=== PATIENT | female | born 1945 | race Caucasian/White ===

== ENCOUNTER → 2018-05-15 11:44 | Outpatient (CLI) | payer MEDICARE, SELFPAY ==
--- NOTE | 2018-05-15 | IMM_PTH ---
PATIENT: GREGORY BECK LOC: [facility] U#:[id number] AGE/SX: 79/F ROOM: RE05/15/[address]: Dr. Michele Salguero MD : 1945 BED: DIS: SPEC #: [id number] RECD: 05/18/18 12:58 STATUS: MONSE REQ #: [id number] NILESH: 05/15/18 00:[address]: Michele Salguero DEPT: IMMUNOHISTOCHEMISTRY RECD BY: Ashanti Harris Tissues: Endometrium, NOS Procedures: CA-125 (add) CEA (add) CK19 (add) CK7 (add) Vimentin (add) ER (initial) PHYSICIAN & INSTITUTION [place] [id number] SPECIMEN INFORMATION: Tissue Source: Endometrial biopsy Clinical Info: Irregular bleeding/postmenopausal Specimen Number: [id number] CPT code: 81221, 19159 x5 METHODOLOGY: Deparaffinized sections of prefer/formalin-fixed tissue or PAP/DQ stained slides are incubated with monoclonal/polyclonal antibodies/oligonucleotide probes. Localization is made via biotin free immunoperoxidase method. Appropriate controls are performed and reacted as expected. Results on target cell population are indicated in the following table: RESULTS: ANTIBODY / CLONE RESULT ER (6F11) positive CK19 (A53-B/A2.26) positive Vimentin (V9) positive CEA (11-7/TF-3HB-1) positive, focal CK7 (OV-TL12/30) positive CA125 (OC125) positive These tests were developed and their performance characteristics determined by [facility]. They may not have been cleared or approved by the U.S. Food and Drug Administration. The FDA has determined that such clearance or approval is not necessary. INTERPRETATION: Endometrial biopsy: Consistent with endometrial adenocarcinoma, endometrioid type, FIGO 1. AM:alexa 05/19/18
--- NOTE | 2018-05-15 10:45 | EMB_PTH ---
PATIENT: GREGORY BECK LOC: [facility] U#:[id number] AGE/SX: 79/F ROOM: RE05/15/[address]: Dr. Michele Salguero MD : 1945 BED: DIS: SPEC #: [id number] RECD: 05/15/18 11:36 STATUS: MONSE FOSTER #: [id number] NILESH: 05/15/18 10:[address]: Michele Salguero DEPT: SURGICAL PATHOLOGY RECD BY: Bladimir Torres Tissues: Endometrium, NOS Procedures: Surgery Specimen Level IV HEADER OPERATION: Endometrial biopsy PRE-OP DIAGNOSIS: Irregular bleeding / postmenopausal TISSUE SUBMITTED: Endometrium MICROSCOPIC DIAGNOSIS Endometrium, biopsy: Endometrial adenocarcinoma, FIGO grade 1/3 AM:alexa 05/18/18 COMMENT Immunohistochemistry ([id number]) supports the above diagnosis. Case has been reviewed in consultation with Dr. Verma who concurs with the above diagnosis. IDC:SJ MICROSCOPIC DESCRIPTION Slides are reviewed. GROSS DESCRIPTION Received in fixative is one container labeled with the patient's name and designated endometrial biopsy. The specimen consists of multiple irregular and elongated fragments of reddish-mcghee soft tissue that in aggregate measure 2.5 x 2 x 0.2 cm. The specimen is totally submitted in one cassette. / AM:alexa 05/15/18 TC:0 [facility]: [id number]
== END ==
PROVIDERS: Visit Provider Obstetrics & Gynecology
DX: C54.1 Malignant neoplasm of endometrium (principal); Z78.0 Asymptomatic menopausal state
CPT/HCPCS: 88305; 88341; 88342

== ENCOUNTER → 2020-11-09 09:29 | Outpatient (CLI) | payer MEDICARE, SELFPAY ==
--- NOTE | 2020-11-09 09:33 | BI_ITS ---
MAMMOGRAPHY - BILATERAL SCREENING REASON FOR EXAM: Female, 74 years old. Routine annual screening examination. PERTINENT HISTORY: Aunt with breast cancer. TECHNIQUE: Digital bilateral breast florencio (3D mammographic acquisition) in the CC and MLO projections. 2-D mediolateral oblique (MLO) and craniocaudad (CC) views of both breasts were obtained. CAD: Full Field Digital Mammography with Computer Added Detection was performed. COMPARISON: Comparison is made with prior outside examination dated 10/19/2019. FINDINGS: Breast Composition: There are scattered areas of fibroglandular density. There are no dominant masses or suspicious calcifications. No other significant abnormalities are identified. There has been no significant change since the prior study. BI/SCREEN MAMM (CAD) W/FLORENCIO BILAT IMPRESSION: Stable bilateral screening mammogram. Yearly follow-up mammogram recommended. (A) ASSESSMENT CATEGORY: BIRADS Category 1: Negative. A letter regarding these results will be sent to the patient by the facility within 30 days. Approximately 10% of breast cancers are not detected by mammography. A normal mammogram should not delay biopsy of a clinically suspicious abnormality. [id number] Electronically Signed: Yon Louis, at 10:37 EST , Service support ,
== END ==
PROVIDERS: PCP Family Medicine; Referring Provider Physician Assistant; Visit Provider Physician Assistant
DX: Z12.31 Encounter for screening mammogram for malignant neoplasm of breast (principal)
CPT/HCPCS: 77063; 77067

== ENCOUNTER 2021-01-18 14:45 | Outpatient (RCR) | payer MEDICARE, SELFPAY ==
[2021-01-18] MEDS: COVID-19 VACC, MRNA(PFIZER)/PF 30 MCG/0.3 ML SYRINGE IM (13:52)
[2021-02-08] MEDS: COVID-19 VACC, MRNA(PFIZER)/PF 30 MCG/0.3 ML SYRINGE IM (13:53)
== END 2021-04-17 23:59 ==
LOC: IMMUN 14:45
PROVIDERS: PCP Family Medicine; Visit Provider Family Medicine
DX: Z23 Encounter for immunization (principal)
CPT/HCPCS: 0001A; 0002A; 91300

== ENCOUNTER → 2021-10-16 | Outpatient (CLI) | payer MEDICARE, SELFPAY ==
[2021-10-19 16:14] LABS: HPV APTIMA, High Risk Negative (Negative)
== END | disposition home or self-care (01) ==
LOC: LABSPEC 16:54
PROVIDERS: PCP Family Medicine; Referring Provider Obstetrics & Gynecology; Visit Provider Obstetrics & Gynecology
DX: N95.0 Postmenopausal bleeding (principal); Z85.42 Personal history of malignant neoplasm of other parts of uterus
CPT/HCPCS: 87624; 88175; G0145

== ENCOUNTER 2021-11-16 12:41 | Emergency (ER) | payer MEDICARE, SELFPAY ==
[2021-11-16 12:42] VITALS: BP 181/73; PULSE 77; RESP 20; TEMP 36.3; O2SAT 98; BMI 44.2
[2021-11-16 12:44] VITALS: BP 122/61; PULSE 70; RESP 20; TEMP 36.8; O2SAT 97
--- NOTE | 2021-11-16 13:10 | EKG12_ITS ---
Test Reason : SOB Blood Pressure : / mmHG Vent. Rate : 068 BPM Atrial Rate : 068 BPM P-R Int : 138 ms QRS Dur : 084 ms QT Int : 428 ms P-R-T Axes : 048 015 028 degrees QTc Int : 455 ms Normal sinus rhythm Normal ECG Confirmed by TOBIAS OLIVER, SOLOMON ([id number]), editor map GILSON PABLO ([id number]) on 11/21/2021 11:20:33 AM Referred By: SANA Confirmed By:SOLOMON COLLADO MD
--- NOTE | 2021-11-16 13:12 | EX.ED.DYSGE1 ---
HPI History of Present Illness Chief Complaint: Shortness of Breath Informant: patient Onset/Context/Timing Onset: Days (10 days) Context: Gradual Onset Timing: Waxes and wanes Current Severity: Moderate Maximum Severity: Moderate Narrative Narrative: She presents with 10-day history of just not feeling well. She was exposed to COVID and believes she likely has COVID. First night of her illness she had rigors. She has not measured her fever. She complains of shortness of breath with chest tightness. She complains of pain on the right sternal border for the past week, worse when she lies down. She presents to the ER today stating she just cannot take it anymore. She does report vomiting and diarrhea but is been forcing herself to eat and drink each day. [facility] Medical History Bilateral plantar fasciitis H/O cancer of uterus Hypertension Home Medications amlodipine 10 mg tablet 10 mg PO DAILY 10/16/21 [History Last Taken Unknown] furosemide 80 mg tablet 160 mg PO DAILY tab 10/16/21 [History Last Taken Unknown] losartan 50 mg tablet 100 mg PO DAILY tab 10/16/21 [History Last Taken Unknown] metolazone 5 mg tablet 5 mg PO ONCE PRN 10/16/21 [History Last Taken Unknown] pantoprazole 40 mg tablet,delayed release 40 mg PO DAILY 10/16/21 [History Last Taken Unknown] potassium chloride 10 mEq capsule,extended release 20 meq PO DAILY cap 10/16/21 [History Last Taken Unknown] Allergy/AdvReac Type Severity Reaction Status Date / Time No Known Allergies Allergy Verified 11/16/21 12:52 Family History Mother Diabetes CVA (cerebral vascular accident) Surgical History History of right hip replacement S/P breast biopsy S/P carpal tunnel release S/P cataract surgery S/P total hysterectomy Status post bilateral knee replacements Status post left hip replacement Social History Smoking Status: Current every day smoker tobacco type: cigarettes alcohol intake: current alcohol intake frequency: holidays/special occasions only substance use type: does not use caffeine: Yes what type of physical activity do you participate in: none seatbelt use: always do you feel safe at home: Yes additional social history: ROS ROS ED Constitutional Constitutional ED: Reports chills, fever(s) and subjective Eyes Eyes: Denies change in vision ENT ENT ED: Reports other Details: Congestion ; Denies sore throat Cardiovascular Cardiovascular: Reports chest pain Respiratory/Chest Respiratory/Chest: Reports cough and dyspnea Gastrointestinal Gastrointestinal: Reports diarrhea, nausea and vomiting; Denies abdominal pain Genitourinary Genitourinary ED: Denies dysuria Musculoskeletal Musculoskeletal: Reports myalgias; Denies back pain Integumentary Denies rash Neurologic Neurologic: Reports headache(s) and weakness Psychiatric Psychiatric: Denies anxiety or depression Allergic/Immunologic Allergic/Immunologic ED: Denies urticaria EXAM Physical Exam Const Vital Signs: 11/16/21 12:42 11/16/21 12:44 11/16/21 12:58 Temperature 97.4 F L 98.2 F Temperature Source Temporal Temporal Pulse Rate 77 70 Respiratory Rate 20 H 20 H Respiratory Effort Short of Breath Respiratory Depth Normal Blood Pressure 181/73 H 122/61 H Blood Pressure Mean 109 81 Pulse Ox 98 97 Oxygen Delivery Method Room Air Room Air 11/16/21 17:22 11/16/21 18:26 11/16/21 19:19 Temperature 98.2 F 97.9 F 98.0 F Temperature Source Temporal Temporal Temporal Pulse Rate 69 63 74 Respiratory Rate 17 17 17 Respiratory Effort Respiratory Depth Blood Pressure 122/61 H 123/55 H 123/74 H Blood Pressure Mean 81 77 90 Pulse Ox 97 94 95 Oxygen Delivery Method Room Air Room Air Room Air Positive well nourished and well developed General Appearance ED: well developed HEENT Reports moist mucous membranes Eyes PERRL and EOMs intact bilaterally Neck supple Chest Wall inspection of chest normal and palpation of chest normal Resp normal respiratory effort and clear to auscultation bilaterally Cardio regular rate and regular rhythm GI non-tender Auscultation: hypoactive bowel sounds Palpation: soft Extremity normal to inspection Neuro oriented x3 Sensorium / Orientation: alert Psych mental status grossly normal Skin no rashes or lesions noted MDM MDM MDM Narrative Medical decision making narrative: Lab work, chest x-ray, EKG obtained. Patient given 500 cc IV fluid bolus. COVID PCR sent based on the patient's timeline of symptoms. Lab Data Attestation: I reviewed the patient's lab results. Labs: Laboratory Results - last 24 hr 11/16/21 11/16/21 11/16/21 13:40 13:40 13:53 WBC 5.3 RBC 4.27 Hgb 11.1 L Hct 35.2 L MCV 82.4 MCH 26.0 L MCHC 31.5 L RDW Std Deviation 42.8 RDW Coeff of Issa 14.4 Plt Count 228 MPV 10.4 Immature Gran % (Auto) 0.600 Neut % (Auto) 73.5 H Lymph % (Auto) 17.1 L [place] % (Auto) 7.6 Eos % (Auto) 0.8 Baso % (Auto) 0.4 Absolute Neuts (auto) 3.9 Absolute Lymphs (auto) 0.90 Nucleated RBC % 0 D-Dimer Quant (PE/DVT) Sodium Cancelled Potassium Cancelled Chloride Cancelled Carbon Dioxide Cancelled Anion Gap Cancelled BUN Cancelled Creatinine Cancelled Estim Creat Clear Calc Cancelled Est GFR (MDRD) Af Amer Cancelled Est GFR (MDRD) Non-Af Cancelled BUN/Creatinine Ratio Cancelled Glucose Cancelled Calcium Cancelled Total Bilirubin Cancelled Direct Bilirubin Cancelled AST Cancelled ALT Cancelled Alkaline Phosphatase Cancelled Troponin I High Sens Cancelled Total Protein Cancelled Albumin Cancelled Globulin Cancelled COVID-19 (IGOR) Detected 11/16/21 11/16/21 15:55 15:55 WBC RBC Hgb Hct MCV MCH MCHC RDW Std Deviation RDW Coeff of Issa Plt Count MPV Immature Gran % (Auto) Neut % (Auto) Lymph % (Auto) [place] % (Auto) Eos % (Auto) Baso % (Auto) Absolute Neuts (auto) Absolute Lymphs (auto) Nucleated RBC % D-Dimer Quant (PE/DVT) 1.45 H* Sodium 140 Potassium 3.2 L Chloride 104 Carbon Dioxide 26.0 Anion Gap 10 BUN 10 Creatinine 0.82 Estim Creat Clear Calc 54.98 Est GFR (MDRD) Af Amer 87 Est GFR (MDRD) Non-Af 72 BUN/Creatinine Ratio 12.2 Glucose 116 H Calcium 8.5 Total Bilirubin 0.50 Direct Bilirubin 0.17 AST 40 H ALT 49 Alkaline Phosphatase 84 Troponin I High Sens 9 Total Protein 6.5 Albumin 2.5 L Globulin 4.0 COVID-19 (IGOR) Radiography Chest X-Ray - ED: 1 View, Read by ED Physician and Chronic Changes Diagnostic Testing: Clinical Impression(s) from Imaging Studies Chest X-Ray 11/16/21 14:48 IMPRESSION: Patchy infiltrates in the peripheral aspect of the right upper lobe as well as patchy infiltrates in the right lower lobe. Electronically Signed: Yon Louis MD at 15:11 EST , Service support , Chest CTA 11/16/21 17:08 IMPRESSION: 1. Gallstones. 2. No demonstrated pulmonary embolism or arterial dissection. 3. There is bilateral pneumonia. Electronically Signed: Wero Meraz MD at 17:59 EST , Service support , EKG Initial EKG: Attestation: I personally reviewed and interpreted this EKG as follows: Interpretation: Sinus Rhythm (Sinus at 68 with no acute ischemia) Treatment and Re-Evaluation Comments:: On repeat evaluation patient resting comfortably. Lab work reviewed and largely unremarkable. Potassium is slightly low at 3.2 and D-dimer elevated at 1.45. CTA of the chest reveals evidence of pneumonia but no evidence of PE. Patient was ambulated in the emergency room. O2 sat went from 97% to 94%. At this time she is to continue supportive care at home. She is outside the treatment window for monoclonal antibody therapy. Discharge Plan Triage Chief Complaint: Shortness of Breath ED Provider: Macy Thayer Dx/Rx/DC Orders Clinical Impression: COVID-19 Instructions: Coronavirus Disease 2019 (COVID-19): Overview, Coronavirus Disease 2019 (COVID-19): Caring for Yourself or Others Prescriptions: No Action potassium chloride 10 mEq capsule, extended release 20 meq PO DAILY RF: 0 amlodipine 10 mg tablet 10 mg PO DAILY RF: 0 losartan 50 mg tablet 100 mg PO DAILY RF: 0 furosemide 80 mg tablet 160 mg PO DAILY RF: 0 pantoprazole 40 mg tablet,delayed release (DR/EC) 40 mg PO DAILY RF: 0 metolazone 5 mg tablet 5 mg PO ONCE PRN (Reason: Edema) RF: 0 Primary Care Provider: Jarad Camargo Referrals: Jarad Camargo MD [Primary Care Provider] - 1-2 Weeks Disposition Disposition: Home, Self Care
[2021-11-16 14:03] LABS: Absolute Neutrophil Count 3.9 X10^3/uL (2.0-7.7); Basophil# 0.02 X10^3/uL; Basophil% 0.4 % (0-1); Eosinophil# 0.04 X10^3/uL; Eosinophils% 0.8 % (0-5); Hematocrit 35.2 % (37-47); Hemoglobin 11.1 g/dL (12.0-15.0); Lymphocyte % 17.1 % (19-41); Mean Corp Hgb Conc 31.5 g/dL (32-36); Mean Corpuscular Volume 82.4 fL (81-99); Mean Platelet Vol. 10.4 fl (6.2-12.0); Monocyte% 7.6 % (0-10); NRBC Flagged by Analyzer 0 % (0-5); Neutrophil # 3.88 X10^3/uL (2.7-7.7); Neutrophil % 73.5 % (47-70); Platelet Count 228 K/mm3 (150-450); RBC Distribution Width CV 14.4 % (11.6-14.6); RBC Distribution Width SD 42.8 fl (35.1-43.9); Red Blood Count 4.27 M/mm3 (4.2-5.4); White Blood Count 5.3 K/mm3 (4.4-11.0)
--- NOTE | 2021-11-16 14:48 | RAD_ITS ---
STUDY: X-RAY CHEST REASON FOR EXAM: Female, 75 years old. Chest pain. TECHNIQUE: Single AP portable view of the chest. COMPARISON: None. FINDINGS: Patchy infiltrates in the peripheral aspect of the right upper lobe as well as in the right lower. Follow-up recommended. There is no demonstrated pleural abnormality. Normal size heart. Normal mediastinum and janelle. Normal visualized pulmonary arteries. There is atherosclerotic tortuosity of the aortic arch and descending thoracic aorta. There are diffuse degenerative changes of the visualized thoracic spine. There is degenerative osteoarthritis of the bilateral shoulders. There is no demonstrated abnormality of the visualized soft tissue structures of the upper abdomen. RAD/Chest 1 View (Portable) IMPRESSION: Patchy infiltrates in the peripheral aspect of the right upper lobe as well as patchy infiltrates in the right lower lobe. Electronically Signed: Yon Louis MD at 15:11 EST , Service support ,
[2021-11-16 16:23] LABS: AST(SGOT) 40 U/L (15-37); Alanine Aminotransfer ALT/SGPT 49 U/L (13-56); Albumin, Serum 2.5 g/dL (3.2-5.0); Alkaline Phosphatase 84 U/L (45-117); Anion Gap 10 (5-15); BUN 10 mg/dL (7-18); BUN/Creat Ratio 12.2 RATIO (10-20); Bilirubin, Direct 0.17 mg/dL (0.00-0.30); Calcium,Total 8.5 mg/dL (8.5-10.1); Chloride 104 mmol/L (98-107); Creatinine, Serum 0.82 mg/dL (0.55-1.02); EST Glomerular Filtration Rate 72 mL/min (>60); Est Glom Filt Rate - Afr Amer 87 mL/min (>60); Estimated Creatinine Clearance 54.98 ml/min; Glucose 116 mg/dL (74-106); Potassium 3.2 mmol/L (3.5-5.1); Protein, Total 6.5 g/dL (6.4-8.2); Sodium Level 140 mmol/L (136-145); Troponin-I HS 9 pg/mL (3.0-54.0)
[2021-11-16 16:43] LABS: D-Dimer Quantitative (DVT/PE) 1.45 FEU/ug/m (0.27-0.49)
--- NOTE | 2021-11-16 17:08 | CT_ITS ---
EXAM: CT ANGIOGRAPHY CHEST WITHOUT AND WITH INTRAVENOUS CONTRAST CLINICAL INDICATION: PE COUGH. SOB TECHNIQUE: Helically acquired angiography images were obtained of the chest without and with intravenous contrast. This CT exam was performed using one or more of the following dose reduction techniques: automated exposure control, adjustment of the mA and/or kV according to patient size, and/or use of iterative reconstruction technique. This report was created using [employer] report generation technology. MIP reconstructed images were created and reviewed. CONTRAST: IV 100mL [id number] COMPARISON: None. FINDINGS: PULMONARY ARTERIES: No demonstrated pulmonary embolism or arterial dissection. AORTA: There is atherosclerotic calcification of the aortic arch with tortuosity and elongation of the aortic arch and descending thoracic aorta. Normal in caliber. No evidence of dissection. GREAT VESSELS OF AORTIC ARCH: Unremarkable. Normal in caliber. No evidence of dissection. LUNGS AND PLEURAL SPACES: There is bilateral pneumonia. No mass. No pleural effusion or thickening. HEART: There are calcifications of the coronary arteries. No pericardial effusion. No signs of right heart strain, ratio of right ventricle to left ventricle measures less than 1. MEDIASTINUM: Minor hilar and mediastinal adenopathy. Esophagus is unremarkable. No hiatal hernia. THYROID: Unremarkable. No thyroid lesions. BONES/JOINTS: There are degenerative findings of the thoracic spine. No suspicious lytic or blastic abnormality. GALLBLADDER AND BILE DUCTS: Gallstones. CT/CTA Chest W/WO Contrast IMPRESSION: 1. Gallstones. 2. No demonstrated pulmonary embolism or arterial dissection. 3. There is bilateral pneumonia. Electronically Signed: Wero Meraz MD at 17:59 EST , Service support ,
[2021-11-16 17:22] VITALS: BP 122/61; PULSE 69; RESP 17; TEMP 36.8; O2SAT 97
[2021-11-16 18:26] VITALS: BP 123/55; PULSE 63; RESP 17; TEMP 36.6; O2SAT 94
[2021-11-16 19:00] VITALS: O2SAT 96
[2021-11-16 19:19] VITALS: BP 123/74; PULSE 74; RESP 17; TEMP 36.7; O2SAT 95
[2021-11-16] MEDS: Potassium Chloride Oral Tablet 20 MEQ 40 MEQ PO (19:46)
== END 2021-11-16 19:47 | disposition home or self-care (01) ==
PROVIDERS: Emergency Provider Emergency Medicine; PCP Family Medicine; Visit Provider Emergency Medicine
DX: U07.1 COVID-19 (principal); F17.210 Nicotine dependence, cigarettes, uncomplicated; I10 Essential (primary) hypertension; Z79.899 Other long term (current) drug therapy; Z85.42 Personal history of malignant neoplasm of other parts of uterus
CPT/HCPCS: 36415; 71045; 71275; 80048; 80076; 84484; 85025; 85379; 87635; 93005; 96360; 99283; J7030; Q9967; U0003; U0005

== ENCOUNTER 2022-01-07 13:31 | Outpatient (CLI) | payer MEDICARE, SELFPAY ==
--- NOTE | 2022-01-07 13:35 | BI_ITS ---
MAMMOGRAPHY - BILATERAL SCREENING REASON FOR EXAM: Female, 76 years old. Routine annual screening examination. PERTINENT HISTORY: Aunt with breast cancer. Remote left excisional breast biopsy. TECHNIQUE: Digital bilateral breast florencio (3D mammographic acquisition) in the CC and MLO projections. 2-D mediolateral oblique (MLO) and craniocaudad (CC) views of both breasts were obtained. CAD: Full Field Digital Mammography with Computer Added Detection was performed. COMPARISON: Comparison is made with prior study dated 11/09/2020. FINDINGS: Breast Composition: There are scattered areas of fibroglandular density. There are no dominant masses or suspicious calcifications. There is a 7.2 mm well-defined nodule in the deep aspect of the right breast as seen on the MLO view. This was not seen on prior study although it might have been present at that time due to its positioning.. Correlation with ultrasound is recommended. No other significant abnormalities are identified. BI/SCRN MAMM (CAD)W/FLORENCIO BILAT IMPRESSION: 7.2 mm well-defined nodule in the deep aspect of the right breast as seen on the lateral oblique view. Correlation with ultrasound is recommended. ASSESSMENT CATEGORY: BIRADS Category 0: Incomplete. Need additional imaging evaluation. A letter regarding these results will be sent to the patient by the facility within 30 days. Approximately 10% of breast cancers are not detected by mammography. A normal mammogram should not delay biopsy of a clinically suspicious abnormality. [id number] Electronically Signed: Yon Louis MD at 14:47 EST ,
== END 2022-01-07 23:59 | disposition home or self-care (01) ==
LOC: OPBI 13:32
PROVIDERS: PCP Family Medicine; Visit Provider Physician Assistant
DX: Z12.31 Encounter for screening mammogram for malignant neoplasm of breast (principal)
CPT/HCPCS: 77063; 77067

== ENCOUNTER 2022-01-10 08:20 | Outpatient (CLI) | payer MEDICARE, SELFPAY ==
--- NOTE | 2022-01-10 08:24 | US_ITS ---
STUDY: ULTRASOUND BREAST - RIGHT REASON FOR EXAM: Female, 76 years old. Abnormal screening mammogram. TECHNIQUE: Axial and longitudinal images of the RIGHT breast were performed with a high resolution ultrasound transducer. # OF IMAGES: 9 COMPARISON: Comparison is made with prior mammogram dated 01/07/2022. FINDINGS: RIGHT Breast: The mammographic abnormality corresponds to an 8 mm x 5 mm x 4 mm benign-appearing lymph node at the 8 o''clock position of the breast at 8 cm from nipple. US/Breast Limited Unilateral IMPRESSION: The mammographic abnormality corresponds to an 8 mm x 5 mm x 4 mm benign-appearing lymph node at the 8 o''clock position of the breast at 8 cm from nipple. ASSESSMENT CATEGORY: BIRADS Category 2: Benign. A letter regarding these results will be sent to the patient by the facility within 30 days. Electronically Signed: Yon Louis MD at 8:31 EST ,
== END 2022-01-10 23:59 | disposition home or self-care (01) ==
LOC: OPUS 08:21
PROVIDERS: PCP Family Medicine; Visit Provider Physician Assistant
DX: R92.2 Inconclusive mammogram (principal)
CPT/HCPCS: 76642

== ENCOUNTER 2022-04-17 08:37 | Emergency (ER) | payer MEDICARE, SELFPAY ==
[2022-04-17 08:38] VITALS: BP 167/67; PULSE 75; RESP 18; TEMP 36.7; O2SAT 98; BMI 43.2
--- NOTE | 2022-04-17 09:14 | RAD_ITS ---
STUDY: X-RAY - LEFT HAND REASON FOR EXAM: Female, 76 years old. Atraumatic pain. include wrist as much as possible TECHNIQUE: 3 view(s) of the hand. COMPARISON: None. FINDINGS: Normal radiocarpal articulation. Normal distal radioulnar joint. Calcification of the triangular fibrocartilage. Normal visualized carpal bones. Normal carpal articulations There is degenerative arthrosis of the carpometacarpal articulation of the thumb with lateral subluxation of the first metacarpus. Normal second through fifth carpometacarpal joints. Normal metacarpi. Normal metacarpophalangeal joint of the thumb. Normal interphalangeal joint of the thumb. Normal proximal and distal phalanges of the thumb. Normal metacarpophalangeal joints of the second through fifth fingers. Normal proximal and distal interphalangeal joints of the second through fifth fingers. Normal phalanges of the second through fifth fingers. The soft tissue structures are unremarkable. 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 Electronically Signed: Yon Louis MD at 10:04 EDT ,
--- NOTE | 2022-04-17 09:15 | EX.ED.UPPERE ---
HPI History of Present Illness Chief Complaint: Upper Extremity Injury Detail of Chief Complaint: Atraumatic left hand pain Informant: patient Onset/Context/Timing Onset: Today and Yesterday Context: Gradual Onset Timing: Continuous Quality of Pain: Sharp Current Severity: Mild Maximum Severity: Moderate Associated Symptoms Associated Symptoms: Negative for Parasthesia, Weakness and Loss of Funtion Narrative Narrative: 72-year-old female complaining of left hand and wrist pain. Began yesterday. Denies any fall injury or trauma. Prior history but it resolved on its own and she never had it evaluated. She has had prior carpal tunnel surgery in this hand. Denies any redness or swelling. Worse with movement. Prior similar symptoms: Yes Recent Illness/Hospitalization: No PFSH PFSH Medical History Bilateral plantar fasciitis H/O cancer of uterus Hypertension Home Medications amlodipine 10 mg tablet 10 mg PO DAILY 10/16/21 [History Last Taken Unknown] furosemide 80 mg tablet 160 mg PO DAILY tab 10/16/21 [History Last Taken Unknown] losartan 50 mg tablet 100 mg PO DAILY tab 10/16/21 [History Last Taken Unknown] metolazone 5 mg tablet 5 mg PO ONCE PRN 10/16/21 [History Last Taken Unknown] pantoprazole 40 mg tablet,delayed release 40 mg PO DAILY 10/16/21 [History Last Taken Unknown] potassium chloride 10 mEq capsule,extended release 20 meq PO DAILY cap 10/16/21 [History Last Taken Unknown] Allergy/AdvReac Type Severity Reaction Status Date / Time No Known Allergies Allergy Verified 04/17/22 08:37 Family History Mother Diabetes CVA (cerebral vascular accident) Surgical History History of right hip replacement S/P breast biopsy S/P carpal tunnel release S/P cataract surgery S/P total hysterectomy Status post bilateral knee replacements Status post left hip replacement Social History Smoking Status: Former smoker alcohol intake: current alcohol intake frequency: holidays/special occasions only substance use type: does not use caffeine: Yes what type of physical activity do you participate in: none seatbelt use: always do you feel safe at home: Yes additional social history: ROS ROS ED ROS Narrative Denies recent illness. Review of Systems ROS Unobtainable: Denies due to encephalopathy Constitutional Constitutional ED: Denies fever(s) Eyes Eyes: Denies change in vision ENT ENT ED: Denies ear pain Cardiovascular Cardiovascular: Denies chest pain Respiratory/Chest Respiratory/Chest: Denies cough or dyspnea Gastrointestinal Gastrointestinal: Denies abdominal pain, diarrhea, nausea or vomiting Genitourinary Genitourinary ED: Denies dysuria Musculoskeletal Musculoskeletal: Denies myalgias Integumentary Denies rash Neurologic Neurologic: Denies headache(s) Psychiatric Psychiatric: Denies depression Endocrine Endocrinology: Denies polyuria Hematologic/Lymphatic Hematologic/Lymphatic: Denies easy bruising Allergic/Immunologic Allergic/Immunologic ED: Denies urticaria EXAM Physical Exam Narrative Exam Narrative: Well-appearing 76-year-old female. Vital signs stable afebrile. H EENT exam unremarkable. Lungs are clear. Heart regular rhythm. Abdomen soft nontender. Moving all 4 extremities. She complains of pain in the dorsum of her left hand. And wrist. There is no deformity. She complains of discomfort with range of motion. There is no redness or warmth. No significant swelling. She has normal cap refill and touch sensation all digits. She has a negative wrist tap. Forearm and shoulder are unremarkable. She has a strong radial pulse. Const Vital Signs: 04/17/22 08:38 Temperature 98.0 F Temperature Source Temporal Pulse Rate 75 Respiratory Rate 18 Blood Pressure 167/67 H Blood Pressure Mean 100 Pulse Ox 98 Oxygen Delivery Method Room Air Positive well nourished, well developed and obese; Negative for cachectic, contractures or unkempt General Appearance ED: well developed and NAD; Negative for unkempt, cachectic, contractures, cyanotic or diaphoretic Nutritional Appearance: obese; Negative for cachectic HEENT Reports moist mucous membranes normocephalic and atraumatic; Negative for trauma or tenderness Eyes PERRL and EOMs intact bilaterally Neck full ROM and supple General: Negative for tenderness Chest Wall inspection of chest normal and palpation of chest normal Resp normal respiratory effort and clear to auscultation bilaterally Effort and Inspection: Negative for pain with movement Auscultation: Negative for rales, rhonchi or wheezes Cardio regular rate, regular rhythm, S1 normal heart sound, S2 normal heart sound and no murmurs GI non-tender, non-distended and no masses Auscultation: normoactive bowel sounds Palpation: soft; Negative for tender, guarding or rebound tenderness present Back/Spine no CVA tenderness General Back: Negative for CVA tenderness Cervical Spine: Negative for cervical spine tenderness Thoracic Spine / Upper Back: Negative for thoracic spinal tenderness Extremity normal to inspection and full ROM Extremity Narrative: Tenderness left dorsum of the left hand and wrist. No swelling. No redness. No deformity. Neurovascularly intact. General Extremety ED: Negative for edema General Extremity: Negative for edema Neuro oriented x3, moves all extremities and no focal motor deficits Sensorium / Orientation: alert, oriented to person, oriented to place and oriented to time; Negative for orientation impaired, lethargic or stuporous Motor Exam: strength 5/5 throughout Psych mental status grossly normal Appearance: Negative for unkempt Mood & Affect: Negative for depressed Skin Lesions: no lesions Rashes: no rashes Trauma: no lacerations or abrasions; Negative for abrasion, laceration or puncture MDM MDM MDM Narrative Medical decision making narrative: 76-year-old with atraumatic left wrist and hand pain. Suspect secondary to possibly arthritis or inflammation. No signs of infection. No history or signs of trauma. X-rays being obtained. Treated with p.o. Tylenol. Repeat exam patient is doing well at 9:45 AM. She and I went over her test results. Ice and elevate at home. Motrin 40 mg twice a day next 5 days. Tylenol for pain. Follow-up if not improving. Radiography Diagnostic Testing: Left hand x-ray shows no acute process. 3 views interpreted by myself. Shows no fracture. There is arthritis at the carpal trapezial interface of the thumb. I did go over the films with the patient. Discharge Plan Triage Chief Complaint: Upper Extremity Injury ED Provider: Bharat Grey Dx/Rx/DC Orders Clinical Impression: Arthritis Instructions: ED Osteoarthritis Prescriptions: No Action potassium chloride 10 mEq capsule, extended release 20 meq PO DAILY RF: 0 amlodipine 10 mg tablet 10 mg PO DAILY RF: 0 losartan 50 mg tablet 100 mg PO DAILY RF: 0 furosemide 80 mg tablet 160 mg PO DAILY RF: 0 pantoprazole 40 mg tablet,delayed release (DR/EC) 40 mg PO DAILY RF: 0 metolazone 5 mg tablet 5 mg PO ONCE PRN (Reason: Edema) RF: 0 Primary Care Provider: Jarad Camargo Referrals: Jarad Camargo MD [Primary Care Provider] - 1 Week if not improving Activity Restrictions/Additional Instructions: Pain in your hands secondary to arthritis. Ice and elevate the hand 4-5 times per day for 20 to 30 minutes each time. Motrin, Advil or ibuprofen 40 mg twice a day for the next 5 days. Both this along with the icing will decrease pain and inflammation. Also Tylenol for pain. Follow-up with your doctor if not improving. Disposition Disposition: Home, Self Care
[2022-04-17] MEDS: Acetaminophen 500 MG Tablet 1000 MG PO (09:17)
[2022-04-17 10:12] VITALS: BP 165/65; PULSE 84; RESP 18
== END 2022-04-17 10:10 | disposition home or self-care (01) ==
LOC: ED 09:57
PROVIDERS: Emergency Provider Emergency Medicine; PCP Family Medicine; Visit Provider Emergency Medicine
DX: M19.032 Primary osteoarthritis, left wrist (principal); Z68.41 Body mass index [BMI] 40.0-44.9, adult; I10 Essential (primary) hypertension; Z87.891 Personal history of nicotine dependence; Z85.42 Personal history of malignant neoplasm of other parts of uterus; Z79.899 Other long term (current) drug therapy; E66.9 Obesity, unspecified
CPT/HCPCS: 73130; 99283

== ENCOUNTER → 2023-06-04 | Outpatient (CLI) | payer MEDICARE, SELFPAY ==
--- NOTE | 2023-06-04 10:45 | VUL_PTH ---
PATIENT: GREGORY BECK LOC: [facility] U#:[id number] AGE/SX: 77/F ROOM: RE06/04/[address]: Dr. Macy Bryant DO : 1945 BED: DIS: 06/04/2023 SPEC #: [id number] RECD: 06/04/23 14:03 STATUS: MONSE FOSTER #: [id number] NLIESH: 06/04/23 10:[address]: Macy Bryant DEPT: SURGICAL PATHOLOGY RECD BY: Cassi Toscano ENTERED: 06/05/23 10:44 SP TYPE: VULVA BX OTHR DR: Dr. Jarad Camargo MD Tissues: Vulva, NOS Procedures: Special Stain Group I Surgery Specimen Level IV GMS Stain (control) HEADER OPERATION: Vulvar biopsy PRE-OP DIAGNOSIS: Vulvar disease TISSUE SUBMITTED: Vulva MICROSCOPIC DIAGNOSIS Vulva, biopsy: Consistent with benign fibroepithelial polyp. Negative for fungal organisms. See comment. AM:alexa 06/06/2023 COMMENT GMS stain with matched control was used in the evaluation of this case. MICROSCOPIC DESCRIPTION Slides are reviewed. GROSS DESCRIPTION Received is one container labeled with the patient's name and not further designated. The specimen consists of a piece of mcghee-brown skin measuring 0.4 x 0.4 x 0.3 cm. The entire specimen is submitted in one cassette. / SJ:alexa 06/05/2023 TC:3 CPT: 57039, 64582
== END | disposition home or self-care (01) ==
PROVIDERS: PCP Family Medicine; Referring Provider Obstetrics & Gynecology; Visit Provider Obstetrics & Gynecology
DX: N90.9 Noninflammatory disorder of vulva and perineum, unspecified (principal)
CPT/HCPCS: 88305; 88312

== ENCOUNTER → 2024-07-14 | Outpatient (CLI) | payer MEDICARE, SELFPAY ==
--- NOTE | 2024-07-14 10:27 | RAD_ITS ---
STUDY: X-RAY - RIGHT WRIST REASON FOR EXAM: Female, 78 years old. Pain, swelling TECHNIQUE: 3 view(s) of the wrist were obtained. COMPARISON: None. FINDINGS: Normal visualized distal radius and ulna. Normal radiocarpal articulation. Normal distal radioulnar articulation. Normal carpal bones. Normal carpal articulations. There is degenerative arthrosis of the carpometacarpal articulation of the thumb. Normal second through fifth carpometacarpal articulations. Normal visualized metacarpal bones. Soft tissue swelling. RAD/Wrist min 3 Views IMPRESSION: Soft tissue swelling. Arthrosis of the first carpometacarpal joint. Electronically Signed: Yon Louis MD at 11:25 EDT ,
--- NOTE | 2024-07-14 10:27 | RAD_ITS ---
STUDY: X-RAY - RIGHT HAND REASON FOR EXAM: Female, 78 years old. Pain, swelling TECHNIQUE: 3 view(s) of the hand. COMPARISON: None. FINDINGS: Normal radiocarpal articulation. Normal distal radioulnar joint. Normal visualized carpal bones. Normal carpal articulations There is degenerative arthrosis of the carpometacarpal (CMC) articulation of the thumb. Normal second through fifth carpometacarpal joints. Normal metacarpi. Normal metacarpophalangeal joint of the thumb. Normal interphalangeal joint of the thumb. Normal proximal and distal phalanges of the thumb. Normal metacarpophalangeal joints of the second through fifth fingers. There is diffuse articular joint space narrowing of the proximal and distal interphalangeal joints of the second through fifth fingers, but without erosive changes or periarticular soft tissue swelling. Normal phalanges of the second through fifth fingers. Soft tissue swelling. RAD/Hand Min 3 Views IMPRESSION: Soft tissue swelling. Interphalangeal joint arthrosis. Electronically Signed: Yon Louis MD at 11:24 EDT ,
== END | disposition home or self-care (01) ==
LOC: MTRAD 10:27
PROVIDERS: PCP Family Medicine; Referring Provider Physician Assistant; Visit Provider Physician Assistant
DX: R52 Pain, unspecified (principal)
CPT/HCPCS: 73110; 73130

== ENCOUNTER → 2024-08-24 | Outpatient (CLI) | payer MEDICARE, SELFPAY ==
--- NOTE | 2024-08-24 13:45 | RAD_ITS ---
INDICATION: PAIN Pain in Right Hand around the joints EXAMINATION/TECHNIQUE: X-RAY - RIGHT XR Hand Min 3 Views 3 VIEWS COMPARISON: Prior study dated: 05/13/2024 FINDINGS: BONES: No fracture demonstrated. Mildly osteopenic. Joint space narrowing with subchondral sclerosis and subchondral cysts most pronounced at the first and second carpometacarpal joints, the carpal joints involving the scaphoid and the trapezium and trapezoid, and moderate similar changes at second metacarpophalangeal joint and distal interphalangeal joint, and the interphalangeal joint of the thumb . Changes are similar but appear progressed compared to the prior study. JOINTS: No dislocation. Minimal subluxation at the second digit DIP joint with minimal ulnar displacement. SOFT TISSUES: Unremarkable. RAD/Hand Min 3 Views IMPRESSION: Moderate arthropathy most pronounced at the carpometacarpal joints with interval progression compared to the prior. Minimal ulnar subluxation at second digit DIP joint. No evidence of fracture. Electronically Signed: Lindsey Saucedo MD at 14:52 EDT ,
== END | disposition home or self-care (01) ==
LOC: RAD 13:29
PROVIDERS: PCP Family Medicine; Referring Provider Physician Assistant; Visit Provider Physician Assistant
DX: M25.541 Pain in joints of right hand (principal); R70.0 Elevated erythrocyte sedimentation rate; R79.82 Elevated C-reactive protein (CRP)
CPT/HCPCS: 73130

== ENCOUNTER 2024-09-23 10:00 | Outpatient (RCR) | payer MEDICARE, SELFPAY ==
--- NOTE | 2024-09-13 17:24 | HP.OTEVAL ---
Patient's Visit Information Visit Information Visit Information: GREGORY BECK is a 78 year old F, referred to Occupational Therapy by DAMI Leary, with a diagnosis of right cmc OA. Date of Evaluation: 09/13/24 Occupational Therapist: Keshia Johnston, DENNIS/Nolan, CHT Subjective Subjective: This 78 year old female was seen for OT eval with dx of a right unilateral primary osteoarthrosis of first carpometacarpal joint pt is right handed. pt states in Jun. she was driving and started getting pain and swelling pt states at night her hand was going numb- pt did get a thumb brace and this has decreased her numbness. pt states she went to [facility] and x-rays did say she was bone on bone. just not ready to do anything right now- pt states she would like to know what she can do to support her thumb and not be so painful when she is using her right hand. 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 Pain right wrist: Current Pain Intensity: 4 Pain Intensity Range: 4, 6 and 7 ROM Wrist: right 45/25 left 55/60 CMC: right 10 left 15 MP: right 40 left 40 IP: right 45 left 60 Palmar Abduction: right 40 left 40 Strength Surgical Instrument Repair Specialist: right 20# left 50# Lateral Pinch: right 3# left 10# Tripod Pinch: right 2# left 10# Sensation Sensation Comments: tingling with positional Quick DASH-Disab of Arm,Shoulder& Hand Quick DASH Score: 34.0900 Goals Goal:: pt will demo a increase in right database administrator strength by 20# to increase pts ind. with ADLs by d.c Goal:: pt will report no pain greater than 2/10 with use of brace for ADLs by d.c Goal:: Pt will demo understanding of joint protection and ergonomics when performing BADLs and IADLs by d/c Pt will demo understanding of adaptive Equipment use to decrease stress on joints to allow pt to perform BADSL and IADLS at BENNIE level. Goal:: Pt will demo understanding of using supportive bracing 80% of workday/ADLS to decrease stress on tendon origin to allow healing and decrease pain by end of 2nd session. Rehabilitation General Assessment: pt demo with positive right thumb CMC OA - thumb instability and pain limiting pts functional use of right dominate hand with ADLs and IADLs. pt would benefit from skilled OT services 1x week for 4 weeks to ed. pt on joint protection , ad. eq. and supportive bracing to increase pts IND with home mtg and ADLs. pt demo understanding and agree to POC. Anticipated Interventions Anticipated Interventions: A/AAROM/PROM, Strengthening, Triggerpoint Release, Modalities, Orthoses, Joint Protection/Energy Conservation, Ergonomic Education, Education re assistive Equipment, Education re Diagnosis and Home Program Visit Plan Frequency: 1x/Week Duration: 4 Weeks General Plan: joint protection bracing nerve glide dx ad. eq. to avoid stress on thumb with ADLs TEXT: Thank you for the opportunity to evaluate your patient. For Medicare and Medicare HMO plans, please review the plan of care and approve it. It will need to be FAXED BACK to us at [phone] for Medicare purposes. Please let me know if there are questions or concerns regarding this plan of care. Physician Signature: Date:
--- NOTE | 2025-01-19 13:45 | HP.OT.NRP ---
Patient Information Patient Information: GREGORY BECK was seen in my office for initial evaluation on 09/13/24. The following Plan of Care was established for this patient: POC Established Initial Frequency: 1x/Week Initial Duration: 4 Weeks Plan: bracing joint protection pain management Anticipated Interventions Anticipated Interventions: A/AAROM/PROM, Strengthening, Triggerpoint Release, Modalities, Orthoses, Joint Protection/Energy Conservation, Ergonomic Education, Education re assistive Equipment, Education re Diagnosis and Home Program Last Seen Last Seen: This patient was last seen in our office 09/23/24. Pertinent comments regarding their Occupational therapy will appear below: pt was seen for 2 OT sessions- no further apt have been scheduled. Due to time lapse in services pt is d/c. At this point I will be discontinuing this patient from occupational therapy. I would be happy to see this patient again in the future if found appropriate by the physician. Thank you! Keshia Johnston, OTR/L, CHT
== END 2024-09-23 19:00 | disposition home or self-care (01) ==
LOC: OT 10:00
PROVIDERS: PCP Family Medicine; Referring Provider Physician Assistant Surgical; Visit Provider Physician Assistant Surgical
DX: M18.11 Unilateral primary osteoarthritis of first carpometacarpal joint, right hand (principal); M79.644 Pain in right finger(s)
CPT/HCPCS: 97035; 97140; 97166; 97530; 97760

== ENCOUNTER 2025-05-08 08:15 | Emergency (ER) | payer MEDICARE, SELFPAY ==
[2025-05-08 08:15] VITALS: BP 159/78; PULSE 81; RESP 20; TEMP 36.4; O2SAT 98; BMI 46.0
--- NOTE | 2025-05-08 08:27 | ED.RN ---
pt puts forestry extension specialist light and tells this nurse that she is having sudden onset pain just below the sternum. pt states that the pain radiates into back. this rn asks legal secretary receptionist to call for an EKG. dr shepard notified.
--- NOTE | 2025-05-08 08:33 | EKG12_ITS ---
Test Reason : CP Blood Pressure : */* mmHG Vent. Rate : 85 BPM Atrial Rate : 85 BPM P-R Int : 142 ms QRS Dur : 76 ms QT Int : 378 ms P-R-T Axes : 58 26 34 degrees QTcB Int : 449 ms Normal sinus rhythm Nonspecific ST abnormality Abnormal ECG Confirmed by MARION OLIVER, DAMARI ([id number]), brands editor ANGUS DARBY ([id number]) on 05/10/2025 6:46:12 AM Referred By: Confirmed By: DAMARI SCHULTZ MD
--- NOTE | 2025-05-08 08:34 | ED.VIS.FALL ---
HPI HPI - Fall History of Present Illness Chief Complaint: Fall Informant: patient Occured/Mechanism Occurred: Days Mechanism/Context: Yes same level fall Usually ambulates: Without assistance Pain/Injury Pain Location: head and upper extremity (Left wrist pain) Quality of Pain: Sharp Current Severity: Moderate Maximum Severity: Moderate Associated Symptoms Associated Symptoms: Positive for Loss of function (Loss ability to use the left wrist.); Negative for Parasthesias, Weakness, Inability to ambulate, Loss of consciousness or Amnesia Narrative Narrative: 79-year-old female fell on Friday she just lost her balance coming down 1 step. She went to turn and went down when she landed she landed awkwardly on her left wrist. She was hopeful that she did not hurt the wrist but it has been more painful and she needed to have it evaluated. States she also did hit her head when she went down. Did not think it was that bad. But she has not had a headache since that time. No LOC. She is not on any blood thinners. Otherwise the patient is been doing well. While coming into the emergency department today literally when she got here she developed epigastric lower chest discomfort. She gets this from time to time. It is not exertional. She has no cardiac history. She was worked up in for chest pain workup was negative including a CTA of her chest. She does have a known history of gallstones but denies right upper quadrant pain at this time. Prior similar symptoms: No Recent Illness/Hospitalization: No [facility] Medical History Localized swelling on right hand Gout attack H/O cancer of uterus Bilateral plantar fasciitis Hypertension Home Medications ?Medication ?Instructions ?Recorded ?Last Taken ?Type amlodipine 10 mg tablet 10 mg PO DAILY 10/16/21 Unknown History furosemide 80 mg tablet 160 mg PO DAILY 10/16/21 Unknown History losartan 50 mg tablet 100 mg PO DAILY 10/16/21 Unknown History pantoprazole 40 mg tablet,delayed 40 mg PO DAILY 10/16/21 Unknown History release potassium chloride 10 mEq 20 meq PO DAILY 10/16/21 Unknown History capsule,extended release acetaminophen 650 mg 650 mg PO Q8H 12/03/22 Unknown History tablet,extended release (Tylenol Arthritis Pain) omega-3 fatty acids 1,000 mg 1,000 mg PO DAILY 12/03/22 Unknown History capsule vitamin A-vitamin C-vit E-min 1 tab PO DAILY 12/03/22 Unknown History tablet (Vision tablet) lidocaine 5 % topical ointment 1 applic topical TID PRN pain #30 06/16/23 Unknown Rx grams indomethacin 50 mg capsule 50 mg PO TID #21 caps 07/27/24 Unknown Rx Allergy/AdvReac Type Severity Reaction Status Date / Time No Known Allergies Allergy Verified 05/08/25 08:20 Family History Mother Diabetes CVA (cerebral vascular accident) Surgical History S/P breast biopsy S/P carpal tunnel release S/P cataract surgery S/P total hysterectomy Status post left hip replacement History of right hip replacement Status post bilateral knee replacements Social History Smoking Status: Former smoker alcohol intake: current alcohol intake frequency: holidays/special occasions only substance use type: does not use caffeine: Yes what type of physical activity do you participate in: none seatbelt use: always do you feel safe at home: Yes additional social history: ROS ROS ED ROS Narrative Left wrist pain post fall. Chest pain today. Constitutional Constitutional ED: Denies chills or fever(s) Eyes Eyes: Denies blurry vision ENT ENT ED: Denies ear pain Cardiovascular Cardiovascular: Reports chest pain Respiratory/Chest Respiratory/Chest: Denies cough, dyspnea or dyspnea on exertion Gastrointestinal Gastrointestinal: Denies abdominal pain Genitourinary Genitourinary ED: Denies dysuria or hematuria Musculoskeletal Musculoskeletal: Denies arthralgias or back pain Integumentary Denies abscess Neurologic Neurologic: Denies headache(s) Psychiatric Psychiatric: Denies anxiety Endocrine Endocrinology: Denies polydipsia Hematologic/Lymphatic Hematologic/Lymphatic: Denies easy bleeding Allergic/Immunologic Allergic/Immunologic ED: Denies mouth swelling EXAM Physical Exam Narrative Exam Narrative: 79-year-old female sitting upright in a chair. Vital signs stable afebrile. Pulse ox 98% on room air no hypoxia. H EENT exam pupils round reactive light. Moist membranes. No trauma. Neck nontender. Back nontender. Lungs clear to auscultation bilaterally. Heart regular rhythm rate about 80 no murmur. Chest wall and ribs nontender. No reproducible pain. Abdomen is soft, nontender, nondistended, normal bowel sounds without peritoneal signs. There is no reproducible pain over the abdomen. There is no epigastric nor right upper quadrant or right lower quadrant tenderness. Moving all 4 extremities. The left wrist is tender and swollen. She had an Hayes wrap on it that I took off. She has a palpable radial pulse. She is able to wiggle her fingers. The wrist is swollen and tender primarily over the distal radius. She has limited flexion extension due to pain. The proximal forearm, left elbow, left upper arm are nontender. The right upper extremity and lower extremities are nontender. Normal strength and range of motion. Neurologically she is awake and alert. Const Vital Signs: 05/08/25 08:15 05/08/25 08:22 05/08/25 08:33 Temperature 97.6 F L Temperature Source Temporal Pulse Rate 81 Respiratory Rate 20 H Respiratory Effort Normal Non-Labored Respiratory Depth Normal Respiratory Pattern Normal Blood Pressure 159/78 H Blood Pressure Mean 105 Pulse Ox 98 Oxygen Delivery Method Room Air Room Air Positive well nourished and well developed; Negative for cachectic, contractures or unkempt General Appearance ED: well developed and NAD; Negative for unkempt, cachectic or contractures Nutritional Appearance: Negative for cachectic HEENT Reports normocephalic atraumatic; Negative for trauma, contusion, hematoma or tenderness Eyes PERRL and EOMs intact bilaterally Neck full ROM, no lymphadenopathy and supple Chest Wall inspection of chest normal Resp normal respiratory effort, no retractions and clear to auscultation bilaterally Cardio regular rate, regular rhythm, S1 normal heart sound, S2 normal heart sound and no murmurs GI non-tender, non-distended and no masses Palpation: soft; Negative for guarding or rebound tenderness present Back/Spine no CVA tenderness General Back: Negative for CVA tenderness Cervical Spine: Negative for cervical spine tenderness Lumbar Spine / Lower Back: Negative for lumbar spinal tenderness Neuro oriented x3, CN's II-XII intact bilaterally, moves all extremities, no focal motor deficits and no sensory deficits noted Sanjiv Coma Scale: document GCS findings Spontaneous Obeys Commands Oriented 15 Sensorium / Orientation: alert, oriented to person, oriented to place and oriented to time; Negative for orientation impaired, confused, lethargic or stuporous Motor Exam: strength 5/5 throughout Psych mental status grossly normal and thought process normal Appearance: Negative for unkempt Attitude: No agitated Mood & Affect: Negative for depressed, anxious or tearful Skin Lesions: no lesions Rashes: no rashes MDM MDM MDM Narrative Medical decision making narrative: 79-year-old fall head injury with headache will get a CAT scan. My clinical suspicion for that is low she had no LOC and she is on no blood thinners. Left wrist appears to be broken. Will obtain a left wrist x-ray. When she presented today she started getting epigastric lower chest pain she also be worked up for chest pain. Clinically may not be cardiac. She does have a history of gallstones but currently is having no abdominal pain. Repeat exam at 10:21 AM patient is doing well. No chest pain. No abdominal pain. Repeat exam unchanged. She has a wrist elevated. We went over her x-ray and all of her test results. I explained to her that there is no obvious fracture currently on the x-ray and both myself and the radiologist read it. I offered either splinting or a Velcro wrist splint she chose the wrist splint. She knows that this should progressively improve with ice elevation anti-inflammatories if not get reevaluated marlo-rayed to rule out an occult fracture is not seen at this time on the x-ray. She is comfortable that plan. We talked about 2-hour troponin. She deferred. Clinically I do not think the pain she had was cardiac. History & Record Review Discussion w/independent historian: Patient Additional record(s) reviewed:: Prior inpatient record, Prior outpatient record, Prior ED visit and Prior labs Lab Data Attestation: I reviewed the patient's lab results. Lab results narrative: CBC shows a white 11.9. H&H 12.7 and 37. Platelets 287. Chemistries sodium 139. Gap 18. BUN/creatinine of 18 and 1.1. Glucose 138. Liver enzymes unremarkable. Initial troponin 12. Labs: Laboratory Results - last 24 hr 05/08/25 08:40 WBC 11.9 H RBC 4.63 Hgb 12.7 Hct 37.8 MCV 81.6 MCH 27.4 MCHC 33.6 RDW Std Deviation 43.8 RDW Coeff of Issa 14.9 H Plt Count 287 MPV 10.0 Immature Gran % (Auto) 0.300 Neut % (Auto) 76.7 H Lymph % (Auto) 14.2 L [place] % (Auto) 7.3 Eos % (Auto) 1.2 Baso % (Auto) 0.3 Absolute Neuts (auto) 9.1 H Absolute Lymphs (auto) 1.69 Nucleated RBC % 0 Sodium 139 Potassium 4.0 Chloride 99 Carbon Dioxide 21.7 Anion Gap 18 H BUN 18 Creatinine 1.15 Estim Creat Clear Calc 52.67 Est GFR (MDRD) Non-Af 49 L BUN/Creatinine Ratio 15.7 Glucose 138 H Calcium 9.3 Total Bilirubin 1.05 AST 29 ALT 14 Alkaline Phosphatase 118 H Troponin T High Sens 12 Total Protein 7.1 Albumin 3.9 Globulin 3.2 Albumin/Globulin Ratio 1.2 Radiography Chest X-Ray - ED: 2 View, Read by ED Physician, Read by Radiologist, Heart, Lungs, Mediastinum, Bony Structures, No Acute Disease and Chronic Changes Diagnostic Testing: Clinical Impression(s) from Imaging Studies Brain CT 05/08/25 08:40 IMPRESSION: No acute intracranial finding. Reading Location: [facility] Chest X-Ray 05/08/25 09:10 IMPRESSION: NO ACUTE FINDINGS. Reading Location: [facility] Wrist X-Ray 05/08/25 09:10 IMPRESSION: No obvious acute fracture. Diffuse bone demineralization. Reading Location: [facility] Chest x-ray, 2 views, AP and lateral, interpreted myself and radiologist show no acute abnormality. Chronic changes. Normal cardiac silhouette mediastinum. Left wrist x-ray, 3 views, interpreted by myself and the radiologist shows degenerative arthritis. No acute fracture. Soft tissue swelling. Rhythm Strip Rhythm Strip: Sinus Rhythm Rate: 85 Ectopy: None EKG Initial EKG: Attestation: I personally reviewed and interpreted this EKG as follows: Interpretation: Sinus Rhythm and No Acute Injury Pattern Comments: Normal sinus rhythm rate 85 no acute signs of CA or ischemia. Compared to prior EKG from 2021 unchanged. Prior EKG tracings: available for review Prior: Unchanged Discharge Plan Triage Chief Complaint: Fall ED Provider: Bharat Grey Dx/Rx/DC Orders Clinical Impression: Fall, Left wrist sprain, Head injury, Atypical chest pain, History of hypertension Instructions: ED Chest Pain, Uncertain Cause, ED Head Injury (Adult), ED Wrist Sprain Prescriptions: No Action potassium chloride 10 mEq capsule, extended release 20 meq PO DAILY amlodipine 10 mg tablet 10 mg PO DAILY losartan 50 mg tablet 100 mg PO DAILY furosemide 80 mg tablet 160 mg PO DAILY pantoprazole 40 mg tablet,delayed release (DR/EC) 40 mg PO DAILY omega-3 fatty acids 1,000 mg capsule 1,000 mg PO DAILY acetaminophen [Tylenol Arthritis Pain] 650 mg tablet extended release 650 mg PO Q8H Vision Tablet 1 tab PO DAILY indomethacin 50 mg capsule 50 mg PO TID Qty: 21 0RF Rx Instructions: administer with food or milk lidocaine 5 % ointment 1 applic topical TID PRN (Reason: pain) Qty: 30 1RF Primary Care Provider: Jarad Camargo Referrals: Jarad Camargo MD [Primary Care Provider] - 1 Week if not improving Activity Restrictions/Additional Instructions: Your left wrist appears to be sprained. There is no obvious fracture or break on the x-ray. Ice and elevate it 4-6 times a day 30 minutes to an hour each time. Motrin or Aleve for pain and inflammation. Tylenol for pain. The wrist should progressively start getting better. If not follow-up in a week to have it marlo-rayed. Use the splint is much as possible. It will give you support and help with the pain. Your chest pain workup showed nothing acute. Your EKG, chest x-ray and labs were normal. If you have recurrent pain follow-up with your doctor for further evaluation. You do have gallstones from a prior CAT scan several years ago sometimes that can cause this type of pain. Print Language: Kinyarwanda Disposition Disposition: Home, Self Care
--- OUTSIDE RECORDS SUMMARY | 2025-05-08 08:36 | XMS RPT_ITS | CCD ---
Author Organization [facility] Care Team Providers Care Engineering Librarian Name Role Phone Antonio Cates Unavailable Unavailable PROVIDER, UNKNOWN Unavailable Unavailable Jarad Camargo Unavailable Unavailable Antonio Cates Unavailable Unavailable PROVIDER, UNKNOWN Unavailable Unavailable Jarad Camargo Unavailable Unavailable Dr. Jarad Camargo Primary Care Provider Dr. Jarad Camargo Referring Provider [phone] Macy Bryant Attending Provider [phone] Raza Davila Attending Unavailable Raza Davila Referring Unavailable Jarad Camargo Primary Care Unavailable Esha Vail Attending Unavailable Esha Vail Referring Unavailable Jarad Camargo Primary Care Unavailable Edouard Castillo Attending Unavailable Edouard Castillo Referring Unavailable Jarad Camargo Primary Care Unavailable Raza Davila Attending Unavailable Jarad Camargo Primary Care Unavailable Jarad Camargo Referring Unavailable Raza Davila Attending Unavailable Jarad Camargo Primary Care Unavailable Jarad Camargo Referring Unavailable Dr. Jarad Camargo MD Primary Care Provider Esha Mejias Attending Provider Esha Mejias Referring Provider [phone] Medications Current Medications Medication Drug Class(es) Dates Sig (Normalized) Sig (Original) 8 hr acetaminophen 650 mg extended release oral tablet (2 sources) Start: 12-03-2022 take 1 tablet by mouth every eight hours Acetaminophen (Tylenol Arthritis Pain) 650 mg tablet extended release Active 650 mg PO Q8H December 03, 2022 1:00am amLODIPine 10 mg oral tablet (3 sources) Dihydropyridine Calcium Channel Mireille Start: 10-16-2021 take 1 tablet by mouth once daily Amlodipine 10 mg tablet Active 10 mg PO DAILY October 16, 2021 1:00am furosemide 80 mg oral tablet (3 sources) Loop Diuretic Start: 10-16-2021 take 2 tablets by mouth once daily Furosemide 80 mg tablet Active 160 mg PO DAILY October 16, 2021 1:00am Start: 10-16-2021 take 160 mg by mouth once henry y Furosemide Active 160 MG PO DAILY October 16, 2021 4:25pm indomethacin 50 mg oral capsule (2 sources) Nonsteroidal Anti-inflammatory Drug Start: 07-14-2024 End: 07-27-2024 take 1 capsule by mouth three times daily at mealtime Indomethacin 50 mg capsule Active 50 mg PO THREE TIMES A DAY July 27, 2024 9:58am administer with food or milk lidocaine 0.05 mg/mg topical ointment (2 sources) Antiarrhythmic, Amide Local Anesthetic Start: 06-16-2023 Lidocaine 5 % ointment Active 1 NMA TOPICAL THREE TIMES A DAY as needed for pain June 16, 2023 12:00am Start: 06-13-2023 End: 06-16-2023 Lidocaine Hcl 2 % gel Discon tinued 1 NMA TOPICAL THREE TIMES A DAY as needed for pain June 13, 2023 12:00am June 16, 2023 12:24pm losartan potassium 50 mg oral tablet (3 sources) Angiotensin 2 Receptor Mireille Start: 10-16-2021 take 2 tablets by mouth once daily Losartan 50 mg tablet Active 100 mg PO DAILY October 16, 2021 1:00am Start: 10-16-2021 take 100 mg by mouth once henry y Losartan Active 100 MG PO DAILY October 16, 2021 4:24pm Sammamish-3 Fatty Acids (1 source) Start: 12-03-2022 take 1000 mg by mouth once daily [place]am[place]-3 Fatty Acids Active 1000 MG PO DAILY December 03, 2022 1:00am [place]am[place]-3 Fatty Acids 1,000 mg capsule (1 source) Start: 12-03-2022 take 1 capsule by mouth once daily [place]am[place]-3 Fatty Acids 1,000 mg capsule Active 1000 mg PO DAILY December 03, 2022 1:00am pantoprazole 40 mg delayed release oral tablet (3 sources) Proton Pump Inhibitor Start: 10-16-2021 take 1 tablet by mouth once daily Pantoprazole 40 mg tablet,delayed release (DR/EC) Active 40 mg PO DAILY October 16, 2021 1:00am potassium chloride 10 meq extended release oral capsule (3 sources) Start: 10-16-2021 take 2 capsules by mouth once daily Potassium Chloride 10 mEq capsule, extended release Active 20 meq PO DAILY October 16, 2021 1:00am Start: 10-16-2021 take 20 mEq by mouth once henry y Potassium Chloride Active 20 MEQ PO DAILY October 16, 2021 4:24pm Vitamin A-Vitamin C-Vit E-Mi n (Vision) tablet (2 sources) Start: 12-03-2022 Vitamin A-Ruth min C-Vit E-Min (Vision) tablet Active 1 {tbl} PO DAILY December 03, 2022 1:00am Start: 12-03-2022 take 1 tablet by fany th once daily Vitamin A-Vitamin C-Vit E-Min (Vision) tablet Active 1 TABLET PO DAILY December 03, 2022 1:00am Completed/Discontinued Medications Medication Drug Class(es) Dates Sig (Normalized) Sig (Original) clobetasol propionate 0.5 mg/ml topical cream (2 sources) Corticosteroid Start: 12-03-2022 End: 06-04-2023 Clobetasol 0.05 % cream Discontinued 1 NMA TOPICAL every day in the morning and in the evening 60 December 03, 2022 1:00am June 04, 2023 10:26am use for 12 weeks twice a day followed by once daily metOLazone 5 mg oral tablet (3 sources) Thiazide-like Diuretic Start: 10-16-2021 End: 12-03-2022 take 1 tablet by mouth once as needed for edema Metolazone 5 mg tablet Discontinued 5 mg PO ONCE as needed for Edema October 16, 2021 1:00am December 03, 2022 12:45pm Problems Active Problems Problem Classification Problem Date Documented Da te Episodic/Chronic Cancer of uterus (4 sources) Malignant neoplasm of uterus, part unspecified; Translations: [Malignant neoplasm of endometrium] Onset: 05-27-2018 Chronic Cancer of uterus (3 sources) History of malignant neoplasm of uterine body; Translations: [Personal history of malignant neoplasm of other parts of uterus] 11-16-2021 Episodic Esophageal disorders (2 sources) Gastro-esophageal reflux disease without esophagitis; Translations: [Gastro-esophageal reflux disease without esophagitis] Onset: 06-02-2018 Chronic Essential hypertension (5 sources) Essential (primary) hypertension; Translations: [Hypertensive disorder] Onset: 06-02-2018 11-16-2021 Chronic Fluid and electrolyte disorders (3 sources) Hypokalemia; Translations: [Hypokalemia] 10-16-2021 Episodic Gout and other crystal arthropathies (1 source) Acute gout; Translations: [Gout, unspecified] 07-14-2024 Chronic Medical examination/evaluation (2 sources) Encounter for other preprocedural examination; Translations: [Encounter for other preprocedural examination] Onset: 05-27-2018 Episodic Menopausal disorders (3 sources) Postmenopausal bleeding; Translations: [Postmenopausal bleeding] 10-16-2021 Chronic Osteoarthritis (4 sources) Arthritis; Translations: [Unspecified osteoarthritis, unspecified site] Onset: 01-20-2025 04-25-2022 Chronic Other connective tissue disease (2 sources) Presence of unspecified orthopedic joint implant; Translations: [Presence of unspecified orthopedic joint implant] Onset: 05-27-2018 Chronic Other connective tissue disease (3 sources) Swelling of lower limb; Translations: [Other specified soft tissue disorders] 10-16-2021 Episodic Other connective tissue disease (1 source) Pain in right finger(s); Translations: [Pain in right finger(s)] Onset: 01-20-2025 Episodic Other eye disorders (2 sources) Cataract extraction status, right eye; Translations: [Cataract extraction status, right eye] Onset: 06-02-2018 Episodic Other female genital disorders (2 sources) Vulvodynia; Translations: [Vulvodynia, unspecified] 06-04-2023 Chronic Other female genital disorders (1 source) Vulvodynia, unspecified; Translations: [Vulvodynia, unspecified] 06-04-2023 Chronic Other gastrointestinal disorders (3 sources) Heartburn; Translations: [Heartburn] 10-16-2021 Episodic Other nutritional; endocrine; and metabolic disorders (2 sources) Morbid (severe) obesity due to excess calories; Translations: [Morbid (severe) obesity due to excess calories] Onset: 06-02-2018 Chronic Other skin disorders (1 source) Localized swelling of right hand; Translations: [Localized swelling, mass and lump, right upper limb] 07-14-2024 Episodic Screening or history of mental health and substance abuse (2 sources) Personal history of nicotine dependence; Translations: [Personal history of nicotine dependence] Onset: 06-02-2018 Episodic Unclassified (2 sources) Body mass index (BMI) 45.0-49.9, adult; Translations: [Body mass index (BMI) 45.0-49.9, adult] Onset: 06-02-2018 Chronic Viral infection (3 sources) Disease caused by 2019-nCoV; Translations: [COVID-19] 11-16-2021 Episodic Past or Other Problems Problem Classification Problem Date Documented Da te Episodic/Chronic Other non-traumatic joint disorders (1 source) Pain in joints of right hand; Translations: [Pain in joints of right hand] Onset: 09-20-2024 Episodic Residual codes; unclassified (1 source) Pain, unspecified; Translations: [Pain, unspecified] Onset: 08-03-2024 Episodic Results Test Name Value Interpretation Reference Range Facility OT D/C of Non Returning Pton 01-19-2025 OT D/C of Non Returning Pt [facility] Occupational [facility] [address] [place] [address] [address] [place] [address] / REHABILITATION SERVICES DISCHARGE SUMMARY MR#: [id number] Acct: [id number] Name: ASYA BECK Rep #: [id number] : 1945 79 From: Keshia COLLINS/Nolan, CHT Referring Dr.: DAMI Leary Status: REG RCR Eval Date: Discharge Date: Patient Information Patient Information: ASYA BECK was seen in my office for initial evaluation on 09/13/24. The following Plan of Care was established for this patient: POC Established Initial Frequency: 1x/Week Initial Duration: 4 Weeks Plan: bracing joint protection pain management Anticipated Interventions Anticipated Interventions: A/AAROM/PROM, Strengthening, Triggerpoint Release, Modalities, Orthoses, Joint Protection/Energy Conservation, Ergonomic Education, Education re assistive Equipment, Education re Diagnosis and Home Program Last Seen Last Seen: This patient was last seen in our office 09/23/24. Pertinent comments regarding their Occupational therapy will appear below: pt was seen for 2 OT sessions- no further apt have been scheduled. Due to time lapse in services pt is d/c. At this point I will be discontinuing this patient from occupational therapy. I would be happy to see this patient again in the future if found appropriate by the physician. Thank you! KRISS Ward CHT 01/19/25 1345 CC: Dr. Jarad Camargo MD; DAMI Leary MK Signed Normal [facility] OT General Evaluationon 11-[address] [facility] Occupational [facility] [address] [place] [address] / REHABILITATION SERVICES INITIAL EVALUATION MR#: [id number] Acct: [id number] Name: ASYA BECK Rep #: [id number] : 1945 78 From: Keshia MONTERROSO CHT Referring Dr.: DAMI Leary Status: REG RCR Insurance: O MEDICARE Eval Date: SELF PAY INSURANCE Patient's Visit Information Visit Information Visit Information: ASYA BECK is a 78 year old F, referred to Occupational Therapy by DAMI Leary, with a diagnosis of right cmc OA. 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 pt states in Jun. she was driving and started getting pain and swelling pt states at night her hand was going numb- pt did get a thumb brace and this has decreased her numbness. pt states she went to [facility] and x-rays did say she was bone on bone. just not ready to do anything right now- pt states she would like to know what she can do to support her thumb and not be so painful when she is using her right hand. 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 Pain right wrist: Current Pain Intensity: 4 Pain Intensity Range: 4, 6 and 7 ROM Wrist: right 45/25 left 55/60 CMC: right 10 left 15 MP: right 40 left 40 IP: right 45 left 60 Palmar Abduction: right 40 left 40 Strength Break Out Man: right 20# left 50# Lateral Pinch: right 3# left 10# Tripod Pinch: right 2# left 10# Sensation Sensation Comments: tingling with positional Quick DASH-Disab of Arm,Shoulder Hand Quick DASH Score: 34.0900 Goals Goal:: pt will demo a increase in right television writer strength by 20# to increase pts ind. with ADLs by d.c Goal:: pt will report no pain greater than 2/10 with use of brace for ADLs by d.c Goal:: Pt will demo understanding of joint protection and ergonomics when performing BADLs and IADLs by d/c Pt will demo understanding of adaptive Equipment use to decrease stress on joints to allow pt to perform BADSL and IADLS at BENNIE level. Goal:: Pt will demo understanding of using supportive bracing 80% of workday/ADLS to decrease stress on tendon origin to allow healing and decrease pain by end of 2nd session. Rehabilitation General Assessment: pt demo with positive right thumb CMC OA - thumb instability and pain limiting pts functional use of right dominate hand with ADLs and IADLs. pt would benefit from skilled OT services 1x week for 4 weeks to ed. pt on joint protection , ad. eq. and supportive bracing to increase pts IND with home mtg and ADLs. pt demo understanding and agree to POC. Anticipated Interventions Anticipated Interventions: A/AAROM/PROM, Strengthening, Triggerpoint Release, Modalities, Orthoses, Joint Protection/Energy Conservation, Ergonomic Education, Education re assistive Equipment, Education re Diagnosis and Home Program Visit Plan Frequency: 1x/Week Duration: 4 Weeks General Plan: joint protection bracing nerve glide dx ad. eq. to avoid stress on thumb with ADLs TEXT: Thank you for the opportunity to evaluate your patient. For Medicare and Medicare HMO plans, please review the plan of care and approve it. It will need to be FAXED BACK to us at [phone] for Medicare purposes. Please let me know if there are questions or concerns regarding this plan of care. Physician Signature: Date: 09/13/24 1724 CC: Dr. Jarad Camargo MD; DAMI Leary MK Signed For Medicare only, by signing this I certify the plan of care. __ Physicians Signature Date Normal [facility] Hand Min 3 Viewson Hand Min 3 Views [facility] [address] [place] [address] Hand Min 3 Views MR#: [id number] Acct: [id number] Name: ASYA BECK Rep #: [id number] : 1945 F 78 From: Lindsey Ballard PCP: Dr. Jarad Camargo MD Status: REG CL Study: Hand Min 3 Views Date of Exam: 08/24/24 Exam# [id number] Ordering Dr: Edouard Bashir [id number] INDICATION: PAIN Pain in Right Hand around the joints EXAMINATION/TECHNIQUE: X-RAY - RIGHT XR Hand Min 3 Views 3 VIEWS COMPARISON: Prior study dated: 05/13/2024 FINDINGS: BONES: No fracture demonstrated. Mildly osteopenic. Joint space narrowing with subchondral sclerosis and subchondral cysts most pronounced at the first and second carpometacarpal joints, the carpal joints involving the scaphoid and the trapezium and trapezoid, and moderate similar changes at second metacarpophalangeal joint and distal interphalangeal joint, and the interphalangeal joint of the thumb . Changes are similar but appear progressed compared to the prior study. JOINTS: No dislocation. Minimal subluxation at the second digit DIP joint with minimal ulnar displacement. SOFT TISSUES: Unremarkable. RAD/Hand Min 3 Views IMPRESSION: Moderate arthropathy most pronounced at the carpometacarpal joints with interval progression compared to the prior. Minimal ulnar subluxation at second digit DIP joint. No evidence of fracture. Electronically Signed: Lindsey Saucedo MD at 14:52 EDT , CC: DAMI White; Dr. Jarad Camargo MD Special Service Officer: Signed Normal [facility] C-REACTIVE PROTEINon 024 CRP [Mass/Vol] 41.1 mg/L High <8.0 [facility] Comment on above: Performed By: #### 8 , 6949, 774 #### [facility] [address] Sewer Digger: Eduardo Napier MD SED RATE BY MODIFIED LIVERG RENon 08-19-2024 SED RATE BY MODIFIED WESTSUEREN 51 mm/h High < OR = 30 [facility] Comment on above: Performed By: #### 8 , 9679, 532 #### [facility] [address] [address] Sewer Digger: Eduardo Napier MD URIC ACIDon 08-19-2024 Urate [Mass/Vol] 6.0 mg/dL Normal 2.5-7.0 [facility] Comment on above: Result Comment: Ther apeutic target for gout patients: <6.0 mg/dL Performed By: #### 8 , 1547, 185 #### [facility] [address] [place] [address] Sewer Digger: Eduardo Napier MD FELISHA SCREEN, IFA, W/REFL TITE R AND PATTERNon 07-29-2024 FELISHA SCREEN, IFA Negative Normal NEGATIVE [facility] Comment on above: Result Comment: FELISHA IFA is a first line screen for detecting the presence of up to approximately 150 autoantibodies in various autoimmune diseases. A negative FELISHA IFA result suggests an FELISHA-associated autoimmune disease is not present at this time, but is not definitive. If there is high clinical suspicion for Sjogren's syndrome, testing for anti-SS-A/Ro antibody should be considered. Anti-Kaycee-1 antibody should be considered for clinically suspected inflammatory myopathies. AC-0: Negative International Consensus on FELISHA Patterns (https://doi.org/10.1515/ixca-1347-5642) For additional information, please refer to http://education.Piano Media/faq/OCZ528 (This link is being provided for informational/ educational purposes only.) Performed By: #### 4 418, 496, 4420, 6399, 905, 809 #### [facility] [address], [address] [place] [address] Sewer Digger: Eduardo Napier MD C-REACTIVE PROTEINon 024 CRP [Mass/Vol] 14.1 mg/L High <8.0 [facility] Comment on above: Performed By: #### 4 418, 496, 4420, 6399, 905, 809 #### [facility] [address], [address] [place] [address] Sewer Digger: Eduardo Napier MD CBC (INCLUDES DIFF/PLT)on Basophils (Bld) [#/Vol] 0.036 10*3/uL Normal 0-200 [facility] Comment on above: Performed By: #### 4 418, 496, 4420, 6399, 905, 809 #### [facility] [address], [address] [place] [address] Sewer Digger: Eduardo Napier MD Basophils/100 WBC (Bld) 0.4 % Normal [facility] Comment on above: Performed By: #### 4 418, 496, 4420, 6399, 905, 809 #### [facility] [place] [address] Sewer Digger: Eduardo Napier MD Eosinophils (Bld) [#/Vol] 0.144 10*3/uL Normal 15-500 [facility] Comment on above: Performed By: #### 4 418, 496, 4420, 6399, 905, 809 #### [facility] [place] [address] Sewer Digger: Eduardo Napier MD Eosinophils/100 WBC (Bld) 1.6 % Normal [facility] Comment on above: Performed By: #### 4 418, 496, 4420, 6399, 905, 809 #### [facility] [place] [address] Sewer Digger: Eduardo Napier MD Erythrocyte distribution width (RBC) [Ratio] 14.0 % Normal 11.0-15.0 [facility] Comment on above: Performed By: #### 4 418, 496, 4420, 6399, 905, 809 #### [facility] [place] [address] Sewer Digger: Eduardo Napier MD Hematocrit (Bld) [Volume fraction] 41.0 % Normal 35.0-45.0 [facility] Comment on above: Performed By: #### 4 418, 496, 4420, 6399, 905, 809 #### [facility] [place] [address] Sewer Digger: Eduardo Napier MD Hemoglobin (Bld) [Mass/Vol] 13.6 g/dL Normal 11.7-15.5 [facility] Comment on above: Performed By: #### 4 418, 496, 4420, 6399, 905, 809 #### [facility] [place] [address] Sewer Digger: Eduardo Napier MD Lymphocytes (Bld) [#/Vol] 2.457 10*3/uL Normal 850-3900 [facility] Comment on above: Performed By: #### 4 418, 496, 4420, 6399, 905, 809 #### [facility] [place] [address] Sewer Digger: Eduardo Napier MD Lymphocytes/100 WBC (Bld) 27.3 % Normal [facility] Comment on above: Performed By: #### 4 418, 496, 4420, 6399, 905, 809 #### [facility] [place] [address] Sewer Digger: Eduardo Napier MD MCH (RBC) [Entitic mass] 28.0 pg Normal 27.0-33.0 [facility] Comment on above: Performed By: #### 4 418, 496, 4420, 6399, 905, 809 #### [facility] [place] [address] Sewer Digger: Eduardo Napier MD MCHC (RBC) [Mass/Vol] 33.2 g/dL Normal 32.0-36.0 [facility] Comment on above: Performed By: #### 4 418, 496, 4420, 6399, 905, 809 #### [facility] [place] [address] Sewer Digger: Eduardo Napier MD MCV (RBC) [Entitic vol] 84.5 fL Normal 80.0-100.0 [facility] Comment on above: Performed By: #### 4 418, 496, 4420, 6399, 905, 809 #### [facility] [place] [address] Sewer Digger: Eduardo Napier MD Monocytes (Bld) [#/Vol] 0.603 10*3/uL Normal 200-950 [facility] Comment on above: Performed By: #### 4 418, 496, 4420, 6399, 905, 809 #### [facility] [place] [address] Sewer Digger: Eduardo Napier MD Monocytes/100 WBC (Bld) 6.7 % Normal [facility] Comment on above: Performed By: #### 4 418, 496, 4420, 6399, 905, 809 #### [facility] [place] [address] Sewer Digger: Eduardo Napier MD Neutrophils (Bld) [#/Vol] 5.76 10*3/uL Normal 0239-9236 [facility] Comment on above: Performed By: #### 4 418, 496, 4420, 6399, 905, 809 #### [facility] [place] [address] Sewer Digger: Eduardo Napier MD Neutrophils/100 WBC (Bld) 64 % Normal [facility] Comment on above: Performed By: #### 4 418, 496, 4420, 6399, 905, 809 #### [facility] [place] [address] Sewer Digger: Eduardo Napier MD Platelet mean volume (Bld) [Entitic vol] 10.3 fL Normal 7.5-12.5 [facility] Comment on above: Performed By: #### 4 418, 496, 4420, 6399, 905, 809 #### [facility] [place] [address] Sewer Digger: Eduardo Napier MD Platelets (Bld) [#/Vol] 378 10*3/uL Normal 140-400 [facility] Comment on above: Performed By: #### 4 418, 496, 4420, 6399, 905, 809 #### [facility] [place] [address] Sewer Digger: Eduardo Napier MD RBC (Bld) [#/Vol] 4.85 10*6/uL Normal 3.80-5.10 [facility] Comment on above: Performed By: #### 4 418, 496, 4420, 6399, 905, 809 #### [facility] [address], [address] [place] [address] Sewer Digger: Eduardo Napier MD WBC (Bld) [#/Vol] 9.0 10*3/uL Normal 3.8-10.8 [facility] Comment on above: Performed By: #### 4 418, 496, 4420, 6399, 905, 809 #### [facility] [address], [address] Sewer Digger: Eduardo Napier MD HEMOGLOBIN A1con 07-29-2024 HEMOGLOBIN A1c 6.2 % of total Hgb High <5.7 [facility] Comment on above: Result Comment: For someone without known diabetes, a hemoglobin A1c value between 5.7% and 6.4% is consistent with prediabetes and should be confirmed with a follow-up test. For someone with known diabetes, a value <7% indicates that their diabetes is well controlled. A1c targets should be individualized based on duration of diabetes, age, comorbid conditions, and other considerations. This assay result is consistent with an increased risk of diabetes. Currently, no consensus exists regarding use of hemoglobin A1c for diagnosis of diabetes for children. This test was performed on the Arsalan eh c503 platform. Effective 10/27/23, a change in test platforms from the [employer]azo Sign Language Teacher to the Arsalan eh c503 may have shifted HbA1c results compared to historical results. Based on laboratory validation testing conducted at [facility], the Arsalan platform relative to the Suazo platform had an average increase in HbA1c value of < or = 0.3%. This difference is within accepted variability established by the National Glycohemoglobin Standardization Program. Note that not all individuals will have had a shift in their results and direct comparisons between historical and current results for testing conducted on different platforms is not recommended. Performed By: #### 4 418, 496, 4420, 6399, 905, 809 #### [facility] [address] [place] [address], [address] [place] [address] Sewer Digger: Eduardo Napier MD RHEUMATOID FACTORon 07-29-20 RHEUMATOID FACTOR <10 Normal <14 [facility] Comment on above: Performed By: #### 4 418, 496, 4420, 6399, 905, 809 #### [facility] [address], [address] [place], [place] [address] Sewer Digger: Eduardo Napier MD SED RATE BY MODIFIED WESTERG RENon 07-29-2024 SED RATE BY MODIFIED WESTERGREN 55 mm/h High < OR = 30 [facility] Comment on above: Performed By: #### 4 418, 496, 4420, 6399, 905, 809 #### [facility] [address] [place] [address], [address] [place] [phone] Sewer Digger: Eduardo Napier MD URIC ACIDon 07-29-2024 Urate [Mass/Vol] 6.3 mg/dL Normal 2.5-7.0 [facility] Comment on above: Result Comment: Ther apeutic target for gout patients: <6.0 mg/dL Performed By: #### 4 418, 496, 4420, 6399, 905, 809 #### [facility] [address], [address] [place] [phone] Sewer Digger: Eduardo Napier MD Urgent Care Visit Reporton 0 07-27-2024 Urgent Care Visit Report [facility] [address] [facility], [address] [place] [id number] OFFICE VISIT Date of Service: 07/27/24 MR#: [id number] Acct: [id number] Name: ASYA BECK Rep #: [id number] : 1945 Provider: DAMI Mason Age/Sex: 78/F Location: [facility] Status: Signed Intake Vital Signs 07/14/24 10:19 07/27/24 09:45 Height 5 ft 5 in 5 ft 4 in Weight: 256 lb 2 oz 260 lb BMI 42.6 44.6 BP 148/82 H 148/96 H Blood Pressure Location Rt brachial Lt brachial Position Sitting Sitting Respiration 20 H 16 Pulse 96 87 Pulse Source NIBP Monitor Temp 97.7 F L 97.6 F L Temp Source Temporal Temporal Pulse Oximetry (%) 97 97 Oxygen Delivery Method room air room air Intake Visit Reasons: SWOLLEN R THUMB AREA Chief Complaint: right hand swelling Country Director Required: No Accompanied by: Self Is patient in pain?: Yes Allergies No Known Allergies Allergy (Verified 07/27/24 09:47) Medications ???Medication ???Instructions ???Recorded ???Confirmed ???Type amlodipine 10 mg tablet 10 mg PO DAILY 10/16/21 07/27/24 History furosemide 80 mg tablet 160 mg PO DAILY 10/16/21 07/27/24 History losartan 50 mg tablet 100 mg PO DAILY 10/16/21 07/27/24 History pantoprazole 40 mg tablet,delayed 40 mg PO DAILY 10/16/21 07/27/24 History release potassium chloride 10 mEq 20 meq PO DAILY 10/16/21 07/27/24 History capsule,extended release acetaminophen 650 mg 650 mg PO Q8H 12/03/22 07/27/24 History tablet,extended release (Tylenol Arthritis Pain) omega-3 fatty acids 1,000 mg 1,000 mg PO DAILY 12/03/22 07/27/24 History capsule vitamin A-vitamin C-vit E-min 1 tab PO DAILY 12/03/22 07/27/24 History tablet (Vision tablet) lidocaine 5 % topical ointment 1 applic topical TID PRN pain #30 06/16/23 07/27/24 Rx grams indomethacin 50 mg capsule 50 mg PO TID #21 caps 07/27/24 07/27/24 Rx Have you fallen in the past year?: No PFSH Medical History Localized swelling on right hand Gout attack H/O cancer of uterus Bilateral plantar fasciitis Hypertension Surgical History S/P breast biopsy S/P carpal tunnel release S/P cataract surgery S/P total hysterectomy Status post left hip replacement History of right hip replacement Status post bilateral knee replacements Family History Mother Diabetes CVA (cerebral vascular accident) Social History Smoking Status: Former smoker alcohol intake: current alcohol intake frequency: holidays/special occasions only substance use type: does not use caffeine: Yes what type of physical activity do you participate in: none seatbelt use: always do you feel safe at home: Yes additional social history: HPI HPI Chief Complaint: right hand swelling Details: ASYA BECK, is a 78 F who presents to the office today for recurring approximately 48-hour history of progressively worsening right thumb, dorsal-radial hand warmth, and edematous swelling of unknown etiology. No history of trauma to the same. No nxqo-yjj-oikrrnk products taken to assist. Thjtf-qqyt-sxdzfvqd. Pain to same is aggravated touch with any range of motion. No other associated symptoms and no other alleviating/aggravating factors. PMH significant for history of gout which is typically affected her right lower extremity only in the past; previously [facility]/ [facility] which resolved symptoms then. ROS Const Constitutional: No other (As above) Exam Const General: cooperative, healthy appearing and no acute distress Orientation: alert and awake Resp Effort Inspection: normal respiratory effort and able to speak in complete sentences Cardio Rate: regular rate Pulses: radial pulses present Skin General: no rashes or lesions noted Neuro General: patient alert and patient awake Cognition: normal cognition Speech: speech normal Extrem General: capillary refill normal and normal exam except as noted (x R thumb/dorsal-radial hand warmth, swelling, tender to touch) Psych Appearance: grossly normal Mental Status: mental status grossly normal Mood: congruent mood Affect: normal affect Speech and Movement: speech and movement normal Attitude: cooperative Diagnoses Localized swelling on right hand R22.31 Assessment and Plan Assessment and Plan (1) Localized swelling on right hand: Status: Acute Plan: - and right thumb/radial hand; consider gout exacerbation Right hand/wrist radiographs taken today reveal no acute osseous pathology per my review, pending radiologist interpretation time patient di (more content not included)... Normal [facility] Hand Min 3 Viewson 4 Hand Min 3 Views [facility] Imaging Services [address] [place], [place] [address] Hand Min 3 Views MR#: [id number] Acct: [id number] Name: ASYA BECK Rep #: [id number] : 1945 F 78 From: Yon ames MD PCP: Dr. Jarad Camargo MD Status: REG CLI Study: Hand Min 3 Views Date of Exam: 07/14/24 Exam# [id number] Ordering Dr: Raza Sotomayor [id number] STUDY: X-RAY - RIGHT HAND REASON FOR EXAM: Female, 78 years old. Pain, swelling TECHNIQUE: 3 view(s) of the hand. COMPARISON: None. FINDINGS: Normal radiocarpal articulation. Normal distal radioulnar joint. Normal visualized carpal bones. Normal carpal articulations There is degenerative arthrosis of the carpometacarpal (CMC) articulation of the thumb. Normal second through fifth carpometacarpal joints. Normal metacarpi. Normal metacarpophalangeal joint of the thumb. Normal interphalangeal joint of the thumb. Normal proximal and distal phalanges of the thumb. Normal metacarpophalangeal joints of the second through fifth fingers. There is diffuse articular joint space narrowing of the proximal and distal interphalangeal joints of the second through fifth fingers, but without erosive changes or periarticular soft tissue swelling. Normal phalanges of the second through fifth fingers. Soft tissue swelling. RAD/Hand Min 3 Views IMPRESSION: Soft tissue swelling. Interphalangeal joint arthrosis. Electronically Signed: Yon Louis MD at 11:24 EDT Reading Location ID and State: [address] [place] [address] , Service support , CC: Dr. Jarad Camargo MD; DAMI Mason Special Service Officer: Signed Normal [facility] Urgent Care Visit Reporton 0 07-14-2024 Urgent Care Visit Report [facility] [place] [address], [address] [place], [place] [id number] OFFICE VISIT Date of Service: 07/14/24 MR#: [id number] Acct: [id number] Name: ASYA BECK Rep #: [id number] : 1945 Provider: DAMI Mason Age/Sex: 78/F Location: [facility] Status: Signed Intake Vital Signs 06/04/23 10:25 07/14/24 10:19 Height 5 ft 5 in 5 ft 5 in Weight: 256 lb 2 oz BMI 42.6 BP 148/82 H Blood Pressure Location Rt brachial Position Sitting Respiration 20 H Pulse 96 Pulse Source NIBP Temp 97.7 F L Temp Source Temporal Pulse Oximetry (%) 97 Oxygen Delivery Method room air Intake Visit Reasons: R WRIST/HAND SWELLING/PAIN/NO KNW INJ Chief Complaint: right hand swelling Country Director Required: No Is patient in pain?: Yes Allergies No Known Allergies Allergy (Verified 07/14/24 10:20) Is last menstrual period known: No Post menopausal: Yes Patient : No Have you fallen in the past year?: No Nurse's Note: right hand swelling/pain x 5 days. pain extends into wrist and forearm. denies injury/insect bite or sting. hx osteoarthritis but denies RA. [facility] Medical History (Updated 07/14/24 @ 11:50 by DAMI Hughes) Localized swelling on right hand Gout attack H/O cancer of uterus Bilateral plantar fasciitis Hypertension Surgical History S/P breast biopsy S/P carpal tunnel release S/P cataract surgery S/P total hysterectomy Status post left hip replacement History of right hip replacement Status post bilateral knee replacements Family History Mother Diabetes CVA (cerebral vascular accident) Social History Smoking Status: Former smoker alcohol intake: current alcohol intake frequency: holidays/special occasions only substance use type: does not use caffeine: Yes what type of physical activity do you participate in: none seatbelt use: always do you feel safe at home: Yes additional social history: HPI HPI Chief Complaint: right hand swelling Details: ASYA BECK is a 78 F who presents to the office today for initial evaluation approximately 48- hour history of progressively worsening right thumb, dorsal hand/wrist erythema, warmth, and edematous swelling of unknown etiology. No history of trauma to the same. No rees-bab-rpqxeed products taken to assist. Cdeej-qwtk-omjtbzuh. Pain to same is aggravated touch with any range of motion. No other associated symptoms and no other alleviating/aggravating factors. PMH significant for history of gout which is typically affected her right lower extremity only in the past ROS Const Constitutional: No other (As above) Exam Const General: cooperative, healthy appearing and no acute distress Orientation: alert and awake Resp Effort Inspection: normal respiratory effort and able to speak in complete sentences Cardio Rate: regular rate Pulses: radial pulses present Skin General: no rashes or lesions noted Neuro General: patient alert and patient awake Cognition: normal cognition Speech: speech normal Extrem General: capillary refill normal and normal exam except as noted (x R thumb/dorsal hand-wrist erythema, warmth, swelling, tender to touch) Psych Appearance: grossly normal Mental Status: mental status grossly normal Mood: congruent mood Affect: normal affect Speech and Movement: speech and movement normal Attitude: cooperative Coding Level of Care Code Off vis,new,level 4 Diagnoses Localized swelling on right hand R22.31 Assessment and Plan Assessment and Plan (1) Localized swelling on right hand: Status: Acute Plan: - and right thumb/ wrist; consider gout exacerbation Right hand/wrist radiographs taken today reveal no acute osseous pathology per my review, pending radiologist interpretation time patient discharged. Supportive measures as instructed today. Indomethacin as prescribed today. Follow-up with PCP in 3 to 5 days should symptoms not improve, ED sooner should symptoms only worsen or any other concerns develop. Patient states acknowledging understanding all the above. This note was generated with [employer] dictation software. It may contain incorrect words, spelling, and punctuation that were not noted in checking the note before signing. Orders: Orders Hand Min 3 Views Today R52 - Pain, unspecified Wrist min 3 Views Today R52 - Pain, unspecified Medications: New indomethacin administer with food or milk 50 mg PO TID 21 caps 0RF Clinical Quality Measures Falls Risk Screening/Assistive Devices Have you fallen in the past year?: No 07/14/24 1152 Date (more content not included)... Normal [facility] Wrist min 3 Viewson 07-14-20 Wrist min 3 Views [facility] Imaging Services [address] [place], [place] [address] Wrist min 3 Views MR#: [id number] Acct: [id number] Name: ASYA BECK Rep #: [id number] : 1945 F 78 From: Yon ames MD PCP: Dr. Jarad Camargo MD Status: REG CLI Study: Wrist min 3 Views Date of Exam: 07/14/24 Exam# [id number] Ordering Dr: Raza Sotomayor [id number] STUDY: X-RAY - RIGHT WRIST REASON FOR EXAM: Female, 78 years old. Pain, swelling TECHNIQUE: 3 view(s) of the wrist were obtained. COMPARISON: None. FINDINGS: Normal visualized distal radius and ulna. Normal radiocarpal articulation. Normal distal radioulnar articulation. Normal carpal bones. Normal carpal articulations. There is degenerative arthrosis of the carpometacarpal articulation of the thumb. Normal second through fifth carpometacarpal articulations. Normal visualized metacarpal bones. Soft tissue swelling. RAD/Wrist min 3 Views IMPRESSION: Soft tissue swelling. Arthrosis of the first carpometacarpal joint. Electronically Signed: Yon Louis MD at 11:25 EDT , CC: Dr. Jarad Camargo MD; DAMI Mason Special Service Officer: Signed Normal [facility] ALBUMIN, RANDOM URINE W/CREA TININEon 04-15-2024 ALBUMIN, URINE 0.3 mg/dL Normal See Note: [facility] Comment on above: Result Comment: Refe rence Range: Reference Range Not established Performed By: #### 8 09, 4420, 905 #### [facility] [place] [address] Sewer Digger: Eduardo Napier MD ALBUMIN/CREATININE RATIO, RANDOM URINE 6 mg/g creat Normal <30 [facility] Comment on above: Result Comment: The ADA defines abnormalities in albumin excretion as follows: Albuminuria Category Result (mg/g creatinine) Normal to Mildly increased <30 Moderately increased 30-299 Severely increased > OR = 300 The ADA recommends that at least two of three specimens collected within a 3-6 month period be abnormal before considering a patient to be within a diagnostic category. Performed By: #### 8 09, 4420, 905 #### [facility] [place] [address] Sewer Digger: Eduardo Napier MD Creatinine (U) [Mass/Vol] 53 mg/dL Normal 20-275 [facility] Comment on above: Performed By: #### 8 , 44, 905 #### [facility] [place] [address] Sewer Digger: Eduardo Napier MD [facility] 04-15-2024 Albumin [Mass/Vol] 3.9 g/dL Normal 3.6-5.1 [facility] Comment on above: Performed By: #### 8 , 4420, 905 #### [facility] [place] [address] Sewer Digger: Eduardo Napier MD Albumin/Globulin [Mass ratio] 1.6 {ratio} Normal 1.0-2.5 [facility] Comment on above: Performed By: #### 8 , 4420, 905 #### [facility] [place] [address] Sewer Digger: Eduardo Napier MD ALP [Catalytic activity/Vol] 91 U/L Normal 37-153 [facility] Comment on above: Performed By: #### 8 , 4420, 905 #### [facility] of [address] [phone] Sewer Digger: Eduardo Napier MD ALT [Catalytic activity/Vol] 10 U/L Normal 6-29 [facility] Comment on above: Performed By: #### 8 09, 44, 905 #### [facility] of [address], [address] [place] [address] Sewer Digger: Eduardo Napier MD AST [Catalytic activity/Vol] 13 U/L Normal 10-35 [facility] Comment on above: Performed By: #### 8 09, 44, 905 #### [facility] of [place] [address] Sewer Digger: Eduardo Napier MD Bilirubin [Mass/Vol] 0.5 mg/dL Normal 0.2-1.2 [facility] Comment on above: Performed By: #### 8 , 44, 905 #### [facility] of [place] [address] Sewer Digger: Eduardo Napier MD BUN/CREATININE RATIO SEE NOTE: Normal 6-22 [facility] Comment on above: Result Comment: Not Reported: BUN and Creatinine are within reference range. Performed By: #### 8 , 44, 905 #### [facility] of [place] [address] Sewer Digger: Eduardo Napier MD Calcium [Mass/Vol] 8.8 mg/dL Normal 8.6-10.4 [facility] Comment on above: Performed By: #### 8 , 44, 905 #### [facility] of [place] [address] Sewer Digger: Eduardo Napier MD Chloride [Moles/Vol] 103 mmol/L Normal 98-110 [facility] Comment on above: Performed By: #### 8 , 4420, 905 #### [facility] [place] [address] Sewer Digger: Eduardo Napier MD CO2 [Moles/Vol] 27 mmol/L Normal 20-32 [facility] Comment on above: Performed By: #### 8 , 44, 905 #### [facility] [place] [address] Sewer Digger: Eduardo Napier MD Creatinine [Mass/Vol] 0.85 mg/dL Normal 0.60-1.00 [facility] Comment on above: Performed By: #### 8 , 44, 905 #### [facility] [place] [address] Sewer Digger: Eduardo Napier MD GFR/1.73 sq M.predicted among non-blacks MDRD (S/P/Bld) [Vol rate/Area] 71 mL/min/{1.73_m2} Normal > OR = 60 [facility] Comment on above: Performed By: #### 8 , 44, 905 #### [facility] [place] [address] Sewer Digger: Eduardo Napier MD Globulin (S) [Mass/Vol] 2.5 g/dL Normal 1.9-3.7 [facility] Comment on above: Performed By: #### 8 , 44, 905 #### [facility] [place] [address] Sewer Digger: Eduardo Napier MD Glucose [Mass/Vol] 110 mg/dL High 65-99 [facility] Comment on above: Result Comment: Fasting reference interval For someone without known diabetes, a glucose value between 100 and 125 mg/dL is consistent with prediabetes and should be confirmed with a follow-up test. Performed By: #### 8 , 44, 905 #### [facility] [place] [address] Sewer Digger: Eduardo Napier MD Potassium [Moles/Vol] 3.5 mmol/L Normal 3.5-5.3 [facility] Comment on above: Performed By: #### 8 , 44, 905 #### [facility] [place] [id number] Sewer Digger: Eduardo Napier MD Protein [Mass/Vol] 6.4 g/dL Normal 6.1-8.1 [facility] Comment on above: Performed By: #### 8 , 44, 905 #### [facility] of [place] [address] Sewer Digger: Eduardo Napier MD Sodium [Moles/Vol] 142 mmol/L Normal 135-146 [facility] Comment on above: Performed By: #### Kirt , 44, 905 #### [facility] of [address], [address] [place] [address] Sewer Digger: Eduardo Napier MD Urea nitrogen [Mass/Vol] 15 mg/dL Normal 7-25 [facility] Comment on above: Performed By: #### 8 , 44, 905 #### [facility] of [place] [address] Sewer Digger: Eduardo Napier MD CBC (INCLUDES DIFF/PLT)on Basophils (Bld) [#/Vol] 0.031 10*3/uL Normal 0-200 [facility] Comment on above: Performed By: #### 8 , 44, 905 #### [facility] of [place] [address] Sewer Digger: Eduardo Napier MD Basophils/100 WBC (Bld) 0.4 % Normal [facility] Comment on above: Performed By: #### Kirt , 44, 905 #### [facility] of [place] [address] Sewer Digger: Eduardo Napier MD Eosinophils (Bld) [#/Vol] 0.169 10*3/uL Normal 15-500 [facility] Comment on above: Performed By: #### 8 , 44, 905 #### [facility] of [place] [address] Sewer Digger: Eduardo Napier MD Eosinophils/100 WBC (Bld) 2.2 % Normal [facility] Comment on above: Performed By: #### 8 , 44, 905 #### [facility] of [place] [address] Sewer Digger: Eduardo Napier MD Erythrocyte distribution width (RBC) [Ratio] 14.8 % Normal 11.0-15.0 [facility] Comment on above: Performed By: #### 8 , 44, 905 #### [facility] of [place] [address] Sewer Digger: Eduardo Napier MD Hematocrit (Bld) [Volume fraction] 39.1 % Normal 35.0-45.0 [facility] Comment on above: Performed By: #### 8 , 4419, 905 #### [facility] [place] [address] Sewer Digger: Eduardo Napier MD Hemoglobin (Bld) [Mass/Vol] 12.6 g/dL Normal 11.7-15.5 [facility] Comment on above: Performed By: #### 8 , 4419, 905 #### [facility] [place] [address] Sewer Digger: Eduardo Napier MD Lymphocytes (Bld) [#/Vol] 1.964 10*3/uL Normal 850-3900 [facility] Comment on above: Performed By: #### 8 , 44, 905 #### [facility] of [place] [address] Sewer Digger: Eduardo Napier MD Lymphocytes/100 WBC (Bld) 25.5 % Normal [facility] Comment on above: Performed By: #### 8 , 44, 905 #### [facility] of [place] [address] Sewer Digger: Eduardo Napier MD MCH (RBC) [Entitic mass] 27.6 pg Normal 27.0-33.0 [facility] Comment on above: Performed By: #### 8 , 44, 905 #### [facility] of [address], [address] [place] [address] Sewer Digger: Eduardo Napier MD MCHC (RBC) [Mass/Vol] 32.2 g/dL Normal 32.0-36.0 [facility] Comment on above: Performed By: #### 8 , 44, 905 #### [facility] of [address], [address] [place] [address] Sewer Digger: Eduardo Napier MD MCV (RBC) [Entitic vol] 85.7 fL Normal 80.0-100.0 [facility] Comment on above: Performed By: #### 8 , 44, 905 #### [facility] of [place] [address] Sewer Digger: Eduardo Napier MD Monocytes (Bld) [#/Vol] 0.501 10*3/uL Normal 200-950 [facility] Comment on above: Performed By: #### 8 , 44, 905 #### [facility] of [place] [address] Sewer Digger: Eduardo Napier MD Monocytes/100 WBC (Bld) 6.5 % Normal [facility] Comment on above: Performed By: #### 8 , 44, 905 #### [facility] of [place] [address] Sewer Digger: Eduardo Napier MD Neutrophils (Bld) [#/Vol] 5.036 10*3/uL Normal 5609-3454 [facility] Comment on above: Performed By: #### 8 , 44, 905 #### [facility] of [place] [address] Sewer Digger: Eduardo Napier MD Neutrophils/100 WBC (Bld) 65.4 % Normal [facility] Comment on above: Performed By: #### 8 , 44, 905 #### [facility] [place] [address] Sewer Digger: Eduardo Napier MD Platelet mean volume (Bld) [Entitic vol] 10.5 fL Normal 7.5-12.5 [facility] Comment on above: Performed By: #### 8 09, 4420, 905 #### [facility] of [place] [address] Sewer Digger: Eduardo Napier MD Platelets (Bld) [#/Vol] 329 10*3/uL Normal 140-400 [facility] Comment on above: Performed By: #### 8 09, 44, 905 #### [facility] [place] [address] Sewer Digger: Eduardo Napier MD RBC (Bld) [#/Vol] 4.56 10*6/uL Normal 3.80-5.10 [facility] Comment on above: Performed By: #### 8 , 44, 905 #### [facility] [place] [address] Sewer Digger: Eduardo Napier MD WBC (Bld) [#/Vol] 7.7 10*3/uL Normal 3.8-10.8 [facility] Comment on above: Performed By: #### 8 09, 44, 905 #### [facility] [place] [address] Sewer Digger: Eduardo Napier MD [facility] 04-08-2024 Albumin [Mass/Vol] 3.9 g/dL Normal 3.6-5.1 [facility] Comment on above: Performed By: #### 8 09, 4420, 905 #### [facility] of [place] [address] Sewer Digger: Eduardo Napier MD Albumin/Globulin [Mass ratio] 1.4 {ratio} Normal 1.0-2.5 [facility] Comment on above: Performed By: #### 8 , 44, 905 #### [facility] [place] [address] Sewer Digger: Eduardo Napier MD ALP [Catalytic activity/Vol] 95 U/L Normal 37-153 [facility] Comment on above: Performed By: #### 8 09, 4477, 905 #### [facility] [place] [address] Sewer Digger: Eduardo Napier MD ALT [Catalytic activity/Vol] 12 U/L Normal 6-29 [facility] Comment on above: Performed By: #### 8 , 44, 905 #### [facility] [place] [address] Sewer Digger: Eduardo Napier MD AST [Catalytic activity/Vol] 14 U/L Normal 10-35 [facility] Comment on above: Performed By: #### 8 , 44, 905 #### [facility] [place] [address] Sewer Digger: Eduardo Napier MD Bilirubin [Mass/Vol] 0.5 mg/dL Normal 0.2-1.2 [facility] Comment on above: Performed By: #### 8 , 44, 905 #### [facility] [place] [address] Sewer Digger: Eduardo Napier MD BUN/CREATININE RATIO SEE NOTE: Normal 6-22 [facility] Comment on above: Result Comment: Not Reported: BUN and Creatinine are within reference range. Performed By: #### 8 , 1928, 905 #### [facility] [place] [address] Sewer Digger: Eduardo Napier MD Calcium [Mass/Vol] 9.1 mg/dL Normal 8.6-10.4 [facility] Comment on above: Performed By: #### 8 , 4476, 905 #### [facility] [place] [address] Sewer Digger: Eduardo Napier MD Chloride [Moles/Vol] 107 mmol/L Normal 98-110 [facility] Comment on above: Performed By: #### 8 , 44, 905 #### [facility] [address], [address] [place] [address] Sewer Digger: Eduardo Napier MD CO2 [Moles/Vol] 22 mmol/L Normal 20-32 [facility] Comment on above: Performed By: #### 8 , 44, 905 #### [facility] [place] [address] Sewer Digger: Eduardo Napier MD Creatinine [Mass/Vol] 0.94 mg/dL Normal 0.60-1.00 [facility] Comment on above: Performed By: #### 8 , 44, 905 #### [facility] [place] [address] Sewer Digger: Eduardo Napier MD GFR/1.73 sq M.predicted among non-blacks MDRD (S/P/Bld) [Vol rate/Area] 63 mL/min/{1.73_m2} Normal > OR = 60 [facility] Comment on above: Performed By: #### 8 , 44, 905 #### [facility] [place] [address] Sewer Digger: Eduardo Napier MD Globulin (S) [Mass/Vol] 2.8 g/dL Normal 1.9-3.7 [facility] Comment on above: Performed By: #### 8 , 44, 905 #### [facility] [place] [address] Sewer Digger: Eduardo Napier MD Glucose [Mass/Vol] 119 mg/dL High 65-99 [facility] Comment on above: Result Comment: Fasting reference interval For someone without known diabetes, a glucose value between 100 and 125 mg/dL is consistent with prediabetes and should be confirmed with a follow-up test. Performed By: #### 8 , 44, 905 #### [facility] [place] [address] Sewer Digger: Eduardo Napier MD Potassium [Moles/Vol] 4.0 mmol/L Normal 3.5-5.3 [facility] Comment on above: Performed By: #### 8 09, 4420, 905 #### [facility] [address], [address] [place] [address] Sewer Digger: Eduardo Napier MD Protein [Mass/Vol] 6.7 g/dL Normal 6.1-8.1 [facility] Comment on above: Performed By: #### 8 09, 4420, 905 #### [facility] [address], [address] [place] [address] Sewer Digger: Eduardo Napier MD Sodium [Moles/Vol] 142 mmol/L Normal 135-146 [facility] Comment on above: Performed By: #### 8 09, 4420, 905 #### [facility] [place] [address] Sewer Digger: Eduardo Napier MD Urea nitrogen [Mass/Vol] 19 mg/dL Normal 7-25 [facility] Comment on above: Performed By: #### 8 , 4420, 905 #### [facility] [place] [address] Sewer Digger: Eduardo Napier MD HEMOGLOBIN A1con 04-08-2024 HEMOGLOBIN A1c 6.3 % of total Hgb High <5.7 [facility] Comment on above: Result Comment: For someone without known diabetes, a hemoglobin A1c value between 5.7% and 6.4% is consistent with prediabetes and should be confirmed with a follow-up test. For someone with known diabetes, a value <7% indicates that their diabetes is well controlled. A1c targets should be individualized based on duration of diabetes, age, comorbid conditions, and other considerations. This assay result is consistent with an increased risk of diabetes. Currently, no consensus exists regarding use of hemoglobin A1c for diagnosis of diabetes for children. This test was performed on the Arsalan eh c503 platform. Effective 10/27/23, a change in test platforms from the Suazo Sign Language Teacher to the Arsalan eh c503 may have shifted HbA1c results compared to historical results. Based on laboratory validation testing conducted at [facility], the Arsalan platform relative to the Suazo platform had an average increase in HbA1c value of < or = 0.3%. This difference is within accepted variability established by the National Glycohemoglobin Standardization Program. Note that not all individuals will have had a shift in their results and direct comparisons between historical and current results for testing conducted on different platforms is not recommended. Performed By: #### 8 09, 4420, 905 #### [facility] [address], [address] [place] [address] Sewer Digger: Eduardo Napier MD LIPID PANEL, [facility] 05-3 Cholesterol [Mass/Vol] 237 mg/dL High <200 [facility] Comment on above: Order Comment: FASTI NG:YESFASTING: YES Performed By: #### 8 09, 4420, 905 #### [facility] [address], [address] [place] [address] Sewer Digger: Eduardo Napier MD Cholesterol in HDL [Mass/Vol] 61 mg/dL Normal > OR = 50 [facility] Comment on above: Order Comment: FASTI NG:YESFASTING: YES Performed By: #### 8 09, 44, 905 #### [facility] [place] [address] Sewer Digger: Eduardo Napier MD Cholesterol in LDL [Mass/Vol] 142 mg/dL High [facility] Comment on above: Order Comment: FASTI NG:YESFASTING: YES Result Comment: Refe rence range: <100 Desirable range <100 mg/dL for primary prevention; <70 mg/dL for patients with CHD or diabetic patients with > or = 2 CHD risk factors. LDL-C is now calculated using the Dutch calculation, which is a validated novel method providing better accuracy than the Friedewald equation in the estimation of LDL-C. Jesus [place] et al. SHEREE. 2013;310(19): 6092-3040 (http://education.Raise Your Flag.Soflow/faq/ANW679) Performed By: #### 8 09, 44, 905 #### [facility] [place] [id number] Sewer Digger: Eduardo Napier MD Cholesterol.total/ Cholesterol in HDL [Mass ratio] 3.9 {ratio} Normal <5.0 [facility] Comment on above: Order Comment: FASTI NG:YESFASTING: YES Performed By: #### 8 09, 4435, 905 #### [facility] [address], [address] [place] [address] Sewer Digger: Eduardo Napier MD NON HDL CHOLESTEROL 176 mg/dL (calc) High <130 [facility] Comment on above: Order Comment: FASTI NG:YESFASTING: YES Result Comment: For patients with diabetes plus 1 major ASCVD risk factor, treating to a non-HDL-C goal of <100 mg/dL (LDL-C of <70 mg/dL) is considered a therapeutic option. Performed By: #### 8 , 8531, 905 #### [facility] [address], [address] [place] [address] Sewer Digger: Eduardo Napier MD Triglyceride [Mass/Vol] 206 mg/dL High <150 [facility] Comment on above: Order Comment: FASTI NG:YESFASTING: YES Result Comment: If a non-fasting specimen was collected, consider repeat triglyceride testing on a fasting specimen if clinically indicated. Riddhi et al. J. of Clin. Lipidol. 2015;9:129-169. Performed By: #### 8 09, 0427, 905 #### [facility] [address], [address] [place] [address] Sewer Digger: Eduardo Napier MD TEST AUTHORIZATIONon 024 CLIENT CONTACT: JYOTI WILSON Normal [facility] Comment on above: Performed By: #### 8 09, 6678, 905 #### [facility] [place] [address] Sewer Digger: Eduardo Napier MD COMMENT Normal [facility] Comment on above: Result Comment: Plea se have the ordering physician or his or her authorized charter representative sign a copy of this report and promptly return it by faxing it to: [phone] or by returning the form to your dye house helper. Performed By: #### 8 , 44, 905 #### [facility] [place] [address] Sewer Digger: Eduardo Napier MD REPORT ALWAYS MESSAGE SIGNATURE Normal [facility] Comment on above: Result Comment: The laboratory testing on this patient was verbally requested or confirmed by the ordering physician or his or her authorized charter representative after contact with an employee of [employer]. Federal regulations require that we maintain on file written authorization for all laboratory testing. Accordingly we are asking that the ordering physician or his or her authorized charter representative sign a copy of this report and promptly return it to the client service professional. Signature: Performed By: #### 8 , 58, 905 #### [facility] [place] [address] Sewer Digger: Eduardo Napier MD TEST CODE: 496SB Normal [facility] Comment on above: Performed By: #### 06 18, 4419, 905 #### [facility] [place] [address] Sewer Digger: Eduardo Napier MD TEST NAME: HEMOGLOBIN A1c Normal [facility] Comment on above: Performed By: #### 8 , 98, 905 #### [facility] [place] [address] Sewer Digger: Eduardo Napier MD URIC ACIDon 04-08-2024 Urate [Mass/Vol] 6.6 mg/dL Normal 2.5-7.0 [facility] Comment on above: Result Comment: Ther apeutic target for gout patients: <6.0 mg/dL Performed By: #### 8 , 44, 905 #### [facility] [address], [address] [place] [address] Sewer Digger: Eduardo Napier MD CASE MANAGEMon 11-18-2019 CASE MANAGEM HNO ID: [id number] Author: Cherri (Rn) DEISY Meza Service: Case Management Author Type: Registered Nurse Type: Care Mgt Progress Note Filed: 11/18/2019 8:57 AM Note Text: CARE MANAGEMENT PROGRESS NOTE SERVICE DATE: 11/18/2019 SERVICE TIME: 8:54 AM LOS: 0 days Admission Date: 11/16/2019 DISCHARGE ARRANGEMENT (list agency and phone number) Home Provider: na Phone: na CAREGIVER ASSESSMENT: Caregiver is ready, willing and able to meet the patient's needs as recommended by the inter-professional team? No Caregiver Needed Patient's transition needs and plan for meeting these needs: na Does the patient have an acute stroke diagnosis, or has the patient had a stroke during this admission? No HANDOFF COMMUNICATION: Primary Care Physician: Name: Dr. Camargo TRANSPORTATION ARRANGEMENTS: Car patient will drive herself ADDITIONAL CONTACT RESOURCES: na Needs Prior to Discharge: None Discharge order written for today, patient discharged home with no services. Patient will drive herself home. SIGNATURE: Cherri Meza RN PATIENT NAME: Asya Claire DATE: November 18, 2019 TIME: 8:54 AM PAGER/CONTACT #: [phone] Normal [facility] CBCon 11-18-2019 Erythrocyte distribution width (RBC) [Ratio] 15.3 % High 11.5-15.0 [facility] Comment on above: Performed By: #### C BC, CMP ####[facility] [address] [place] [phone] Hematocrit (Bld) [Volume fraction] 32.3 % Low 36.0-46.0 [facility] Comment on above: Performed By: #### C BC, CMP ####[facility] [address] [place] [phone] Hemoglobin (Bld) [Mass/Vol] 10.3 g/dL Low 11.5-15.5 [facility] Comment on above: Performed By: #### C BC, CMP ####[facility] [address] [place] [phone] MCH (RBC) [Entitic mass] 26.7 pG Normal 26.0-34.0 [facility] Comment on above: Performed By: #### C BC, CMP ####[facility] [address] [place] [phone] MCHC (RBC) [Mass/Vol] 31.9 g/dL Normal 30.5-36.0 [facility] Comment on above: Performed By: #### Chris ANTHONY, CMP ####[facility] Ji[address]07[address] MCV (RBC) [Entitic vol] 83.7 fL Normal 80.0-100.0 [facility] Comment on above: Performed By: #### Chris ANTHONY, CMP ####[facility] [address] [place] [address] Platelet mean volume (Bld) [Entitic vol] 10.3 fL Normal 9.0-12.7 [facility] Comment on above: Performed By: #### Chris ANTHONY, CMP ####[facility] [address] [place] [address] Platelets (Bld) [#/Vol] 280 10*3/uL Normal 150-400 [facility] Comment on above: Performed By: #### Chris ANTHONY, CMP ####[facility] [address] [place] [address] RBC (Bld) [#/Vol] 3.86 10*6/uL Low 3.90-5.20 [facility] Comment on above: Performed By: #### Chris ANTHONY, CMP ####[facility] Ts[address]ct4425 [address] WBC (Bld) [#/Vol] 8.89 10*3/uL Normal 3.70-11.00 [facility] Comment on above: Performed By: #### Chris ANTHONY, CMP ####[facility] Fafw[address]liuj3998 [address] CNCOon 11-18-2019 CNCO Letter Text Normal [facility] Comp Metabolic Panelon 11-18 Albumin [Mass/Vol] 3.4 g/dL Low 3.9-4.9 [facility] Comment on above: Performed By: #### Chris ANTHOYN, CMP ####[facility] [address] [place] [phone] ALP [Catalytic activity/Vol] 90 U/L Normal 34-123 [facility] Comment on above: Performed By: #### C BC, CMP ####[facility] [address] [place] [address] ALT [Catalytic activity/Vol] 16 U/L Normal 7-38 [facility] Comment on above: Performed By: #### C BC, CMP ####[facility] [address] [place] [address] Anion gap [Moles/Vol] 11 mmol/L Normal 9-18 [facility] Comment on above: Performed By: #### C BC, CMP ####[facility] [address] [place] [address] AST [Catalytic activity/Vol] 15 U/L Normal 13-35 [facility] Comment on above: Performed By: #### C BC, CMP ####[facility] [address] [place] [address] Bilirubin [Mass/Vol] 0.3 mg/dL Normal 0.2-1.3 [facility] Comment on above: Performed By: #### C BC, CMP ####[facility] [address] [place] [address] Calcium [Mass/Vol] 8.8 mg/dL Normal 8.5-10.2 [facility] Comment on above: Performed By: #### C BC, CMP ####[facility] [address] [place] [address] Chloride [Moles/Vol] 102 mmol/L Normal 97-105 [facility] Comment on above: Performed By: #### C BC, CMP ####[facility] [address] [place] [address] CO2 [Moles/Vol] 29 mmol/L Normal 22-30 [facility] Comment on above: Performed By: #### C BC, CMP ####[facility] [address] [place] [address] Creatinine [Mass/Vol] 0.80 mg/dL Normal 0.58-0.96 [facility] Comment on above: Performed By: #### C BC, CMP ####[facility] [address] [place] [address] eGFR- Amer. >60 Normal [facility] Comment on above: Performed By: #### C BC, CMP ####[facility] [address] [place] [phone] GFR/1.73 sq M predicted among non-blacks MDRD (S/P/Bld) [Vol rate/Area] mL/min/{1.73_m2} Normal [facility] Comment on above: Result Comment: eGFR (Estimated GFR) Units of measure: mL/min/1.73 meters squared eGFR is derived from the reexpressed MDRD Study equation using the following parameters: serum creatinine, age, gender and race. The creatinine assay has been calibrated to be traceable to IDMS. An eGFR <60 mL/min/1.73m2 for >3 months is consistent with chronic kidney disease. Refer to KDOQI guidelines for clinical interpretation. In patients with unstable renal function, e.g. those with acute kidney injury, the eGFR may not accurately reflect actual GFR. Performed By: #### C BC, CMP ####[facility] [address] [place] [phone] Glucose [Mass/Vol] 109 mg/dL High 74-99 [facility] Comment on above: Result Comment: The [place] Diabetes Association (ADA) provides guidance for cutoff values for fasting glucose and random glucose. The ADA defines fasting as no caloric intake for at least 8 hours. Fasting plasma glucose results between 100 to 125 mg/dL indicate increased risk for diabetes (prediabetes). Fasting plasma glucose results greater than or equal to 126 mg/dL meet the criteria for diagnosis of diabetes. In the absence of unequivocal hyperglycemia, results should be confirmed by repeat testing. In a patient with classic symptoms of hyperglycemia or hyperglycemic crisis, random plasma glucose results greater than or equal to 200 mg/dL meet the criteria for diagnosis of diabetes. Reference: Standards of Medical Care in Diabetes 2016, [place] Diabetes Association. Diabetes Care. 2016.39(Suppl 1). Performed By: #### C BC, CMP ####[facility] [phone] Potassium [Moles/Vol] 3.6 mmol/L Low 3.7-5.1 [facility] Comment on above: Performed By: #### C BC, CMP ####[facility] [address] [place] [phone] Protein [Mass/Vol] 5.8 g/dL Low 6.3-8.0 [facility] Comment on above: Performed By: #### C BC, CMP ####[facility] [address] Sodium [Moles/Vol] 142 mmol/L Normal 136-144 [facility] Comment on above: Performed By: #### C BC, CMP ####[facility] [address] Urea nitrogen [Mass/Vol] 37 mg/dL High 7-21 [facility] Comment on above: Performed By: #### C BC, CMP ####[facility] [address]ym[address] NURSING PROGon 11-18-2019 NURSING PROG HNO ID: [id number] Author: Reyna (Rn) DEISY Hill Service: ? Author Type: Registered Nurse Type: Nursing Progress Note Filed: 11/18/2019 6:05 AM Note Text: Nursing Progress Note Patient Name: Asya Claire Patient Location: [place] [id number] Daily Note: 1900 Pt awake and alert in bed. Pt denies any pain, SOB, dizziness, or nausea. IVF infusing. Safety maintained. 2100 Pt awake and alert in bed. Pt denies any pain, SOB, dizziness, or nausea. IVF infusing. Safety maintained. 2300 Pt awake and alert in bed. Pt denies any pain, SOB, dizziness, or nausea. IVF infusing. Safety maintained. 0100 Pt awake and alert in bed. Pt denies any pain, SOB, dizziness, or nausea. IVF infusing. Safety maintained. 0300 Pt awake and alert in bed. Pt denies any pain, SOB, dizziness, or nausea. IVF infusing. Safety maintained. 0500 Pt awake and alert in bed. Pt denies any pain, SOB, dizziness, or nausea. IVF infusing. Safety maintained. 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 No Advance Directive: Current Advance Directive: Health Care Power of Quality Control Specialist;Living Will In Chart: Yes Up To Date and Valid: Yes Health Literacy: 1. How often do you need to have someone help you when you read instructions, pamphlets, or other written material from your doctor or pharmacy? Never - 1 2. How confident are you filling out medical forms by yourself? Extremely - 1 If Patient scores > 3 on either question, the following interventions were put into place: Patient did not score > 3 FUNCTIONAL AND COGNITIVE/BEHAVIORAL PRIOR TO ADMISSION: Baseline Mental Status: Alert AND Oriented, Person, Place , Time and Situation Functional Status: Independent Does Patient Currently Receive Any Community Services or Home Care? None Equipment Prior to Admission: None Has the Patient Been in a Custodial Facility in the Past 30 days? No SOCIAL: Living Arrangement: Home Lives With: Alone Financial Resources: Retired Primary Contact: Extended Emergency Contact Information Primary Emergency Contact: Lyla Antonio Address: [address] [place] [address] [place] [address] Relation: Child Secondary Emergency Contact: Chirstiano Claire Mobile Relation: Son Supportive: Yes Other Important Patient Contacts: None Caregiver Assessment: Caregiver is ready, willing and able to meet the patient's needs as recommended by the inter-professional team? No Caregiver Needed Patient's transition needs and plan for meeting these needs: na Does the patient have an acute stroke diagnosis, or has the patient had a stroke during this admission? No Medication Adherence: I am convinced of the importance of my prescription medication: Agree completely - 0 I worry that my prescription medication will do more harm than good to me Disagree mostly - 0 I feel financially burdened by my bjq-vk-vdxhsy expenses for my prescription medication: Disagree mostly -0 Patient is categorized as low risk < 2 Are you interested in bedside delivery of your medications? No Is the Patient Psychosocially Complex? No ASSESSMENT AND PLAN: Medical Needs: 2 or more chronic diseases Psychosocial Needs: None FREEDOM OF CHOICE EXPLAINED: No - No placements necessary POTENTIAL TRANSITION PLANS No Services Indicated Met with patient at bedside, introduced self/role of TCC. Patient was a direct admit from Dr. Camargo's office c/o cp, dizziness, nausea off and on over 4 days. Patient admitted to observation for further evaluation and treatment. Patient lives in a single story condo, with 2 steps at entry. Patient is independent with ADLs and IADLs. Anticipate no needs at discharge. CM will remain available should any discharge needs arise. SIGNATURE: Cherri Meza RN PATIENT NAME: Asya Claire DATE: November 17, 2019 TIME: 12:45 PM PAGER/CONTACT #: [phone] Normal [facility] CBCon 11-17-2019 Erythrocyte distribution width (RBC) [Ratio] 15.4 % High 11.5-15.0 [facility] Comment on above: Performed By: #### C BC, CMP ####[facility] [address] [place] [phone] Hematocrit (Bld) [Volume fraction] 36.7 % Normal 36.0-46.0 [facility] Comment on above: Performed By: #### C BC, CMP ####[facility] [address] [place] [phone] Hemoglobin (Bld) [Mass/Vol] 11.9 g/dL Normal 11.5-15.5 [facility] Comment on above: Performed By: #### C BC, CMP ####[facility] [address] [place] [phone] MCH (RBC) [Entitic mass] 26.9 pG Normal 26.0-34.0 [facility] Comment on above: Performed By: #### C BC, CMP ####[facility] [address] [place] [address] MCHC (RBC) [Mass/Vol] 32.4 g/dL Normal 30.5-36.0 [facility] Comment on above: Performed By: #### Chris ANTHONY, CMP ####[facility] [address] [place] [phone] MCV (RBC) [Entitic vol] 82.8 fL Normal 80.0-100.0 [facility] Comment on above: Performed By: #### Chris ANTHONY, CMP ####[facility] [address] [place] [address] Platelet mean volume (Bld) [Entitic vol] 10.3 fL Normal 9.0-12.7 [facility] Comment on above: Performed By: #### Chris ANTHONY, CMP ####[facility] [address] [place] [address] Platelets (Bld) [#/Vol] 332 10*3/uL Normal 150-400 [facility] Comment on above: Performed By: #### Chris ANTHONY, CMP ####[facility] [address] [place] [address] RBC (Bld) [#/Vol] 4.43 10*6/uL Normal 3.90-5.20 [facility] Comment on above: Performed By: #### Chris ANTHONY, CMP ####[facility] [address] [place], [place] [phone] WBC (Bld) [#/Vol] 12.13 10*3/uL High 3.70-11.00 [facility] Comment on above: Performed By: #### Chris ANTHONY, CMP ####[facility] [address] [place], [place] [phone] Comp Metabolic Panelon 11-17 Albumin [Mass/Vol] 3.6 g/dL Low 3.9-4.9 [facility] Comment on above: Performed By: #### Chris ANTHONY, CMP ####[facility] [address] [place], [place] [phone] ALP [Catalytic activity/Vol] 100 U/L Normal 34-123 [facility] Comment on above: Performed By: #### Chris ATNHONY, CMP ####[facility] [address] [place], [place] [phone] ALT [Catalytic activity/Vol] 17 U/L Normal 7-38 [facility] Comment on above: Performed By: #### C BC, CMP ####[facility] [address] [place] [address] Anion gap [Moles/Vol] 15 mmol/L Normal 9-18 [facility] Comment on above: Performed By: #### C BC, CMP ####[facility] [address]q4423 [place] [address] AST [Catalytic activity/Vol] 17 U/L Normal 13-35 [facility] Comment on above: Performed By: #### C BC, CMP ####[facility] [address] [place] [address] Bilirubin [Mass/Vol] 0.5 mg/dL Normal 0.2-1.3 [facility] Comment on above: Performed By: #### C BC, CMP ####[facility] [address] [place] [address] Calcium [Mass/Vol] 9.6 mg/dL Normal 8.5-10.2 [facility] Comment on above: Performed By: #### C BC, CMP ####[facility] [address] [place] [address] Chloride [Moles/Vol] 93 mmol/L Low 97-105 [facility] Comment on above: Performed By: #### C BC, CMP ####[facility] [address] [place] [address] CO2 [Moles/Vol] 31 mmol/L High 22-30 [facility] Comment on above: Performed By: #### C BC, CMP ####[facility] [address] [place] [address] Creatinine [Mass/Vol] 1.18 mg/dL High 0.58-0.96 [facility] Comment on above: Performed By: #### C BC, CMP ####[facility] [address] [place] [address] eGFR- Amer. 55 Normal [facility] Comment on above: Performed By: #### C BC, CMP ####[facility] [address] [place] [address] GFR/1.73 sq M predicted among non-blacks MDRD (S/P/Bld) [Vol rate/Area] 45 . Normal [facility] Comment on above: Result Comment: eGFR (Estimated GFR) Units of measure: mL/min/1.73 meters squared eGFR is derived from the reexpressed MDRD Study equation using the following parameters: serum creatinine, age, gender and race. The creatinine assay has been calibrated to be traceable to IDMS. An eGFR <60 mL/min/1.73m2 for >3 months is consistent with chronic kidney disease. Refer to KDOQI guidelines for clinical interpretation. In patients with unstable renal function, e.g. those with acute kidney injury, the eGFR may not accurately reflect actual GFR. Performed By: #### C BC, CMP ####[facility] Bdlreydjmj6624 [address] Glucose [Mass/Vol] 115 mg/dL High 74-99 [facility] Comment on above: Result Comment: The [place] [employer] (ADA) provides guidance for cutoff values for fasting glucose and random glucose. The ADA defines fasting as no caloric intake for at least 8 hours. Fasting plasma glucose results between 100 to 125 mg/dL indicate increased risk for diabetes (prediabetes). Fasting plasma glucose results greater than or equal to 126 mg/dL meet the criteria for diagnosis of diabetes. In the absence of unequivocal hyperglycemia, results should be confirmed by repeat testing. In a patient with classic symptoms of hyperglycemia or hyperglycemic crisis, random plasma glucose results greater than or equal to 200 mg/dL meet the criteria for diagnosis of diabetes. Reference: Standards of Medical Care in Diabetes 2016, [place] [employer]. Diabetes Care. 2016.39(Suppl 1). Performed By: #### C BC, CMP ####[facility] [address] [place] [phone] Potassium [Moles/Vol] 3.4 mmol/L Low 3.7-5.1 [facility] Comment on above: Performed By: #### C BC, CMP ####[facility] [address] [place] [phone] Protein [Mass/Vol] 6.2 g/dL Low 6.3-8.0 [facility] Comment on above: Performed By: #### C BC, CMP ####[facility] [address] [place] [phone] Sodium [Moles/Vol] 139 mmol/L Normal 136-144 [facility] Comment on above: Performed By: #### C BC, CMP ####[facility] [phone] Urea nitrogen [Mass/Vol] 53 mg/dL High 7-21 [facility] Comment on above: Performed By: #### C BC, CMP ####[facility] [address] [place] [phone] NURSING PROGon 11-17-2019 NURSING PROG HNO ID: [id number] Author: Rebecca (Rn) DEISY Jones Service: ? Author Type: Registered Nurse Type: Nursing Progress Note Filed: 11/17/2019 6:17 PM Note Text: Nursing Progress Note Patient Name: Asya Claire Patient Location: [place] [id number] Daily Note: 0720-Bedside report received. Patient resting in bed awake. No complaints or needs. IVF infusing. Tele on-patient normal sinus rhythm. Pain 0/10. Safety maintained, will monitor. 0915-Morning medications given. Patient has no complaints. IVF infusing. Will monitor. 1040-Patient ambulating safely in the hallway. Will monitor. 1200-Patient up to chair eating. IVF infusing. No complaints or needs. Will monitor. 1400-Patient resting. No needs or complaints. IVF infusing. Tele on-patient sinus rhythm-rate of 78. 1600-Patient resting. No complaints. IVF infusing. Tele on-patient SR-Rate 77. Will monitor. This note was completed by: Rebecca Jones RN Normal [facility] PROGRESSon 11-17-2019 PROGRESS HNO ID: [id number] Author: Jarad Camarog Service: Family Practice Author Type: Physician Type: Progress Notes Filed: 11/17/2019 7:45 AM Note Text: INPATIENT PROGRESS NOTES Patient Name: Asya Claire DATE of SERVICE: 11/17/2019 TIME of SERVICE: 7:43 AM PRIMARY SERVICE: Family Practice INTERVAL HPI: feeling better but has not been oob Numbers look better this am ASSESSMENT AND PLAN: Bun 53 cr 1.2 Leukocytosis Neg cxr bnp at 132 Will keep another day for hydration MEDICATIONS: Current Facility-Administered Medications Medication Dose Route Frequency - losartan 50 mg tab(s) (COZAAR) 50 mg ORAL DAILY - amLODIPine 10 mg tab(s) (NORVASC) 10 mg ORAL DAILY - pantoprazole DR 40 mg tab(s) (PROTONIX) 40 mg ORAL DAILY - NaCl 0.9% iv infusion 75 mL/hr INTRAVENOUS CONTINUOUS - ondansetron orally disintegrating 4 mg tab(s) (ZOFRAN ODT) 4 mg ORAL q 6 H PRN Or - ondansetron (PF) 4 mg injection (ZOFRAN) 4 mg INTRAVENOUS q 6 H PRN - acetaminophen 325-650 mg tab(s) (TYLENOL) 325-650 mg ORAL q 4 H PRN - potassium chloride 40 mEq tablet (K-TAB) 40 mEq ORAL BID Patient Vitals for the past 48 hrs: BP Temp Temp src Pulse Resp SpO2 Height Weight 11/17/19 0409 121/53 36.8 ?C (98.2 ?F) Oral 70 14 95 % ? ? 11/16/19 2340 152/54 36.7 ?C (98.1 ?F) Oral 78 18 94 % ? ? 11/16/19 1948 (!) 114/48 36.3 ?C (97.3 ?F) Oral 73 15 98 % ? ? 11/16/19 1528 (!) 105/41 36.9 ?C (98.4 ?F) Oral 90 16 96 % 165.1 cm (5' 5) 115.5 kg (254 lb 10.1 oz) PHYSICAL EXAM: GENERAL: alert, no distress, cooperative SKIN: No rashes or lesions. OROPHARYNX: Oropharynx normal. NECK: no jugulovenous distention, supple LUNGS: Lungs clear to auscultation. CARDIAC: normal S1 and S2; no rubs, murmurs, or gallops ABDOMEN: Abdomen soft, non-tender. BS normal. No masses or organomegaly. EXTREMETIES: No deformities, cyanosis, edema, clubbing or skin discoloration. NEURO: Alert, oriented X 3, Gait normal. Motor and Sensation grossly intact., DATA: CBC: Recent Labs 11/17/19519 WBC 12.13* RBC 4.43 HB 11.9 HCT 36.7 PLT 332 MCV 82.8 MCH 26.9 MPV 10.3 Coags: No results for input(s): INR, APTT in the last 24 hours. Invalid input(s): PT CMP: Recent Labs 11/17/1951911/16/19 1719 NA 139 137 K 3.4* 3.2* CHLOR 93* 91* CO2 31* 31* BUN 53* 56* CREAT 1.18* 1.46* GLUC 115* 141* TPROT 6.2* 7.6 CA 9.6 10.4* MG -- 2.5* TBILI 0.5 0.4 ALKPHOS 100 121 ALT 17 24 AST 17 22 ANION 15 15 Cardiac Enzymes: No results for input(s): CK, MB, CKMB, TROPT in the last 24 hours. Liver Function, Amylase, Lipase: Recent Labs 11/17/19519 TPROT 6.2* ALB 3.6* ALT 17 AST 17 ALKPHOS 100 TBILI 0.5 ABG's: No results for input(s): PH, PCO2, PO2, BE, HCO3, CO2CT, O2HB, COHB, MHGB, TEMP, PHTC, PCO2T, PO2T, O2AD in the last 24 hours. MG/PHOS: Recent Labs 11/16/19 1719 MG 2.5* Plan of care discussed with: . SIGNATURE: Jarad Camargo MD DATE: November 17, 2019 TIME: 7:43 AM Normal [facility] CBCon 11-16-2019 Erythrocyte distribution width (RBC) [Ratio] 15.3 % High 11.5-15.0 [facility] Comment on above: Performed By: #### C RAJ CMP, MG1 ####[facility] Aefmfcrxtd2145 [phone] Hematocrit (Bld) [Volume fraction] 42.4 % Normal 36.0-46.0 [facility] Comment on above: Performed By: #### C RAJ CMP, MG1 ####[facility] Wndqtdvdsi8914 [phone] Hemoglobin (Bld) [Mass/Vol] 14.2 g/dL Normal 11.5-15.5 [facility] Comment on above: Performed By: #### C BC, CMP, MG1 ####[facility] [address] [place] [address] MCH (RBC) [Entitic mass] 27.0 pG Normal 26.0-34.0 [facility] Comment on above: Performed By: #### C BC, CMP, MG1 ####[facility] [address] [place] [address] MCHC (RBC) [Mass/Vol] 33.5 g/dL Normal 30.5-36.0 [facility] Comment on above: Performed By: #### C BC, CMP, MG1 ####[facility] [address] [place] [address] MCV (RBC) [Entitic vol] 80.6 fL Normal 80.0-100.0 [facility] Comment on above: Performed By: #### C BC, CMP, MG1 ####[facility] [address] [place] [address] Platelet mean volume (Bld) [Entitic vol] 10.2 fL Normal 9.0-12.7 [facility] Comment on above: Performed By: #### C BC, CMP, MG1 ####[facility] [address] [place] [address] Platelets (Bld) [#/Vol] 418 10*3/uL High 150-400 [facility] Comment on above: Performed By: #### C BC, CMP, MG1 ####[facility] [address] [place] [address] RBC (Bld) [#/Vol] 5.26 10*6/uL High 3.90-5.20 [facility] Comment on above: Performed By: #### C BC, CMP, MG1 ####[facility] [address] [place] [address] WBC (Bld) [#/Vol] 16.48 10*3/uL High 3.70-11.00 [facility] Comment on above: Performed By: #### C BC, CMP, MG1 ####[facility] [address] [place] [phone] Comp Metabolic Panelon 11-16 Albumin [Mass/Vol] 4.2 g/dL Normal 3.9-4.9 [facility] Comment on above: Performed By: #### C BC, CMP, MG1 ####[facility] [address] [place] [address] ALP [Catalytic activity/Vol] 121 U/L Normal 34-123 [facility] Comment on above: Performed By: #### C BC, CMP, MG1 ####[facility] [address] [place] [address] ALT [Catalytic activity/Vol] 24 U/L Normal 7-38 [facility] Comment on above: Performed By: #### C BC, CMP, MG1 ####[facility] [address] [place] [address] Anion gap [Moles/Vol] 15 mmol/L Normal 9-18 [facility] Comment on above: Performed By: #### C BC, CMP, MG1 ####[facility] [address] [place] [address] AST [Catalytic activity/Vol] 22 U/L Normal 13-35 [facility] Comment on above: Performed By: #### C BC, CMP, MG1 ####[facility] [address] [place] [address] Bilirubin [Mass/Vol] 0.4 mg/dL Normal 0.2-1.3 [facility] Comment on above: Performed By: #### C BC, CMP, MG1 ####[facility] [address] [place] [address] Calcium [Mass/Vol] 10.4 mg/dL High 8.5-10.2 [facility] Comment on above: Performed By: #### C BC, CMP, MG1 ####[facility] [address] [place] [address] Chloride [Moles/Vol] 91 mmol/L Low 97-105 [facility] Comment on above: Performed By: #### C BC, CMP, MG1 ####[facility] [address] [place] [address] CO2 [Moles/Vol] 31 mmol/L High 22-30 [facility] Comment on above: Performed By: #### C YURY ANTHONY, MG1 ####[facility] [address]373 [phone] Creatinine [Mass/Vol] 1.46 mg/dL High 0.58-0.96 [facility] Comment on above: Performed By: #### C YURY ANTHONY, MG1 ####[facility] [address]qeb8085 [phone] eGFR- Amer. 43 [facility] Comment on above: Performed By: #### C YURY ANTHONY, MG1 ####[facility] [address] [place] [phone] GFR/1.73 sq M predicted among non-blacks MDRD (S/P/Bld) [Vol rate/Area] 35 . Normal [facility] Comment on above: Result Comment: eGFR (Estimated GFR) Units of measure: mL/min/1.73 meters squared eGFR is derived from the reexpressed MDRD Study equation using the following parameters: serum creatinine, age, gender and race. The creatinine assay has been calibrated to be traceable to IDMS. An eGFR <60 mL/min/1.73m2 for >3 months is consistent with chronic kidney disease. Refer to KDOQI guidelines for clinical interpretation. In patients with unstable renal function, e.g. those with acute kidney injury, the eGFR may not accurately reflect actual GFR. Performed By: #### C YURY ANTHONY, MG1 ####[facility] [phone] Glucose [Mass/Vol] 141 mg/dL High 74-99 [facility] Comment on above: Result Comment: The [place] [employer] (ADA) provides guidance for cutoff values for fasting glucose and random glucose. The ADA defines fasting as no caloric intake for at least 8 hours. Fasting plasma glucose results between 100 to 125 mg/dL indicate increased risk for diabetes (prediabetes). Fasting plasma glucose results greater than or equal to 126 mg/dL meet the criteria for diagnosis of diabetes. In the absence of unequivocal hyperglycemia, results should be confirmed by repeat testing. In a patient with classic symptoms of hyperglycemia or hyperglycemic crisis, random plasma glucose results greater than or equal to 200 mg/dL meet the criteria for diagnosis of diabetes. Reference: Standards of Medical Care in Diabetes 2016, [place] [employer]. Diabetes Care. 2016.39(Suppl 1). Performed By: #### C BC, CMP, MG1 ####[facility] [address] [place] [phone] Potassium [Moles/Vol] 3.2 mmol/L Low 3.7-5.1 [facility] Comment on above: Performed By: #### C BC, CMP, MG1 ####[facility] [address]mwpe1383 [phone] Protein [Mass/Vol] 7.6 g/dL Normal 6.3-8.0 [facility] Comment on above: Performed By: #### C BC, CMP, MG1 ####[facility] [address] [place] [phone] Sodium [Moles/Vol] 137 mmol/L Normal 136-144 [facility] Comment on above: Performed By: #### C BC, CMP, MG1 ####[facility] [address] [place] [phone] Urea nitrogen [Mass/Vol] 56 mg/dL High 7-21 [facility] Comment on above: Performed By: #### C BC, CMP, MG1 ####[facility] [address]721[address]160 HISTORY PHYSICALon 0 HISTORY PHYSICAL HNO ID: [id number] Author: Jarad Camargo Service: Family Practice Author Type: Physician Type: HANDP Filed: 11/17/2019 7:38 AM Note Text: HISTORY AND PHYSICAL EXAMINATION - INTERNAL MEDICINE PATIENT NAME: Asya Claire SERVICE DATE: 11/16/2019 SERVICE TIME: 1600 PRIMARY CARE PHYSICIAN: Jarad Camargo MD ASSESSMENT AND PLAN Active Problems: Dehydration POA: Yes Assessment AND Plan: had labs in the ER will repeat BNP IVF at 100cc/hr Replace K+ SUBJECTIVE CHIEF COMPLAINT: Feeling poorly HISTORY OF PRESENT ILLNESS: Ms. Claire is a 73 year old female who presents with c/o feeling poorly since seen in the ER on the . She was sent home after w/u for CP. She almost in tears, about 2 weeks ago we started metolazone for edema on top of her lasix 80mg bid. No cough, no CP, some SOB. Labs show bun 69 and cr 1.5, she is nl at baseline. PAST MEDICAL HISTORY: PAST MEDICAL HISTORY Diagnosis Date - Hypertension PAST SURGICAL HISTORY: PAST SURGICAL HISTORY Procedure Laterality Date - NONE - ORTHOPEDICS SURGERY HX july 2015 right hip replacement FAMILY HISTORY: FAMILY HISTORY Problem Relation Age of Onset - Stroke Mother 70 SOCIAL HISTORY: Social History Tobacco Use - Smoking status: Former Smoker Packs/day: 1.00 Years: 40.00 Pack years: 40.00 Types: Cigarettes Start date: 11/10/1964 Last attempt to quit: 11/10/2004 Years since quittin.0 - Smokeless tobacco: Never Used Substance Use Topics - Alcohol use: Yes Comment: socially - Drug use: No MEDICATIONS: amLODIPine (NORVASC) 10 mg tablet, Take 10 mg by mouth once daily., Disp: , Rfl: , 11/16/2019 at Unknown time pantoprazole DR (PROTONIX) 40 mg tablet, Take 40 mg by mouth once daily., Disp: , Rfl: , 11/16/2019 at Unknown time Ibuprofen 200 mg cap, Take 800 mg by mouth three times daily., Disp: , Rfl: , 11/16/2019 at Unknown time losartan (COZAAR) 50 mg tablet, Take 50 mg by mouth once daily., Disp: , Rfl: , 11/16/2019 at Unknown time furosemide (LASIX) 40 mg tablet, Take 80 mg by mouth once daily., Disp: , Rfl: , 11/16/2019 at Unknown time potassium chloride (KLOR-CON 10) 10 mEq tablet, Take 20 mEq by mouth twice daily., Disp: , Rfl: , 11/16/2019 at Unknown time FOLIC ACID/MULTIVITS-MIN/LUT (CENTRUM SILVER ORAL), Take by mouth., Disp: , Rfl: , 11/16/2019 at Unknown time ALLERGIES: ALLERGIES No Known Allergies COMPLETE REVIEW OF SYSTEMS: GENERAL: No weight loss, +malaise no fevers HEENT: Negative for frequent or significant headaches, No changes in hearing or vision, no nose bleeds or other nasal problems NECK: Negative for lumps, goiter, pain and significant neck swelling RESPIRATORY: Negative for cough, wheezing or shortness of breath. CARDIOVASCULAR: Negative for chest pain, leg swelling or palpitations. GI: Negative for abdominal discomfort, blood in stools or black stools or change in bowel habits : No history of dysuria, frequency or incontinence MUSCULOSKELETAL: Negative for joint pain or swelling, back pain or muscle pain. SKIN: Negative for lesions, rash, and itching. PSYCH: Negative for sleep disturbance, mood disorder and recent psychosocial stressors. HEMATOLOGY/LYMPHOLOGY Negative for prolonged bleeding, bruising easily or swollen nodes. ENDOCRINE: Negative for cold or heat intolerance, polyuria, polydipsia and goiter. NEURO: No history of headaches, syncope, paralysis, seizures or tremors OBJECTIVE PHYSICAL EXAM: Patient Vitals for the past 24 hrs: BP Temp Temp src Pulse Resp SpO2 Height Weight 11/17/19 0409 121/53 36.8 ?C (98.2 ?F) Oral 70 14 95 % ? ? 11/16/19 2340 152/54 36.7 ?C (98.1 ?F) Oral 78 18 94 % ? ? 11/16/19 1948 (!) 114/48 36.3 ?C (97.3 ?F) Oral 73 15 98 % ? ? 11/16/19 1528 (!) 105/41 36.9 ?C (98.4 ?F) Oral 90 16 96 % 165.1 cm (5' 5) 115.5 kg (254 lb 10.1 oz) Body mass index is 42.37 kg/m?. PHYSICAL EXAMINATION: General appearance: ill appearing, alert, in no acute distress, Skin: skin color, texture, turgor normal, no suspicious rashes or lesions Head: normal Eyes: Anicteric sclera. Pupils are equally round and reactive to light. Extraocular movements are intact. Ears: external ears normal, canals clear, TM's normal Nose/Sinuses: negative Oropharynx: lips, mucosa, and tongue normal, teeth and gums normal, oropharynx normal Neck: Supple, no adenopathy; thyroid symmetric, normal size, no bruits Back: no pain to palpation over spine or costovertebral angles, reflexes are 2+ and symmetric, motor and sensory appear to be normal Lungs: clear to auscultation, no wheezing or rhonchi Heart: tachy without murmur, gallop, or rubs. No ectopy Abdomen: Normal abdominal exam, Abdomen soft, non-tender. Bowel sounds normal. No masses, organomegaly Extremities: Extremities normal. No deformities, edema, or skin discoloration. Good capillary refill. Musculoskeletal: Spine range of motion normal. Muscular strength intact Peripheral pulses: Normal Neuro: Reflexes normal and symmetric. Sensation grossly intact. DATA: CBC, Coags, BMP, Mg, Phos Recent Labs 11/17/1951911/16/19171811/14/19 1048 WBC 12.13* 16.48* 11.45* HB 11.9 14.2 14.1 HCT 36.7 42.4 41.9 PLT 332 418* 446* NA 139 137 134* K 3.4* 3.2* 3.1* CHLOR 93* 91* 83* CO2 31* 31* 31* BUN 53* 56* 69* CREAT 1.18* 1.46* 1.44* GLUC 115* 141* 144* CA 9.6 10.4* 10.0 MG -- 2.5* 2.8* Liver Function, Amylase, AND Lipase Recent Labs 11/17/1951911/16/19171811/14/19 1048 TPROT 6.2* 7.6 7.9 ALB 3.6* 4.2 4.5 ALT 17 24 24 AST 17 22 22 ALKPHOS 100 121 122 TBILI 0.5 0.4 0.5 Cardiac Enzymes ABGs SIGNATURE: Jarad Camargo MD DATE: November 17, 2019 TIME: 7:32 AM Normal [facility] Magnesiumon 11-16-2019 Magnesium [Mass/Vol] 2.5 mg/dL High 1.7-2.3 [facility] Comment on above: Performed By: #### C BC, CMP, MG1 ####[facility] [address] [place] [phone] NT Pro BNPon 11-16-2019 PRO B Natr Peptide 132 pg/mL High <125 [facility] Comment on above: Performed By: #### N TBNP ####[facility] [address] [place] [phone] NURSING PROGon 11-16-2019 NURSING PROG HNO ID: [id number] Author: Reyna (Rn) Sergio, RN Service: ? Author Type: Registered Nurse Type: Nursing Progress Note Filed: 11/17/2019 7:07 AM Note Text: Nursing Progress Note Patient Name: Asya Claire Patient Location: [facility]400/[id number] Daily Note: 1930 Assumed care of pt. Pt awake and alert in bed. Pt denies any pain, SOB, or dizziness. IVF infusing. IPC's on. Safety maintained. 2100 Pt awake and alert in bed. Pt denies any pain or SOB at this time. Pt c/o dizziness and chest pain at times. Pt educated on fall risk and asked to call before getting out of bed. Pt has electrolyte imbalance. Paged GLAZE SPRAYER. Orders given. Will put pt on telemetry monitoring. IVF infusing. IPC's on. Safety maintained. 2300 Pt awake and alert in bed. Pt denies any pain, SOB, or dizziness. IVF infusing. IPC's on. Safety maintained. 0100 Pt awake and alert in bed. Pt denies any pain, SOB, or dizziness. IVF infusing. IPC's on. Safety maintained. 0300 Pt awake and alert in bed. Pt denies any pain, SOB, or dizziness. IVF infusing. IPC's on. Safety maintained. 0400 Pt c/o generalized pain, states she takes ibuprofen at home. Koki OLIVER. Will order pain medication. 0500 Pt awake and alert in bed. Pt c/o generalized pain. Will medicate per MAR. Pt denies SOB, chest pain, or dizziness. IVF infusing. IPC's on. Safety maintained. This note was completed by: Reyna Hill RN [facility] XR CHEST 2V FRONTAL/LATon XR CHEST 2V FRONTAL/LAT * * *Final Report* * * DATE OF EXAM: Nov 16 2019 4:50PM MDX 5291 - XR CHEST 2V FRONTAL/LAT / PROCEDURE REASON: Fatigue and malaise * * * * Physician Interpretation * * * * EXAMINATION: CHEST RADIOGRAPH (2 VIEW FRONTAL and LATERAL) CLINICAL HISTORY: Fatigue and malaise MQ: XC2_5 Comparison: 04/10/2016 RESULT: Lines, tubes, and devices: None. Lungs and pleura: No consolidation. No lung mass. No pleural effusion. Cardiomediastinal silhouette: Normal cardiomediastinal silhouette. IMPRESSION: No acute radiographic abnormality. Special Service Officer: PSCB Transcribe Date/Time: Nov 16 2019 5:01P Dictated by : COLIN LEIVA MD This examination was interpreted and the report reviewed and electronically signed by: COLIN LEIVA MD on Nov 16 2019 5:05PM EST [id number] [facility] ALLIED HEALTHon 11-14-2019 ALLIED HEALTH HNO ID: [id number] Author: MAVIS Rich (Ct) Service: ? Author Type: Clinical Dining Service Supervisor Type: Allied Health Filed: 11/14/2019 12:09 PM Note Text: Radiology Service Progress Note PATIENT NAME: Asya Claire DATE OF SERVICE: November 14, 2019 TIME: 12:08 PM PATIENT IDENTITY VERIFICATION COMPLETED USING TWO (2) IDENTIFIERS: Name and Date of confirmed by patient verbally and Name and Date of confirmed by identification band. PATIENT GENDER DATA: Female. status: : No status: NO. PATIENT RELEVANT IMPLANT DATA REVIEWED: Not Applicable RADIOLOGY DEPARTMENT: General X-ray: Exam(s) Completed: Chest X-Ray PERIPHERAL IV DATA: Not applicable SIGNED BY: MAIVS Rich November 14, 2019 12:08 PM [facility] CBCon 11-14-2019 Erythrocyte distribution width (RBC) [Ratio] 15.8 % High 11.5-15.0 [facility] Comment on above: Performed By: #### C BC, CMP, MG1 #### [facility] [address] [place] [address] Hematocrit (Bld) [Volume fraction] 41.9 % Normal 36.0-46.0 [facility] Comment on above: Performed By: #### C BC, CMP, MG1 #### [facility] [address] [place] [address] Hemoglobin (Bld) [Mass/Vol] 14.1 g/dL Normal 11.5-15.5 [facility] Comment on above: Performed By: #### C BC, CMP, MG1 #### [facility] [address] [facility] [phone] MCH (RBC) [Entitic mass] 26.9 pG Normal 26.0-34.0 [facility] Comment on above: Performed By: #### C BC, CMP, MG1 #### [facility] [address] [facility] [phone] MCHC (RBC) [Mass/Vol] 33.7 g/dL Normal 30.5-36.0 [facility] Comment on above: Performed By: #### C BC, CMP, MG1 #### [facility] [address] [facility] [phone] MCV (RBC) [Entitic vol] 79.8 fL Low 80.0-100.0 [facility] Comment on above: Performed By: #### C BC, CMP, MG1 #### [facility] [address] [facility] [phone] Platelet mean volume (Bld) [Entitic vol] 10.0 fL Normal 9.0-12.7 [facility] Comment on above: Performed By: #### C BC, CMP, MG1 #### [facility] [address] [phone] Platelets (Bld) [#/Vol] 446 10*3/uL High 150-400 [facility] Comment on above: Performed By: #### C BC, CMP, MG1 #### [facility] [address] [facility] [phone] RBC (Bld) [#/Vol] 5.25 10*6/uL High 3.90-5.20 [facility] Comment on above: Performed By: #### C BC, CMP, MG1 #### [facility] [address] [facility] [phone] WBC (Bld) [#/Vol] 11.45 10*3/uL High 3.70-11.00 [facility] Comment on above: Performed By: #### C BC, CMP, MG1 #### [facility] [address] [facility] [phone] Comp Metabolic Panelon 11-14 Albumin [Mass/Vol] 4.5 g/dL Normal 3.9-4.9 [facility] Comment on above: Performed By: #### C BC, CMP, MG1 #### [facility] [address] [facility] [phone] ALP [Catalytic activity/Vol] 122 U/L Normal 34-123 [facility] Comment on above: Performed By: #### C BC, CMP, MG1 #### [facility] [address] [address] ALT [Catalytic activity/Vol] 24 U/L Normal 7-38 [facility] Comment on above: Performed By: #### C BC, CMP, MG1 #### [facility] [address] Anion gap [Moles/Vol] 20 mmol/L High 9-18 [facility] Comment on above: Performed By: #### C BC, CMP, MG1 #### [facility] [address] [address] AST [Catalytic activity/Vol] 22 U/L Normal 13-35 [facility] Comment on above: Performed By: #### C BC, CMP, MG1 #### [facility] [address] [address] Bilirubin [Mass/Vol] 0.5 mg/dL Normal 0.2-1.3 [facility] Comment on above: Performed By: #### C BC, CMP, MG1 #### [facility] [address] [place] [address] Calcium [Mass/Vol] 10.0 mg/dL Normal 8.5-10.2 [facility] Comment on above: Performed By: #### C BC, CMP, MG1 #### [facility] [address] [place] [address] Chloride [Moles/Vol] 83 mmol/L Low 97-105 [facility] Comment on above: Performed By: #### C BC, CMP, MG1 #### [facility] [address] CO2 [Moles/Vol] 31 mmol/L High 22-30 [facility] Comment on above: Performed By: #### C BC, CMP, MG1 #### [facility] [address] [place], [place] [phone] Creatinine [Mass/Vol] 1.44 mg/dL High 0.58-0.96 [facility] Comment on above: Performed By: #### C BC, CMP, MG1 #### [facility] [address] eGFR- Amer. 43 Normal [facility] Comment on above: Performed By: #### C YURY ANTHONY, MG1 #### [facility] [address] [facility] [phone] GFR/1.73 sq M predicted among non-blacks MDRD (S/P/Bld) [Vol rate/Area] 36 . Normal [facility] Comment on above: Result Comment: eGFR (Estimated GFR) Units of measure: mL/min/1.73 meters squared eGFR is derived from the reexpressed MDRD Study equation using the following parameters: serum creatinine, age, gender and race. The creatinine assay has been calibrated to be traceable to IDMS. An eGFR <60 mL/min/1.73m2 for >3 months is consistent with chronic kidney disease. Refer to KDOQI guidelines for clinical interpretation. In patients with unstable renal function, e.g. those with acute kidney injury, the eGFR may not accurately reflect actual GFR. Performed By: #### C YURY ANTHONY, MG1 #### [facility] [address] [facility] [phone] Glucose [Mass/Vol] 144 mg/dL High 74-99 [facility] Comment on above: Result Comment: The [place] [employer] (ADA) provides guidance for cutoff values for fasting glucose and random glucose. The ADA defines fasting as no caloric intake for at least 8 hours. Fasting plasma glucose results between 100 to 125 mg/dL indicate increased risk for diabetes (prediabetes). Fasting plasma glucose results greater than or equal to 126 mg/dL meet the criteria for diagnosis of diabetes. In the absence of unequivocal hyperglycemia, results should be confirmed by repeat testing. In a patient with classic symptoms of hyperglycemia or hyperglycemic crisis, random plasma glucose results greater than or equal to 200 mg/dL meet the criteria for diagnosis of diabetes. Reference: Standards of Medical Care in Diabetes 2016, [place] [employer]. Diabetes Care. 2016.39(Suppl 1). Performed By: #### C YURY ANTHONY, MG1 #### [facility] [address] [facility] [phone] Potassium [Moles/Vol] 3.1 mmol/L Low 3.7-5.1 [facility] Comment on above: Performed By: #### C YURY ANTHONY, MG1 #### [facility] [address] [place] [phone] Protein [Mass/Vol] 7.9 g/dL Normal 6.3-8.0 [facility] Comment on above: Performed By: #### C BC, CMP, MG1 #### [facility] [address] [facility] [phone] Sodium [Moles/Vol] 134 mmol/L Low 136-144 [facility] Comment on above: Performed By: #### C BC, CMP, MG1 #### [facility] [address] [place] [phone] Urea nitrogen [Mass/Vol] 69 mg/dL High 7-21 [facility] Comment on above: Performed By: #### C BC, CMP, MG1 #### [facility] [address] [place] [phone] ECG COMPLETEon 11-14-2019 ECG COMPLETE NAME : RO CLAIRE ON PID : [id number] : 1945 Gender : Female Race : ORD : [id number] Procedure Date : Nov 14 2019 10:22:17 Edit Date : Nov 14 2019 14:35:07 Diagnosis:NORMAL SINUS RHYTHM CANNOT RULE OUT ANTERIOR INFARCT , AGE UNDETERMINED ABNORMAL ECG No STEMI 1022 Confirmed by MD JENNIE, RASHEED ([id number]), marketing editor ELSA AGUILERA ([id number]) on 11/14/2019 2:35:04 PM Ventricular Rate : 70 BPM Atrial Rate : 70 BPM P-R Interval : 146 ms QRS Duration : 92 ms Q-T Interval : 408 ms QTC Calculation(Bazett) : 440 ms P [place] : 55 degrees R [place] : 25 degrees T [place] : 21 degrees Test Reason : Chest Pain Location : 1 : ER 05 Overread By : MD SCHNEIDER BENJAMIN Edited By : ELSA AGUILERA Referred By : System,System Acquired by : System,System [facility] ED NOTEon 11-14-2019 ED NOTE HNO ID: [id number] Author: lEmer (Rn) DEISY Hall Service: Nursing Author Type: Registered Nurse Type: ED Notes Filed: 11/14/2019 2:40 PM Note Text: D/C education completed at this time. Patient denies questions. Educated on follow up visit. Dr. Schneider at bedside to round on patient. VSS. IV removed [facility] ED NOTE HNO ID: [id number] Author: Elmer (Rn) Rafael RN Service: Nursing Author Type: Registered Nurse Type: ED Notes Filed: 11/14/2019 10:54 AM Note Text: Pt to ED complaining of generalized malaise and chest pain. She also endorses nausea and diarrhea. Pain has been on going since 11/11. Pt states she has had several cardiac work ups in the past for squeezing chest pain that comes and goes, but no abnormal results have been found. Pt denies symptoms such as cough, vomiting, or congestion. EKG completed and handed to physician. Assessment complete. [facility] ED NOTE HNO ID: [id number] Author: Elmer (Rn) DEISY Hall Service: Nursing Author Type: Registered Nurse Type: ED Notes Filed: 11/14/2019 10:42 AM Note Text: Medic at bedside for IV insertion and lab draw at this time. [facility] ED NOTE HNO ID: [id number] Author: Leticia (Rn) DEISY Hayden Service: ? Author Type: Registered Nurse Type: ED Notes Filed: 11/14/2019 10:17 AM Note Text: Patient presents to the ED with chest pressure, head ache and dizziness for the past several days. Patient had started some new medications and had thought they were to blame. [facility] ED PROV NOTEon 11-14-2019 ED PROV NOTE HNO ID: [id number] Author: Rasheed Schneider DO Service: Emergency Medicine Author Type: Physician Type: ED Provider Notes Filed: 11/14/2019 7:40 PM Note Text: ED Provider Note Patient Name: Asya Claire SERVICE DATE: 11/14/19 History Patient presents with: Dizziness Headache 73 year old female presents for a 4 day history of intermittent midsternal chest pain with intermittent dizziness, nausea, and headache. She describes the chest pain as a squeezing sensation that lasts 5-15 minutes. She states she has been having 2-3 episodes a day. She denies any treatment for the pain. She states she started prednisone for left shoulder pain and metolazone for bilateral lower extremity swelling on Friday. She was concerned the symptoms may be related to new medication and stopped taking both yesterday. She currently denies chest pain, shortness of breath, dizziness, nausea, or vomiting. Chest Pain Pain location: Substernal area Pain quality: tightness Pain radiates to: Does not radiate Pain severity: No pain Onset quality: Sudden Duration: 4 days Timing: Intermittent Progression: Unchanged Chronicity: New Context: movement Relieved by: Rest Worsened by: Movement Ineffective treatments: None tried Associated symptoms: back pain, dizziness, headache and nausea Associated symptoms: no abdominal pain, no cough, no diaphoresis, no fever, no numbness, no shortness of breath, no syncope, no vomiting and no weakness PAST MEDICAL HISTORY Diagnosis Date - Hypertension PAST SURGICAL HISTORY Procedure Laterality Date - NONE - ORTHOPEDICS SURGERY HX july 2015 right hip replacement FAMILY HISTORY Problem Relation Age of Onset - Stroke Mother 70 Social History Tobacco Use - Smoking status: Former Smoker Packs/day: 1.00 Years: 40.00 Pack years: 40.00 Types: Cigarettes Start date: 11/10/1964 Last attempt to quit: 11/10/2004 Years since quittin.0 - Smokeless tobacco: Never Used Substance and Sexual Activity - Alcohol use: Yes Comment: socially - Drug use: No - Sexual activity: Not on file ALLERGIES No Known Allergies Review of Systems Constitutional: Negative for activity change, chills, diaphoresis and fever. HENT: Negative for dental problem, ear pain and sore throat. Eyes: Negative for photophobia, pain and visual disturbance. Respiratory: Negative for cough, chest tightness, shortness of breath and wheezing. Cardiovascular: Positive for chest pain. Negative for leg swelling and syncope. Gastrointestinal: Positive for nausea. Negative for abdominal pain, diarrhea and vomiting. Genitourinary: Negative for difficulty urinating, dysuria, flank pain, frequency and urgency. Musculoskeletal: Positive for back pain. Negative for arthralgias, myalgias, neck pain and neck stiffness. Skin: Negative for color change and rash. Neurological: Positive for dizziness and headaches. Negative for seizures, syncope, weakness, light-headedness and numbness. Hematological: Negative for adenopathy. Psychiatric/Behavioral: Negative for agitation, behavioral problems, confusion and suicidal ideas. The patient is not nervous/anxious. All other systems reviewed and are negative. Physical Exam BP 140/73 Pulse 67 Temp (Src) 98.6 (Oral) Resp 18 Wt 269 lb (122.0kg) SpO2 96% O2 Therapy: Room Air Physical Exam Vitals signs and nursing note reviewed. Constitutional: General: She is not in acute distress. Appearance: Normal appearance. She is well-developed. HENT: Head: Normocephalic and atraumatic. Right Ear: External ear normal. Left Ear: External ear normal. Mouth/Throat: Mouth: Mucous membranes are moist. Eyes: General: No scleral icterus. Right eye: No discharge. Left eye: No discharge. Conjunctiva/sclera: Conjunctivae normal. Pupils: Pupils are equal, round, and reactive to light. Neck: Musculoskeletal: Normal range of motion and neck supple. Trachea: No tracheal deviation. Cardiovascular: Rate and Rhythm: Normal rate and regular rhythm. Heart sounds: Normal heart sounds. No murmur. Pulmonary: Effort: Pulmonary effort is normal. No respiratory distress. Breath sounds: Normal breath sounds. Abdominal: General: Abdomen is flat. Bowel sounds are normal. There is no distension. Palpations: Abdomen is soft. There is no mass. Tenderness: There is no abdominal tenderness. There is no guarding or rebound. Musculoskeletal: Normal range of motion. General: No tenderness. Skin: General: Skin is warm and dry. Findings: No rash. Neurological: General: No focal deficit present. Mental Status: She is alert and oriented to person, place, and time. GCS: GCS eye subscore is 4. GCS verbal subscore is 5. GCS motor subscore is 6. Cranial Nerves: No cranial nerve deficit. Sensory: No sensory deficit. Coordination: Coordination normal. Comments: Normal speech. No facial droop or asymmetry. 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 Moves all extremities with purpose. No focal motor or sensory deficits. No focal neurological deficits. Psychiatric: Behavior: Behavior normal. Diagnostic Testing ED Labs Ordered and Reviewed CBC - Abnormal; Notable for the following components: Result Value Ref Range WBC 11.45 (*) 3.70 - 11.00 k/uL RBC 5.25 (*) 3.90 - 5.20 m/uL MCV 79.8 (*) 80.0 - 100.0 fL RDW-CV 15.8 (*) 11.5 - 15.0 % Platelet Count 446 (*) 150 - 400 k/uL All other components within normal limits COMP METABOLIC PANEL - Abnormal; Notable for the following components: Glucose 144 (*) 74 - 99 mg/dL BUN 69 (*) 7 - 21 mg/dL Creatinine 1.44 (*) 0.58 - 0.96 mg/dL Sodium 134 (*) 136 - 144 mmol/L Potassium 3.1 (*) 3.7 - 5.1 mmol/L Chloride 83 (*) 97 - 105 mmol/L CO2 31 (*) 22 - 30 mmol/L Anion Gap 20 (*) 9 - 18 mmol/L All other components within normal limits MAGNESIUM BLD - Abnormal; Notable for the following components: Magnesium 2.8 (*) 1.7 - 2.3 mg/dL All other components within normal limits HIGH SENSITIVITY TROPONIN T - Abnormal; Notable for the following components: NICHOLAS High Sensitivity 14 (*) <12 ng/L All other components within normal limits HIGH SENSITIVITY TROPONIN T Procedures ED Course / Clinical Impression ED Course as of Nov 14 1935 Rasheed Schneider's Documentation Sun Nov 14, 2019 1030 ED EKG INTERPRETATION: Normal sinus rhythm at 70 beats per minute Normal axis Normal intervals Nonspecific ST-T changes. No acute injury pattern. Interpretation by ED physician No change compared to prior EKG's ECG Complete W Interpretation and hand to Attending for review Clinical Impressions as of Nov 14 1935 Nonspecific chest pain Lightheadedness MDM / Disposition / Plan Placed in chest pain care pathway. Three cardiac enzymes were checked. No evidence of myocardial ischemia by serial cardiac enzymes. EKG shows sinus rhythm with no acute injury pattern. Dizziness is lightheadedness. May be due to medication. Discontinued Medrol Pack and Metolazone yesterday. Stable for DC from ED at this time. Referred to PCP for follow up. Advised to return to ED for repeat evaluation with any concerns. Patient agreeable with plan and verbalized understanding. Discharged home in stable condition. ED Medication Administration from 11/14/2019 0958 to 11/14/2019 1436 Date/Time Order Dose Route Action 11/14/2019 1052 aspirin 324 mg chewable tab(s) 324 mg ORAL Given 11/14/2019 1052 NaCl 0.9% 1,000 mL iv bolus 1,000 mL INTRAVENOUS New Bag/Syringe/Bottle 11/14/2019 1307 NaCl 0.9% 1,000 mL iv bolus 0 mL INTRAVENOUS Infusion Complete Disposition The patient was discharged. Counseled patient regarding lab results and radiology results. As well as the need for follow-up. Discharged home with verbal and written instructions. They were instructed to return as needed for persistent or worsening symptoms or any new concerns. Condition at disposition is stable. SIGNATURE: DO Rasheed Orantes, 11/14/19 1940 Normal [facility] High Sens Troponin Ton 11-14 High Sensitivity NICHOLAS 13 ng/L High <12 [facility] Comment on above: Result Comment: When assessing risk for acute coronary syndromes: In patients undergoing blood draw greater than or equal to 2 hours from symptom onset, with history of very low to moderate risk and non-ischemic ECG, an initial hs-Troponin T less than 12 ng/L AND a 1 hour delta hs-Troponin T less than 3 ng/L should be considered very low risk for 30 day MACE. Performed By: #### H STNT ####[facility] [address] [place], [place] [id number] High Sensitivity NICHOLAS 14 ng/L High <12 [facility] Comment on above: Result Comment: When assessing risk for acute coronary syndromes: In patients undergoing blood draw greater than or equal to 2 hours from symptom onset, with history of very low to moderate risk and non-ischemic ECG, an initial hs-Troponin T less than 12 ng/L AND a 1 hour delta hs-Troponin T less than 3 ng/L should be considered very low risk for 30 day MACE. Performed By: #### H STNT #### [facility] [address] [place], [place] [phone] Magnesiumon 11-14-2019 Magnesium [Mass/Vol] 2.8 mg/dL High 1.7-2.3 [facility] Comment on above: Performed By: #### C BC, CMP, MG1 #### [facility] [address] [place], [place] [phone] XR CHEST 1V FRONTAL PORTon 0 11-14-2019 XR CHEST 1V FRONTAL PORT * * *Final Report* * * DATE OF EXAM: Nov 14 2019 11:22AM MDX [id number] - XR CHEST 1V FRONTAL PORT / PROCEDURE REASON: Chest pain * * * * Physician Interpretation * * * * EXAMINATION: CHEST RADIOGRAPH (PORTABLE SINGLE VIEW AP) Exam Date/Time: 11/14/2019 11:22 AM Clinical History: Chest pain M: XCP_3 Comparison: 06/02/2017 RESULT: See impression. IMPRESSION: Lines, tubes, and devices: None. Lungs and pleura: No edema, infiltrates, pulmonary nodules or pleural effusions. Cardiomediastinal silhouette: Stable cardiomediastinal silhouette. Other: Special Service Officer: NINO Transcribe Date/Time: Nov 14 2019 11:25A Dictated by : SHEFALI JOSEPH MD This examination was interpreted and the report reviewed and electronically signed by: SHEFALI JOSEPH MD on Nov 14 2019 11:25AM EST [id number] Normal [facility] CNCOon 10-19-2019 CNCO HNO ID: [id number] Author: Mammography Coordinator Service: ? Author Type: Physician Type: Letter Filed: 10/20/2019 11:34 PM Note Text: October 19, 2019 PID: [id number] Asya CurielAlicia Claire [address] [place] [id number] Dear Ms. Claire, We are pleased to inform you that the results of your recent breast imaging exam on 10/19/2019 are normal. Early detection of cancer is very important. We also understand recommendations regarding breast cancer screening are controversial. Please discuss with your primary care provider which strategy is best for you and whether a mammogram is right for you. Your imaging studies and report will be kept on file at [facility] as part of your permanent medical record and are available for your continuing care. Thank you for allowing us to help in meeting your health care needs. Sincerely, Dr. Connolly Interpreting Radiologist [facility] (Normal over 40) Normal [facility] SCREENINGon 10-19-2019 [facility] SCREENING * * *Final Report* * * DATE OF EXAM: Oct 19 2019 3:25PM RUTH 0581 - [facility] SCREENING / PROCEDURE REASON: z12.31 screening * * * * Physician Interpretation * * * * #[id number] - [facility] SCREENING BILATERAL DIGITAL SCREENING MAMMOGRAM WITH CAD: 10/19/2019 HISTORY: Z12.31 Screening /Screening Mammogram-Patient reports NO symptoms. RESULT: TECHNIQUE: The study was acquired using full field digital technology and interpreted from soft copy. Current study was also evaluated with a Computer Aided Detection (CAD). Comparison is made to exams dated: 12/11/2016 mammogram, 01/24/2014 mammogram, 01/20/2013 mammogram, and 01/07/2012 mammogram - [facility]. There are scattered fibroglandular elements in both breasts. No significant masses, calcifications, or other findings are seen in either breast. There has been no significant interval change. IMPRESSION: NEGATIVE There is no mammographic evidence of malignancy. A 1 year screening mammogram is recommended. Johnathon Connolly M.D. pt/ollie:10/19/2019 16:04:44 Concrete Tile Machine Operator(s): RT Rhiannon(R)(M), [facility] letter sent: Normal over 40 Mammogram BI-RADS: 1 Negative Multiple national specialty organizations have released breast cancer screening guidelines for women at average risk for developing breast cancer - guidelines that are based on both evidence and opinion, yet differ on when to start and how often to screen for breast cancer. With representation from Breast Imaging, Internal Medicine, Women's Health, Family Medicine, and Medical/Surgical Oncology, the [facility] has carefully reviewed the data and reached the following consensus: 1) All women should engage in shared decision-making with their providers to decide when to start and how often to screen; 2) All women should have the opportunity to start screening mammography at age 40; 3) For women ages 45-55, we recommend annual screening mammograms; 4) For women ages 55 and over, we support both the transition from an annual to a biennial interval if this aligns more with patient's values and preferences, or continuation with annual screening; 5) All women should discuss with their providers when to stop screening mammograms. Special Service Officer: Ollie Transcribe Date/Time: Oct 19 2019 3:14P Dictated by : JOHNATHON CONNOLLY MD This examination was interpreted and the report reviewed and electronically signed by: JOHNATHON CONNOLLY MD on Oct 19 2019 4:04PM EST [id number] Normal [facility] PROGRESSon 10-19-2019 PROGRESS HNO ID: [id number] Author: Sai Jurado (Rt) Service: Radiology Author Type: Dining Service Supervisor Type: Progress Notes Filed: 10/19/2019 3:26 PM Note Text: Radiology Service Progress Note PATIENT NAME: Asya Claire DATE OF SERVICE: October 19, 2019 TIME: 3:26 PM PATIENT IDENTITY VERIFICATION COMPLETED USING TWO (2) IDENTIFIERS: Name and Date of confirmed by patient verbally. PATIENT GENDER DATA: Female. status: : No status: NO. PATIENT RELEVANT IMPLANT DATA REVIEWED: Not Applicable RADIOLOGY DEPARTMENT: Mammography PERIPHERAL IV DATA: Not applicable SIGNED BY: RT Rhiannon October 19, 2019 3:26 PM [facility] Surgical Pathologyon 018 Surgical Pathology [id number] [facility] [facility] [address] [place] [id number] FINAL SURGICAL PATHOLOGY REPORT NAME: ASYA CLAIRE .O.B.: 1945 72 Y F BILLING NO.: [id number]: [id number] B PROCEDURE 06/02/2018 DATE:SURGEON: ANTONIO CATES MD RECEIVED 06/03/2018 DATE:ATTENDING: ANTONIO CATES MD REPORT DATE: 06/08/2018 COPIES TO: DIA GNOSIS:A. UTERUS, CERVIX, BILATERAL TUBES AND OVARIES, HYSTERECTOMY WITH BILATERAL SALPINGO-OOPHORECTOMY - ENDOMETRIOID ADENOCARCINOMA, FIGO GRADE 2. SPECIMEN: Uterus with bilateral tubes and ovaries PROCEDURE: Simple hysterectomy SPECIMEN INTEGRITY: Intact uterus HISTOLOGIC TYPE: Endometrioid adenocarcinoma HISTOLOGIC GRADE: FIGO Grade 2 MYOMETRIAL INVASION: Present THICKNESS OF MYOMETRIUM: 16 mm DEPTH OF INVASION: 4 mm <50% of myometrium INVOLVEMENT OF CERVIX: Not identified INVOLVEMENT OF OTHER ORGANS: LEFT OVARY: Not involved LEFT FALLOPIAN TUBE: Not involved RIGHT OVARY: Not involved RIGHT FALLOPIAN TUBE: Not involved OTHER: LYMPHATIC/VASCULAR INVASION: Absent STAGING: PRIMARY TUMOR: pT1a [1A]: Tumor limited to endometrium or invades less than one half of the myometrium. REGIONAL LYMPH NODES: pN0: No regional lymph node metastasis Pelvic lymph nodes: Pelvic lymph node sampling performed. Number of nodes examined: 4. Number of nodes involved: 0. Para-aortic lymph nodes: No nodes submitted or found. Other nodes: N/A DISTANT METASTASIS: Not applicable AJCC 2017 STAGING: pT1a, pN0 MMR TESTING: Forthcoming TELEPHONE SUPERVISOR TUMOR BLOCK: A10 ADDITIONAL PATHOLOGIC FINDINGS: Unremarkable cervix, leiomyomata, unremarkable bilateral ovaries, unremarkable bilateral fallopian tubes.B. SENTINEL LYMPH NODE, LEFT PELVIC, EXCISION - ONE LYMPH NODE NEGATIVE FOR MALIGNANCY (0/1).C. SENTINEL LYMPH NODE, RIGHT PELVIC, EXCISION - THREE LYMPH NODES NEGATIVE FOR MALIGNANCY (0/3).SMT/SMAnnalise ONEAL M.D. CL INICAL INFORMATION:Endometrial cancerSPECIMEN: (A) UTERUS (RFN), WITH/WITHOUT TUBES AND OVARIES (B) SENTINEL LYMPH NODE, ALL SITES (C) LYMPH NODE(S) SPECIMEN __GROSS DESCRIPTION:A. Uterus, cervix, bilateral tubes and ovariesReceived in formalin is an intact uterus with attached bilateral adnexathat measures 1.5 cm in length and 4.5 cm cornu to cornu and weighs 92grams. The uterine serosa is mcghee pink smooth and glistening with asingle subserosal nodule on the posterior surface measuring 1.2 cm ingreatest dimension. Bivalving the uterus reveals a mcghee pink polypoidlesion occupying the superior to middle endometrial cavity occupyingthe anterior and posterior halves and measuring 1.5 x 1.5 x 0.2 cm.The ectocervix is shiny mcghee white with a round like os and measures 2.6cm in greatest dimension. The endometrial cavity measures 2.0 x 4.2 cmand the endocervical canal measures 3.8 cm in greatest dimension.There is a single white whorled nodule in the anterior lower uterinesegment measuring 0.9 cm in greatest dimension. The lesion appears stanley invasive into the inner 50% of myometrium and measures a depth of 4mm. The myometrium is pink mcghee soft and measures 1.6 cm in greatestdimension. Sectioning through the nodules does not reveal any areas ofhemorrhage or necrosis.The right ovary is smooth mcgehe pink and measures 2.2 x 1.0 x 0.5 cm andweighs 2 grams. Sectioning reveals an unremarkable mcghee pink cutsurface. The right fallopian tube is dark mcghee pink with a fimbriatedend and measures 4.5 cm in length by 0.5 cm in diameter. Sectioningreveals an unremarkable pinpoint lumen. The left ovary is smooth tanwhite and measures 1.9 x 1.1 x 0.6 cm and weighs 3 grams. Sectioningreveals an unremarkable mcghee pink cut surface. The left fallopian tubeis dark mcghee pink smooth and glistening with a fimbriated end andmeasures 4.5 cm in length by 0.5 cm in diameter. Sectioning reveals anunremarkable pinpoint lumen.Cassette Summary: 1 anterior cervix; 2 posterior cervix; 3 anteriorlower uterine segment; 4 - 6 are anterior endomyometrium fullthickness; 7 is posterior lower uterine segment; 8 - 11 is posteriorendomyometrium with 8 and 9 being a paired section and 10 and 11 fullthickness sections; 12 right adnexa; 13 left adnexa. (bits ss, 13)B. Left pelvic sentinel nodeReceived in formalin is fibrofatty tissue that measures 3.9 x 3.0 x 0.7cm. A single lymph node is identified measuring 2.0 cm in greatestdimension.Cassette Summary: 1 - 3 is one node. (bits ss, 3)C. Right pelvic lymph nodeReceived in formalin are fragments of fibrofatty tissue that aggregateto 4.8 x 4.8 x 0.6 cm. Three nodes are identified that range from 0.5to 3.8 cm.Cassette Summary: 1 is one node; 2 - 3 is one node; 4 - 7 is one node.(bits ss, 7) SJW/CALDisclaimer: The following statement applies to allimmunohistochemistry, in situ hybridization, molecular studies, andimmunofluorescence testing.The use of one or more reagents in the above tests is regulated as ananalyte specific reagent (ASR). These tests were developed and theirperformance characteristics determined by the clinical laboratories [facility]. They have not been cleared by the US Food and DrugAdministration (FDA). The FDA has determined that such clearance orapproval is not necessary.All the above immunostains were performed on paraffin embedded tissue.Appropriate positive and negative controls (where applicable) were runin parallel with the patient's specimen; these controls showed expectedstaining pattern, with acceptable intensity of staining.Immunohistochemic al assays have not been validated on decalcifiedtissues. Results should be interpreted with caution given the raisedpossibility of false negativity on decalcified specimens.Professional Performing Location: [place] [address]. DEPARTMENT OF PATHOLOGY AND LABORATORY MEDICINE [place], [place] Normal [facility] Basic Metabolic Panelon 05-10 Calcium mass conc 9.7 mg/dL Normal 8.4-10.4 [facility] Comment on above: Performed By: #### ALISSA KOO3M ####[address] [place], [place] Glucose mass conc 107 mg/dL High 70-100 [facility] Comment on above: Performed By: #### Mary HYDE BMP3M ####[address] [place], [place] Anion gap 3 molar conc 8 Normal [facility] Comment on above: Performed By: #### Mary HYDE BMP3M ####[address] [place], [place] CO2 molar conc 29 mmol/L Normal 22-30 [facility] Comment on above: Performed By: #### Mary HYDE BMP3M ####[address] [place], [place] Creatinine mass conc 0.89 mg/dL Normal 0.52-1.25 [facility] Comment on above: Performed By: #### Mary HYDE BMP3M ####[address] [place] [address] GFR/1.73 sq M predicted among blacks MDRD vol rate/area (S/P/Bld) mL/min/{1.73_m2} Normal >60 [facility] Comment on above: Performed By: #### Mary HYDE BMP3M ####[facility] [place] [address] GFR/1.73 sq M predicted among non-blacks MDRD vol rate/area (S/P/Bld) mL/min/{1.73_m2} Normal >60 [facility] Comment on above: Result Comment: Sour ce- MDRD equation with creatinine calibration to IDMS(NKDEP) eGFR not recommended for drug dose adjustment Performed By: #### ALISSA KOO3M ####[facility] [place] [address] Urea nitrogen mass conc 16 mg/dL Normal 7-20 [facility] Comment on above: Performed By: #### ALISSA KOO3M ####[facility] [place] [address] Chloride molar conc 103 mmol/L Normal 98-107 [facility] Comment on above: Performed By: #### Mary HYDE BMP3M ####[facility] [address] [place] [address] Potassium molar conc 3.7 mmol/L Normal 3.5-5.1 [facility] Comment on above: Performed By: #### Mary HYDE BMP3M ####[address] [place] [address] Sodium molar conc 140 mmol/L Normal 137-145 [facility] Comment on above: Performed By: #### Mary HYDE BMP3M ####[facility] [place] [address] Hemogramon 05-27-2018 Erythrocyte distribution width Auto Ratio (RBC) 16.3 % High 11.5-14.5 [facility] Comment on above: Performed By: #### ALISSA KOO3M ####[address] Hematocrit Auto Volume Fraction (Bld) 36.3 % Normal 35.0-47.0 [facility] Comment on above: Performed By: #### ALISSA KOO3M ####[address] Hemoglobin mass conc (Bld) 12.0 g/dL Normal 11.7-16.0 [facility] Comment on above: Performed By: #### ALISSA KOO3M ####[address] MCH Auto Entitic mass (RBC) 26.0 pg Normal 26.0-34.0 [facility] Comment on above: Performed By: #### ALISSA KOO3M ####[address] MCHC Auto mass conc (RBC) 32.9 % Normal 32.0-36.0 [facility] Comment on above: Performed By: #### ALISSA KOO3M ####[address] MCV Auto Entitic volume (RBC) 79.0 fL Normal 79.0-98.0 [facility] Comment on above: Performed By: #### ALISSA KOO3M ####[address] Platelet mean volume Auto Entitic volume (Bld) 7.7 fL Normal 7.4-10.4 [facility] Comment on above: Performed By: #### ALISSA KOO3M ####[address] Platelets Auto #/vol (Bld) 311 10*3/uL Normal 140-440 [facility] Comment on above: Performed By: #### ALISSA KOO3M ####[address] RBC Auto #/vol (Bld) 4.60 10*6/uL Normal 3.80-5.20 [facility] Comment on above: Performed By: #### H MARY ELLEN BMP3M ####[address] [place] [address] WBC Auto #/vol (Bld) 8.5 10*3/uL Normal 3.6-10.7 [facility] Comment on above: Performed By: #### H EMOG BMP3M ####[address] [place] [address] TS GELon 05-27-2018 TS GEL ABO Group: A Rh, Gel: NEG Antibody Screen Gel: NEG Normal [facility] Comment on above: Performed By: #### T SGL ####[address] [place] [address] Vital Signs Date Time Vital Sign Value Performing Clinician Jean Claudei kiarra 06-04-2023 10:25-0400 Body height 165.[address] Jarad Camargo Work Phone: [facility] 06-04-2023 10:23-0400 Body mass index (BMI) [Ratio] 45.5 kg/m2 Dr. Jarad Camargo Work Phone: [facility] 06-04-2023 10:23-0400 Body weight 124.[address] Jarad Camargo Work Phone: [facility] 06-04-2023 10:23-0400 Diastolic blood pressure 75 mm[Hg] Dr. Jarad Camargo Work Phone: [facility] 06-04-2023 10:23-0400 Systolic blood pressure 154 mm[Hg] Dr. Jarad Camargo Work Phone: [facility] 04-17-2022 10:12-0400 Diastolic blood pressure 65 mm[Hg] [facility] Work Phone: 04-17-2022 10:12-0400 Heart rate 84 /min [facility] Work Phone: 04-17-2022 10:12-0400 Respiratory rate 18 /min [facility] Work Phone: 04-17-2022 10:12-0400 Systolic blood pressure 165 mm[Hg] [facility] Work Phone: 04-17-2022 08:38-0400 Body height 165.1 cm [facility] Work Phone: 04-17-2022 08:38-0400 Body mass index (BMI) [Ratio] 43.2 kg/m2 [facility] Work Phone: 04-17-2022 08:38-0400 Body temperature 98 [degF] [facility] Work Phone: 04-17-2022 08:38-0400 Body weight 117.93 kg [facility] Work Phone: 04-17-2022 08:38-0400 SaO2% (BldA) [Mass fraction] 98 % [facility] Work Phone: Encounters Encounter Date Encounter Type Care Provider Facility Start: 09-23-2024 End: 09-23-2024 ambulatory Esha Vail Facility:[facility] Start: 09-23-2024 End: 09-23-2024 Discharged Recurring Esha Vail PA -Occupational Thera py Work Phone: Start: 08-24-2024 End: 08-24-2024 ambulatory Edouard LOMAX Facility:[facility] Start: 07-27-2024 End: 07-27-2024 ambulatory Raza LOMAX Facility:[facility] Start: 07-14-2024 End: 07-14-2024 ambulatory Raza LOMAX Facility:[facility] Start: 07-14-2024 End: 07-14-2024 ambulatory Raza LOMAX Facility:[facility] Start: 06-04-2023 End: 06-04-[address] Jarad Camargo Work Phone: [facility] Work Phone: Start: 06-04-2023 End: 06-04-[address] Jarad Camargo Work Phone: [facility]-Laboratory, Specimen Work Phone: Start: 06-04-2023 End: 06-04-[address] Jarad Camargo Work Phone: [facility] Work Phone: Start: 04-17-2022 End: 04-17-2022 Emergency department patient visit [facility] Start: 01-10-2022 End: 01-10-[address] [facility] Ultrasound Start: 01-07-2022 End: 01-07-[address] [facility]Out[facility] Breast Imaging Start: 06-02-2018 Patient encounter Antonio Cates [facility] Start: 05-27-2018 Patient encounter Antonio Cates [facility] Procedures Date Procedure Procedure Detail Performing Clinician Start: 04-17-2022 Plain x-ray of hand Start: 01-10-2022 Ultrasonography of breast Start: 01-07-2022 Screening mammography Plan of Treatment Date Care Activity Detail Author [facility] Work Phone: Immunizations Immunization Date Immunization Notes Care Provider Vishal delacruz 02-08-2021 Covid (Pfizer) [facility] 01-18-2021 Covid (Pfizer) [facility] Payers Date Payer Category Payer Self-pay [id number] 2020 Medicare [id number] Medicare [id number] Medicare [employer]ARE [id number] Medicare [employer]ICARE [id number] 500 [id number] Unknown Unknown [id number] [id number] Unknown [id number] [id number] [id number] Unknown [id number] [id number] [id number] Unknown [id number] 2.16.8 [id number] Unknown [id number] [id number] [id number] Social History Date Type Detail Facility Start: 04-17-2022 End: 06-04-2023 Tobacco smoking status SDIS Unknown if ever smoked [facility] Start: 1945 Sex Assigned At Female [facility] Start: 06-04-[address] [facility] Start: 01-20-2025 Sex Female (finding) [facility] Evaluation note Note Date & Type Note Facility Evaluation note No assessment information availa ble [facility] Work Phone: Evaluation note Note Date & Type Note Facility Evaluation note Diagnosis Onset Date Vulvodynia acute [facility] Work Phone: Reason for referral (narrative) Note Date & Type Note Facility Reason for referral (narrative) No reason for referral information available [facility] Work Phone: Summary Purpose Family History Relationship Condition Age at Onset Recorded Date/T vern mother Diabetes mellitus Unknown Cerebrovascular accident (CVA) Unknown Advance Directives Advance Directive Response Recorded Date/ Time Living Will Yes April 17, 2022 9 :04am Power of Quality Control Specialist Yes April 17, 2022 9:04am Hospital Course Note HNO ID: [id number] Author: Quinton Camargo Service: Family Practice Author Type: Physician Type: Discharge Summary Filed: 11/18/2019 6:51 AM Note Text: DISCHARGE SUMMARY PATIENT NAME: Asya Claire Code Status: Not on file Highest Readmission Risk Score: 11 The 30 day readmissions risk score is derived from an internally validated risk model which evaluates patient level characteristics, utilization history, medication orders and lab results up until the day of discharge. Patients with a score of 40 or above are considered highest risk for readmission. Specific patient level drivers will be listed at the bottom of the summary. Admission Information Admission Information ADMIT DATE: 11/16/2019 DISCHARGE DATE: 11/18/2019 MY DOCTORS AND MEDICAL TEAM: [facility] Doctor: Jarad Camargo Primary Care Provider: Jarad Camargo MD My Medical Team Members: Treatment Team: Attending Provider: Jarad Camargo MY CONDITION AT DISCHARGE: Stable REASON I WAS IN THE HOSPI (more content not included)... Chief Complaint and Reason for Visit Chief Complaint SCREENING inconclusive mamm left hand Chief Complaint 6m f/u Reason for Visit Vulvodynia Chief Complaint Admit Date OA [facility] JT R HAND/RX HERE September 232023 10:00am Additional Source Comments INFORMATION SOURCE (unrecogn ized section and content) DATE CREATED AUTHOR 06/09/2018 [facility] DATE CREATED AUTHOR AUTHOR'S ORGANIZ ATION 10/21/2019 [facility] DATE CREATED AUTHOR AUTHOR'S ORGANIZ ATION 11/18/2019 [facility] DATE CREATED AUTHOR AUTHOR'S ORGANIZ ATION 08/21/2024 [facility] DATE CREATED AUTHOR AUTHOR'S ORGANIZ ATION 01/22/2025 [facility] Goals (unrecognized section and content) Goals may be documented in a n alternate sectionGoals may be documented in an alternate sectionGoals may be documented in an alternate section Care Teams (unrecognized sec tion and content) Team Status: Active Member Role Status Dates Dr. Jarad Camargo MD Primary Care Provider Active Team Status: Inactive Member Role Status Dates Dr. Jarad Camargo MD Primary Care Provider, Refer ring Provider Active Dr. Macy Bryant DO Attending Provider Activ e Team Status: Inactive Member Role Status Dates Dr. Jarad Camargo MD Primary Care Provider Active Dr. Macy Bryant DO Attending Provider, Refe rring Provider Active Team Status: Inactive Member Role Status Dates Dr. Jarad Camargo MD Primary Care Provider Active Start: September 23, 2024 End: September 23, 2024 DAMI Leary Attending Provider Active Start : September 23, 2024 End: September 23, 2024 DAMI Leary Referring Provider Active Start : September 23, 2024 End: September 23, 2024 FOR RECORDS PERTAINING TO PATIENTS WHO ARE OR HAVE BEEN ENROLLED IN A CHEMICAL DEPENDENCY/SUBSTANCEABUSE PROGRAM, SOME INFORMATION MAY BE OMITTED. This clinical summary was aggregated from multiple sources. Caution should be exercised in using it in the provision of clinical care. This summary normalizes information from multiple sources, and as a consequence, information in this document may materially change the coding, format and clinical context of patient data. In addition, data may be omitted in some cases. CLINICAL DECISIONS SHOULD BE BASED ON THE PRIMARY CLINICAL RECORDS. [facility]. provides no warranty or guarantee of the accuracy or completeness of information in this document.
--- NOTE | 2025-05-08 08:40 | CT_ITS ---
EXAM: BRAIN/HEAD WITHOUT CONTRAST CLINICAL HISTORY: 79 y/o F with HEAD TRAUMA. COMPARISON: None. TECHNIQUE: Routine CT imaging of the head without IV contrast. Additional multiplanar reformats were obtained. Dose reduction techniques were used including intermediate exposure control (AEC),iterative reconstruction technique, and/or mA and/or KV dose adjustments based on patient's size. FINDINGS: The ventricles, sulci and cisterns are normal for patient age. There is no evidence of acute intracranial hemorrhage or herniation. There is no midline shift, mass effect, or extra-axial collection. Mild scattered supratentorial white matter hypodensities. The soriano and white matter interfaces are otherwise maintained. Prior ocular lens replacements. The visualized paranasal sinuses are unremarkable. Trace fluid within the left mastoid air cells. No acute calvarial fracture or scalp hematoma. CT/Brain/Head without Contrast IMPRESSION: No acute intracranial finding. Reading Location: [id number]
[2025-05-08] MEDS: morphine 8 MG/ML Syringe 6 MG IV (08:48)
[2025-05-08] MEDS: Ondansetron 4 MG/2 ML Vial IV (08:48)
[2025-05-08 08:49] LABS: Absolute Lymphocyte Count 1.69 X10^3/uL (0.83-4.51); Absolute Neutrophil Count 9.1 X10^3/uL (2.0-7.7); Basophil# 0.04 X10^3/uL; Basophil% 0.3 % (0-1); Eosinophil# 0.14 X10^3/uL; Eosinophils% 1.2 % (0-5); Hematocrit 37.8 % (37-47); Hemoglobin 12.7 g/dL (12.0-15.0); Lymphocyte # 1.69 X10^3/ul (0.83-4.51); Lymphocyte % 14.2 % (19-41); Mean Corp Hgb Conc 33.6 g/dL (32-36); Mean Corpuscular Hgb 27.4 pg (27.0-32.0); Mean Corpuscular Volume 81.6 fL (81-99); Monocyte# 0.87 X10^3/uL; Monocyte% 7.3 % (0-10); NRBC Flagged by Analyzer 0 % (0-5); Neutrophil # 9.13 X10^3/uL (2.7-7.7); Neutrophil % 76.7 % (47-70); Platelet Count 287 K/mm3 (150-450); RBC Distribution Width CV 14.9 % (11.6-14.6); RBC Distribution Width SD 43.8 fl (35.1-43.9); Red Blood Count 4.63 M/mm3 (4.2-5.4); White Blood Count 11.9 K/mm3 (4.4-11.0)
--- NOTE | 2025-05-08 09:10 | RAD_ITS ---
PROCEDURE: CHEST PA AND LATERAL 05/08/2025 REASON FOR EXAM: CHEST PAIN TECHNIQUE: CHEST PA AND LATERAL COMPARISON: Chest radiograph 11/16/2021. FINDINGS: Hardware: None. Heart: The heart size is normal. Mediastinum: The mediastinal contour is unremarkable. Lungs: No focal consolidation, pleural effusion or pneumothorax. Bones: Degenerative changes are identified within the thoracic spine. RAD/Chest PA and Lateral IMPRESSION: NO ACUTE FINDINGS. Reading Location: [id number]
--- NOTE | 2025-05-08 09:10 | RAD_ITS ---
PROCEDURE: WRIST MIN 3 VIEWS 05/08/2025 REASON FOR EXAM: FALL TECHNIQUE: WRIST MIN 3 VIEWS COMPARISON: None. FINDINGS: Bones: Diffuse bone demineralization. No obvious acute fracture. No aggressive osseous lesions. Joints: Normal alignment. Moderate to severe degenerative changes. Soft tissues: Soft tissues are unremarkable. RAD/Wrist min 3 Views IMPRESSION: No obvious acute fracture. Diffuse bone demineralization. Reading Location: [id number]
[2025-05-08 09:25] LABS: ALB/GLOB Ratio 1.2 RATIO (0.9-2.4); AST(SGOT) 29 U/L (<=31); Alanine Aminotransfer ALT/SGPT 14 U/L (<=34); Albumin, Serum 3.9 g/dL (3.4-4.8); Alkaline Phosphatase 118 U/L (35-104); Anion Gap 18 (5-15); BUN 18 mg/dL (4-19); BUN/Creat Ratio 15.7 RATIO (10-20); Calcium,Total 9.3 mg/dL (7.6-11.0); Carbon Dioxide 21.7 mmol/L (21.0-32.0); Chloride 99 mmol/L (98-108); Creatinine, Serum 1.15 mg/dL (0.70-1.20); EST Glomerular Filtration Rate 49 (>60); Estimated Creatinine Clearance 52.67 ml/min (50-250); Globulin 3.2 g/dL (2.2-4.2); Glucose 138 mg/dL (70-99); Protein, Total 7.1 g/dL (5.9-8.4); Sodium Level 139 mmol/L (133-145); Total Bilirubin 1.05 mg/dL (0.00-1.30); Troponin T High Sensitivity 12 ng/L (<=14)
[2025-05-08 10:15] VITALS: BP 132/64; PULSE 64; RESP 12; O2SAT 100
[2025-05-08 10:40] VITALS: BP 132/64; PULSE 64; RESP 12; TEMP 36.6; O2SAT 100
== END 2025-05-08 10:41 | disposition home or self-care (01) ==
PROVIDERS: Emergency Provider Emergency Medicine; PCP Family Medicine; Visit Provider Emergency Medicine
DX: S09.90XA Unspecified injury of head, initial encounter (principal); Z87.891 Personal history of nicotine dependence; I10 Essential (primary) hypertension; R07.89 Other chest pain; S63.92XA Sprain of unspecified part of left wrist and hand, initial encounter; W10.9XXA Fall (on) (from) unspecified stairs and steps, initial encounter
CPT/HCPCS: 70450; 71046; 73110; 80053; 84484; 85025; 93005; 96374; 96375; 99285; A4216; J2405

== ENCOUNTER 2025-06-29 09:56 | Emergency (ER) | payer MEDICARE, SELFPAY ==
[2025-06-29 09:56] VITALS: BP 191/61; PULSE 66; RESP 20; TEMP 36.6; O2SAT 98
--- NOTE | 2025-06-29 10:20 | CT_ITS ---
PROCEDURE: ABDOMEN/PELVIS W IV CONT ONLY 06/29/2025 REASON FOR EXAM: RIGHT FLANK/UPPER QUADRANT PAIN History of uterine carcinoma. TECHNIQUE: ABDOMEN/PELVIS W IV CONT ONLY Coronal and Sagittal reconstruction series were provided. CONTRAST: Isovue-300 VOLUME: 100 mL One or more dose reduction techniques were used (e.g., Automated exposure control, adjustment of the mA and/or kV according to patient size, use of iterative reconstruction technique. RADIATION DOSE SUMMARY: CTDlvol: 32.28 mGy DLP: 1693.72 mGycm COMPARISON: None FINDINGS: Lung bases: There is a 6 mm noncalcified nodule in the anterior aspect of the right lower lobe abutting the right major fissure. Liver: 3 mm cyst in the anterior aspect of the left lobe of the liver. There is a 11.9 mm hypodense nodule in the inferior aspect of the right lobe of the liver. This may represent a small cyst. Correlation with ultrasound recommended. Gallbladder: Mildly distended gallbladder. Multiple gallstones. Spleen: Normal size. Pancreas: Normal size without evidence of mass surrounding inflammation or ductal dilation. Adrenals: Unremarkable Kidneys: Unremarkable Bladder: Unremarkable Reproductive Organs: Prior hysterectomy. Adnexal regions are unremarkable. Bowel: Colonic diverticulosis without diverticulitis. Appendix: The appendix is not identified. There is no inflammatory process identified in the right lower quadrant to suggest appendicitis. Lymph nodes: Unremarkable. Vasculature: Mild diffuse atherosclerotic calcifications are noted. Peritoneum / Retroperitoneum: Unremarkable Bones: Degenerative changes of the spine. Prior bilateral total hip replacement. This causes beam hardening artifact in the region of the pelvis limiting the evaluation due to beam hardening artifact. CT/Abdomen/Pelvis W IV Cont ONLY IMPRESSION: Multiple gallstones. 11.9 mm hypodense nodule in the inferior aspect of the right lobe of the liver suggestive of a small cyst although correlation with ultrasound recommended. 6 mm noncalcified nodule in the anterior aspect of the right lower lobe abuttin g the right major fissure. Reading Location: [id number]
--- NOTE | 2025-06-29 10:21 | ED.VIS.GI ---
HPI HPI - GI History of Present Illness Chief Complaint: Flank Pain Narrative Narrative: Patient is a 79-year-old female presenting to the emergency department for right upper quadrant and right flank pain. Patient has a past medical history as below. Patient states that from around 830 to 9 AM she had the pain. It did not come in waves. She states it was constant. She then states that went away around 9 AM and came back around 945 and stopped when she arrived here. States that this is happened multiple times in the past and they have never found anything wrong. Reports that it usually occurs every month or so, not more than 1 time a month. Denies any known history of kidney stones. Denies any nausea or vomiting associated with it. Denies any diarrhea or constipation. Denies fever or chills. States she has seen GI in the past. [facility] Medical History Localized swelling on right hand Gout attack H/O cancer of uterus Bilateral plantar fasciitis Hypertension Home Medications ?Medication ?Instructions ?Recorded ?Last Taken ?Type amlodipine 10 mg tablet 10 mg PO DAILY 10/16/21 Unknown History furosemide 80 mg tablet 160 mg PO DAILY 10/16/21 Unknown History losartan 50 mg tablet 100 mg PO DAILY 10/16/21 Unknown History pantoprazole 40 mg tablet,delayed 40 mg PO DAILY 10/16/21 Unknown History release potassium chloride 10 mEq 20 meq PO DAILY 10/16/21 Unknown History capsule,extended release acetaminophen 650 mg 650 mg PO Q8H 12/03/22 Unknown History tablet,extended release (Tylenol Arthritis Pain) omega-3 fatty acids 1,000 mg 1,000 mg PO DAILY 12/03/22 Unknown History capsule vitamin A-vitamin C-vit E-min 1 tab PO DAILY 12/03/22 Unknown History tablet (Vision tablet) lidocaine 5 % topical ointment 1 applic topical TID PRN pain #30 06/16/23 Unknown Rx grams indomethacin 50 mg capsule 50 mg PO TID #21 caps 07/27/24 Unknown Rx Allergy/AdvReac Type Severity Reaction Status Date / Time No Known Allergies Allergy Verified 05/08/25 08:20 Family History Mother Diabetes CVA (cerebral vascular accident) Surgical History S/P breast biopsy S/P carpal tunnel release S/P cataract surgery S/P total hysterectomy Status post left hip replacement History of right hip replacement Status post bilateral knee replacements Social History Smoking Status: Former smoker alcohol intake: current alcohol intake frequency: holidays/special occasions only substance use type: does not use caffeine: Yes what type of physical activity do you participate in: none seatbelt use: always do you feel safe at home: Yes additional social history: ROS ROS ED ROS Narrative see HPI EXAM Physical Exam Narrative Exam Narrative: Vital signs: Reviewed General: Alert and orientedx3. No acute distress HEENT: Head is normocephalic and atraumatic, sinuses nontender, pupils equal round and reactive. Nares are patent. Oropharynx and throat exams normal. Neck: Supple without lymphadenopathy nontender Cardiovascular: Regular rate and rhythm, no murmurs. No rubs or gallops. Normal S1 and S2 Respiratory: Clear to auscultation bilaterally. No wheezes, rales, rhonchi Abdominal: Soft and nontender in all quadrants. No mack sign. No CVA tenderness. Normal bowel sounds. No guarding or rebound. Nonsurgical abdomen Extremities: No tenderness. No bruising. Normal range of motion. Normal sensation. Skin: No rash or redness. Neurological: Cranial nerves II through XII are grossly intact. Normal strength and sensation. Normal cerebellar function The rest of the physical exam is unremarkable Const Vital Signs: 06/29/25 09:56 06/29/25 11:56 06/29/25 14:58 Temperature 97.9 F 98.1 F 98.7 F Temperature Source Temporal Oral Pulse Rate 66 54 L 78 Respiratory Rate 20 H 16 16 Blood Pressure 191/61 H 136/50 H 134/76 H Blood Pressure Mean 104 78 95 Pulse Ox 98 99 99 Oxygen Delivery Method Room Air Room Air MDM MDM MDM Narrative Medical decision making narrative: Patient is a 79-year-old female presenting to the emergency department for right upper quadrant and right flank pain. Patient was seen and examined. Vitals are stable. Resting in bed comfortably no acute distress. Differential includes but is not limited to: Nephrolithiasis, pyelonephritis, cholecystitis, biliary colic Patient is pain-free at this time. Labs and imaging ordered. CBC with no leukocytosis and a normal hemoglobin. CMP with mild transaminitis with an AST of 99, ALT of 44 and alk phos of 185. Normal total bilirubin. CT of the abdomen and pelvis shows a mildly distended gallbladder with multiple gallstones. Also shows a hypodense nodule in the liver and a nodule in the lungs that are noted. Given the transaminitis and the gallbladder findings on CT, gallbladder ultrasound was ordered. This shows a heterogeneous vascular lesion involving the entirety of the gallbladder possibly representing gallbladder mass with suspected exophytic distention. They recommended surgical versus oncologic consultations. I did speak with Dr. Ramirez who recommended following up with this office and they will order a MRI for further differentiation. Patient was updated on the findings. She continues to be pain-free at this time. She is stable for outpatient management. Patient discharged from the Emergency Department. I do not feel that the patient's evaluation reveals any acute reason for admission at this time. I instructed them to either follow-up with their primary care physician or promptly return to the Emergency Department for reevaluation should symptoms worsen or new symptoms develop. I explained what symptoms would indicate the need to return to the emergency department. Shared decision making was used. The patient voiced understanding of the treatment plan and is agreeable with it. Clinical impression Gallbladder mass Transaminitis Right-sided abdominal pain History & Record Review Discussion w/independent historian: Patient Lab Data Attestation: I reviewed the patient's lab results. Labs: Laboratory Results - last 24 hr 06/29/25 06/29/25 10:05 11:30 WBC 8.5 RBC 4.46 Hgb 12.3 Hct 37.8 MCV 84.8 MCH 27.6 MCHC 32.5 RDW Std Deviation 45.0 H RDW Coeff of Issa 14.6 Plt Count 301 MPV 10.3 Immature Gran % (Auto) 0.400 Neut % (Auto) 58.7 Lymph % (Auto) 33.3 [place] % (Auto) 5.2 Eos % (Auto) 2.0 Baso % (Auto) 0.4 Absolute Neuts (auto) 5.0 Absolute Lymphs (auto) 2.82 Nucleated RBC % 0 Sodium 139 Potassium 3.6 Chloride 101 Carbon Dioxide 21.3 Anion Gap 17 H BUN 25 H Creatinine 1.09 Est GFR (MDRD) Non-Af 52 L BUN/Creatinine Ratio 22.5 H Glucose 160 H Calcium 9.2 Total Bilirubin 0.55 AST 99 H ALT 44 H Alkaline Phosphatase 185 H Total Protein 6.7 Albumin 3.7 Globulin 3.0 Albumin/Globulin Ratio 1.2 Lipase 30 Urine Color Yellow Urine Clarity Clear Urine pH 6.5 Ur Specific [place] 1.010 Urine Protein 15 H Urine Glucose (UA) Normal Urine Ketones Negative Urine Occult Blood Negative Urine Nitrite Negative Urine Bilirubin Negative Urine Urobilinogen Normal Ur Leukocyte Esterase Negative Radiography Diagnostic Testing: Clinical Impression(s) from Imaging Studies Abdomen/Pelvis CT 06/29/25 10:20 IMPRESSION: Multiple gallstones. 11.9 mm hypodense nodule in the inferior aspect of the right lobe of the liver suggestive of a small cyst although correlation with ultrasound recommended. 6 mm noncalcified nodule in the anterior aspect of the right lower lobe abutting the right major fissure. Reading Location: [facility] Gallbladder Ultrasound 06/29/25 12:15 IMPRESSION: *Heterogeneous vascular lesion involving the entirety of the gallbladder, possibly representing a gallbladder mass with suspected exophytic extension. Surgical/oncologic consultation is recommended. *Nonspecific increased echogenicity of the visualized pancreas. Reading Location: [id number] Discharge Plan Triage Chief Complaint: Flank Pain ED Provider: Adelita Mojica Dx/Rx/DC Orders Clinical Impression: Mass of gallbladder, Right sided abdominal pain Instructions: Abdominal Pain Prescriptions: No Action potassium chloride 10 mEq capsule, extended release 20 meq PO DAILY amlodipine 10 mg tablet 10 mg PO DAILY losartan 50 mg tablet 100 mg PO DAILY furosemide 80 mg tablet 160 mg PO DAILY pantoprazole 40 mg tablet,delayed release (DR/EC) 40 mg PO DAILY omega-3 fatty acids 1,000 mg capsule 1,000 mg PO DAILY acetaminophen [Tylenol Arthritis Pain] 650 mg tablet extended release 650 mg PO Q8H Vision Tablet 1 tab PO DAILY indomethacin 50 mg capsule 50 mg PO TID Qty: 21 0RF Rx Instructions: administer with food or milk lidocaine 5 % ointment 1 applic topical TID PRN (Reason: pain) Qty: 30 1RF Primary Care Provider: Jarad Camargo Referrals: Jarad Camargo MD [Primary Care Provider] - Raza Ramirez MD [Med Staff - Active Staff] - As soon as possible Activity Restrictions/Additional Instructions: Call the general surgeon below today to follow-up with soon as possible. Your evaluation in the Emergency Department did not reveal any acute reason for admission. However, I want to emphasize that you may be early in the course of a disease process or illness even if it is not present. For this reason you should follow-up within 24 hours for reevaluation with either your primary care physician or if necessary back here in the Emergency Department. You should return to the Emergency Department immediately if your symptoms worsen or new symptoms develop. Print Language: Greenlandic Disposition Disposition: Home, Self Care Discharge Date/Time: 06/29/25 14:58
[2025-06-29 10:33] LABS: Hematocrit 37.8 % (37-47); Hemoglobin 12.3 g/dL (12.0-15.0); Immature Granulocytes Count 0.030 X10^3/uL (0.0-0.0); Mean Corp Hgb Conc 32.5 g/dL (32-36); Mean Corpuscular Volume 84.8 fL (81-99); Mean Platelet Vol. 10.3 fl (6.2-12.0); NRBC Flagged by Analyzer 0 % (0-5); Platelet Count 301 K/mm3 (150-450); RBC Distribution Width CV 14.6 % (11.6-14.6); RBC Distribution Width SD 45.0 fl (35.1-43.9); Red Blood Count 4.46 M/mm3 (4.2-5.4); White Blood Count 8.5 K/mm3 (4.4-11.0)
--- NOTE | 2025-06-29 10:46 | ED.RN ---
was in excruciating pain but denies at this time. states unable to give urine sample at this time.
[2025-06-29 10:59] LABS: AST(SGOT) 99 U/L (<=31); Alanine Aminotransfer ALT/SGPT 44 U/L (<=34); Albumin, Serum 3.7 g/dL (3.4-4.8); Alkaline Phosphatase 185 U/L (35-104); Anion Gap 17 (5-15); BUN 25 mg/dL (4-19); BUN/Creat Ratio 22.5 RATIO (10-20); Calcium,Total 9.2 mg/dL (7.6-11.0); Carbon Dioxide 21.3 mmol/L (21.0-32.0); Chloride 101 mmol/L (98-108); Globulin 3.0 g/dL (2.2-4.2); Glucose 160 mg/dL (70-99); Lipase 30 U/L (13-75); Potassium 3.6 mmol/L (3.3-5.1)
[2025-06-29 11:46] LABS: Color, Urine Yellow (Yellow); Glucose, Dipstick Normal (Normal); Ketone-Dipstick Negative (Negative); Leukocyte Esterase-Dipstick Negative /ul (Negative); Nitrite-Dipstick Negative (Negative); Occult Blood-Urine Negative /ul (Negative); Protein-Dipstick 15 mg/dl (Negative); Specific Gravity, Urine 1.010 (1.002-1.030); Urine Bilirubin Dipstick Negative (Negative)
[2025-06-29 11:56] VITALS: BP 136/50; PULSE 54; RESP 16; TEMP 36.7; O2SAT 99
--- NOTE | 2025-06-29 12:15 | US_ITS ---
PROCEDURE: GALLBLADDER 06/29/2025 REASON FOR EXAM: TRANAMINITIS, GALLSTONES, DISTENDED COMPARISON: 06/2025 CT. FINDINGS: Liver: Measures 16.9 cm. Normal echogenicity. No masses. Gallbladder: 10.5 cm in length. Negative sonographic Mcgregor's sign. Throughout the entirety of the gallbladder there is a heterogeneous lesion with associated vascularity possibly representing a mass. There is possibly exophytic extension of the mass. Common bile duct: 5 mm. Pancreas: The visualized portions are nonspecifically echogenic. Other: The right kidney measures 10.7 cm in length. There is a lower pole 1.9 cm cyst. No hydronephrosis. US/Gallbladder IMPRESSION: *Heterogeneous vascular lesion involving the entirety of the gallbladder, possi alejandro representing a gallbladder mass with suspected exophytic extension. Surgical/oncologic consultation is recommended. *Nonspecific increased echogenicity of the visualized pancreas. Reading Location: [id number]
[2025-06-29 14:58] VITALS: BP 134/76; PULSE 78; RESP 16; TEMP 37.1; O2SAT 99
== END 2025-06-29 14:58 | disposition home or self-care (01) ==
PROVIDERS: Emergency Provider Student in an Organized Health Care Education/Training Program; PCP Family Medicine; Visit Provider Student in an Organized Health Care Education/Training Program
DX: K82.9 Disease of gallbladder, unspecified (principal); R91.1 Solitary pulmonary nodule; R16.0 Hepatomegaly, not elsewhere classified; R74.8 Abnormal levels of other serum enzymes; I10 Essential (primary) hypertension; Z79.899 Other long term (current) drug therapy; Z87.891 Personal history of nicotine dependence
CPT/HCPCS: 74177; 76705; 80053; 81002; 83690; 85025; 99283; Q9967; A4216

== ENCOUNTER → 2025-07-21 | Outpatient (CLI) | payer MEDICARE, SELFPAY ==
--- NOTE | 2025-07-21 10:02 | MRI_ITS ---
PROCEDURE: MRI ABD WITH AND W/O CONTRAST 07/21/2025 REASON FOR EXAM: GALLBLADDER MASS TECHNIQUE: Procedure Code: [id number] Modality: MR Procedure: MRI ABD WITH AND W/O CONTRAST Multiplanar and multisequence images were obtained. CONTRAST: Clariscan VOLUME: 24 mL COMPARISON: June 29, 2025 FINDINGS: Liver: Subcentimeter cysts left lobe liver is benign. Another in the right lobe, segment 6 shows some minimal enhancement at the margin is likely a hyalinized hemangioma. It has benign features and measures 2.0 x 1.4 cm. Biliary: A phrygian cap is seen. Additionally, a heterogeneously enhancing mass is seen occupying much of the body and fundus of the gallbladder. Areas of nodular enhancement are seen towards the fundus. Later phases of imaging show more homogeneous radiotracer uptake. The lesion is estimated at 4.9 x 8.1 cm and shows some diffusion restriction.. Alternatively, the nodular enhancing components seen at the margins of the gallbladder represent neoplasia in addition to tumefactive sludge. Several small calculi are seen at the distal body and near the neck. No biliary ductal dilation is present. No extension of the lesion into the adjacent liver. Pancreas: Normal. Spleen: Normal Adrenals: Normal Kidneys: No collecting system dilation or large calculus seen. Proteinaceous or hemorrhagic cyst right lower pole is 16 x 14 mm. Peritoneum / Retroperitoneum: No mass or lymph node enlargement. Lymph Nodes: None appear enlarged. Portacaval lymph node is 1.4 x 0.7 cm. Portal lymph node versus Calot's node is noted but not particularly enlarged in short axis. Major Vessels: Normal caliber Bones: No fracture. Grade 1 anterolisthesis L3 on L4. MRI/MRI Abd WITH and W/O Contrast IMPRESSION: 1. Enhancing mass/masses inside the gallbladder towards the body and fundus. Moderate size faceted gallstones near the gallbladder neck. No extension of soft tissue beyond the confines of the gallb ladder. Grossly, no upper abdominal lymphadenopathy. No biliary duct dilation. General surgical consultation sugg ested to exclude underlying malignancy. 2. Complex cyst right lower pole. Bosniak 2. No follow-up required. 3. Benign liver masses. No follow-up required. 4. Sliding hiatus hernia. Reading Location: [id number]
== END | disposition home or self-care (01) ==
LOC: OPMRI 09:59
PROVIDERS: PCP Family Medicine; Referring Provider Surgery; Visit Provider Surgery
DX: K82.8 Other specified diseases of gallbladder (principal); R10.9 Unspecified abdominal pain
CPT/HCPCS: 74183; A9575